=== PATIENT | male | born 1950 | race Caucasian/White ===

== ENCOUNTER 2021-05-29 15:15 | Observation (INO) | payer MEDICARE, OTHER ==
[~2021-05-29] VITALS: Ht 193 cm; Wt 84.3 kg
[2021-05-29 15:38] VITALS: BP 129/78
[2021-05-29] MEDS ORDERED: CARB1TAB22 PO (16:18)
[2021-05-29] MEDS ORDERED: ACET325T21 PO (16:18)
[2021-05-29] MEDS ORDERED: ARFO15VI NEB (16:18)
[2021-05-29] MEDS ORDERED: MENT7.6L2 PO (16:18)
[2021-05-29] MEDS ORDERED: ALEN70TA71 PO (16:18)
[2021-05-29] MEDS ORDERED: PREG100C PO (16:31)
[2021-05-29] MEDS ORDERED: POLY17PO5 PO (16:31)
[2021-05-29] MEDS ORDERED: MEMA5TAB PO (16:31)
[2021-05-29] MEDS ORDERED: CHOL10004 PO (16:31)
[2021-05-29] MEDS ORDERED: PROM25SU33 RC (16:31)
[2021-05-29] MEDS ORDERED: IPRA3AMP29 NEB (16:31)
[2021-05-29] MEDS ORDERED: ALPR0.5T PO (16:31)
[2021-05-29] MEDS ORDERED: DULO60CA6 PO (16:31)
[2021-05-29] MEDS ORDERED: CALC11776 PO (16:31)
[2021-05-29] MEDS ORDERED: DOCU100C28 PO (16:31)
--- NOTE | 2021-05-29 16:32 | NUR ---
NSG NOTE; ADMISSION ADMIT TO 107 FOR COVID SWAB BEFORE ADMISSION TO [facility]. PT ARRIVED VIA W/C ACCOMP BY TRANSPORT PERSONNEL DNR PAPERWORK SIGNED BY DR GONZALEZ PER DAUGHTER DANILO WHITE'S REQUEST.
[2021-05-29] MEDS ORDERED: ACETAMINOPHEN 325 MG TABLET PO PRN (17:45)
[2021-05-29] MEDS ORDERED: IPRATRPIUM/ALBUTEROL 0.5/2.5MG 3 ML NEBU. NEB PRN (17:45)
[2021-05-29] MEDS ORDERED: BENZOCAINE/MENTHOL LOZNGE 18'S BOX. PO PRN (17:45)
[2021-05-29] MEDS ORDERED: PROMETHAZINE 25 MG SUPP.RECT. RC PRN (17:45)
[2021-05-29] MEDS ORDERED: POLYETHYLENE GLYCOL 3350 17 GM PACKET. PO PRN (17:45)
[2021-05-29] MEDS ORDERED: DOCUSATE SODIUM 100 MG CAPSULE PO PRN (17:45)
[2021-05-29] MEDS ORDERED: CALCIUM CARBONATE 500 MG TAB.CHEW PO PRN (17:45)
[2021-05-29] MEDS ORDERED: ALBUTEROL SULFATE 2.5 MG/3 ML NEBU. NEB SCH (18:00)
[2021-05-29 18:06] LABS: BASO % 1 % (0-3); EOS # 0.3 x10^3/uL (0.0-0.7); EOS % 5 % (0-3); HEMATOCRIT 44.8 % (39.0-53.0); HEMOGLOBIN 14.7 g/dL (13.0-17.5); LYMPH # 1.6 x10^3/uL (1.0-4.8); LYMPH % 25 % (24-48); MEAN CORPUSCULAR HEMOGLOBIN 29 pg (25-35); MEAN CORPUSCULAR HGB CONC 33 g/dL (31-37); MEAN CORPUSCULAR VOLUME 90 fL (79-100); MONO # 0.5 x10^3/uL (0.0-1.1); MONO % 8 % (0-9); NEUT % 62 % (31-73); PLATELET COUNT 122 x10^3/uL (140-400); RED BLOOD COUNT 4.98 x10^6/uL (4.30-5.70); RED CELL DISTRIBUTION WIDTH 14.4 % (11.5-14.5); WHITE BLOOD COUNT 6.4 x10^3/uL (4.0-11.0)
[2021-05-29] MEDS: CARBIDOPA/LEVODOPA 25/100MG TABLET PO SCH ×2 (18:08→20:34)
[2021-05-29 18:24] LABS: ALBUMIN 3.5 g/dL (3.4-5.0); ALBUMIN/GLOBULIN RATIO 1.1 (1.0-1.7); CALCIUM 8.7 mg/dL (8.5-10.1); CREATININE 0.9 mg/dL (0.7-1.3); GFR 82.9; MAGNESIUM 2.3 mg/dL (1.8-2.4); TOTAL BILIRUBIN 0.6 mg/dL (0.2-1.0); TOTAL PROTEIN 6.8 g/dL (6.4-8.2)
--- NOTE | 2021-05-29 18:32 | EKG ---
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
[2021-05-29] MEDS: MEMANTINE 5 MG TABLET. PO SCH (20:34)
[2021-05-29] MEDS: PREGABALIN 50 MG CAPSULE PO SCH (20:34)
[2021-05-29] MEDS: ALPRAZolam 0.5 MG TABLET PO PRN (20:34)
[2021-05-29] MEDS ORDERED: NON FORMULARY ITEM (Arformoterol Tartrate (Brovana) 1 VIAL) NEB SCH (21:00)
[2021-05-29 22:24] LABS: BILIRUBIN,URINE NEG (NEG); CLARITY,URINE CLEAR; COLOR,URINE YELLOW; GLUCOSE,URINE NEG (NEG); NITRITE,URINE NEG (NEG); UROBILINOGEN,URINE 0.2 mg/dL (0.2 mg/dL)
[2021-05-29 22:25] LABS: BACTERIA,URINE 0 /HPF (0-FEW); RBC,URINE 0 /HPF (0-2); SQUAMOUS EPITHELIAL CELL,UR OCC /LPF; WBC,URINE 0 /HPF (0-4)
[2021-05-30] MEDS: ALBUTEROL SULFATE 8GM INHALER. INH SCH ×2 (04:35)
[2021-05-30] MEDS: CARBIDOPA/LEVODOPA 25/100MG TABLET PO SCH ×2 (04:35→09:41)
[2021-05-30] MEDS: ALPRAZolam 0.5 MG TABLET PO PRN (04:35)
[2021-05-30] MEDS: PREGABALIN 50 MG CAPSULE PO SCH (08:10)
[2021-05-30] MEDS: MEMANTINE 5 MG TABLET. PO SCH (08:10)
[2021-05-30] MEDS ORDERED: CHOLECALCIFEROL (VITAMIN D3) 1,000 UNIT TABLET PO SCH (09:00)
[2021-05-30] MEDS ORDERED: DULoxetine HCL 60 MG CAPSULE.DR PO SCH (09:00)
[2021-05-30 11:10] LABS: THYROXINE 5.5 ug/dL (4.5-12.0)
--- NOTE | 2021-05-30 11:32 | NUR ---
NSG NOTE; DISCHARGE VERBAL REPORT GIVEN TO ESTHER SAM AT 1115 PAPER COPY OF CHART SENT WITH PT DISCHARGED TO [facility] AT 1115 VIA W/C ACCOMP BY STAFF ALL PERSONAL ITEMS SENT WITH PT
[2021-05-30] MEDS ORDERED: MENT5LOZ MM (13:30)
[2021-05-30] MEDS ORDERED: ONDA4TAB12 PO (13:30)
[2021-05-30] MEDS ORDERED: CYCL-331 PO (13:30)
[2021-05-30 14:24] LABS: THYROID STIM HORMONE (TSH) 2.382 uIU/mL (0.358-3.740)
[2021-05-30] MEDS ORDERED: ALENDRONATE SODIUM 35 MG TABLET PO SCH (16:00)
[2021-05-31 00:09] LABS: HEMOGLOBIN A1C 5.7 % (4.8-5.6)
--- NOTE | 2021-05-31 20:11 | HP ---
HISTORY OF PRESENT ILLNESS: The patient is a 71-year-old male patient, a resident at [facility] in [place], [place], who was admitted to [address] [place] [address] to screening for COVID-19 before admission to [facility] as the patient has been agitated, anxious, restless and combative, hit staff member, sexually inappropriate remarks, grabbed staff buttocks, wandering into other rooms, attempts to redirection ____ as well as visits were not much helpful, and therefore, a decision was made to eventually admit him to [facility] for inpatient psychiatric stabilization. PAST MEDICAL HISTORY: Significant for Parkinson's disease, osteoarthritis, dysphagia and insomnia. PAST PSYCHIATRIC HISTORY: Significant for major depressive disorder and dementia. ALLERGIES: The patient has no known drug allergies. ALLERGIES TO MEDICATIONS: He is currently on following medications -- he is on promethazine 25 mg every 4 hours as needed rectally, ipratropium bromide, albuterol sulfate, and DuoNeb in 3 mL by nebulizer three times a day, Brovana 15 mcg 2 mL by nebulizer twice a day, cyclobenzaprine 10 mg every 8 hours, acetaminophen 650 mg every 6 hours, pregabalin 100 mg twice a day, duloxetine 60 mg daily, alprazolam 0.5 mg he takes every 8 hours, carbidopa/levodopa 25/100 one tablet 5 times a day, Namenda 5 mg twice a day, menthol cough drops every hour as needed, calcium carbonate, Tums Ultra strength 1 tablet 3 times a day as needed, Colace 100 mg twice a day as needed, propylene glycol 17 grams daily p.r.n. for constipation, ondansetron 4 mg every 4 hours as needed, cholecalciferol - vitamin D3 of 25 mcg daily, alendronate 70 mg once a week. FAMILY HISTORY: Noncontributory. SOCIAL HISTORY: He is , currently a resident at [facility] in [place], [place]. PHYSICAL EXAMINATION: GENERAL: When I examined him, he looked well and was clearly in no apparent respiratory distress. No pallor, jaundice, cyanosis, or thyromegaly. No jugular venous distention. No limb edema. VITAL SIGNS: Her heart rate was 67, blood pressure is 129/78, temperature 97.6, respiratory rate was 16 and oxygen saturation was 97% on room air. HEAD, EYES, EARS, NOSE, AND THROAT: Normocephalic, atraumatic. NECK: Supple. HEART: Normal first and second sounds, no gallop or murmur. CHEST: Clear to auscultation. No crepitation or rhonchi. ABDOMEN: Distended, soft, nontender. NEUROLOGIC: He was awake, alert, very soft spoken; poor facial expression and patient is very unsteady on his feet. ASSESSMENT AND PLAN: The patient was admitted and lab works were ordered including CBC, CMP as well as coronavirus. Once his coronavirus test becomes available is negative, the patient will be admitted to [facility] for inpatient psychiatric stabilization. KIMBERLY/MARLA DR: Dave TID: [id number]
--- NOTE | 2021-05-31 21:06 | DS ---
DATE OF DISCHARGE: 05/30/2021 HOSPITAL COURSE: The patient is a 71-year-old male patient, a resident at [facility] in [facility], was admitted to [address] [place] [address] and his coronavirus by PCR was negative and therefore, he was discharged to [facility] for inpatient psychiatric stabilization. PHYSICAL EXAMINATION: GENERAL: On the day of discharge, the patient looked well and was clearly in no apparent respiratory distress. No pallor, jaundice, cyanosis, or thyromegaly. No jugular venous distention. No limb edema. VITAL SIGNS: His heart rate was 70, blood pressure was 125/70, temperature was 98, respiratory rate was 18, and oxygen saturation was 96% on room air. The rest of clinical examination is stable. LABORATORY DATA: Showed white cell count is 6400, hemoglobin 14.7, hematocrit 44, MCV 90, and platelet count of 122,000. Chemistry showed a serum sodium of 144, potassium 4, chloride 109, bicarbonate 29, anion gap of 6, BUN 17, creatinine 0.9. Estimated GFR was 83 mL per minute. His glucose was 83, calcium was 8.7, magnesium was 2.3. Total bilirubin, AST, ALT, alkaline phosphatase were normal. Total protein was 6.8, albumin 3.5. His D-dimer was 0.43. Urinalysis essentially unremarkable and his treponema pallidum antibodies were nonreactive and coronavirus by PCR was negative. DISCHARGE MEDICATIONS: He was discharged to [facility] to continue on Brovana 15 mcg in 2 mL by nebulizer twice a day, calcium carbonate/extra strength Tums 3 times a day, carbidopa/levodopa 25/100 five times a day, cholecalciferol 3000 unit once a day, Namenda 5 mg twice a day. He is on acetaminophen 650 mg every 6 hours, alendronate 70 mg once a week, alprazolam 0.5 mg every 8 hours, Colace 100 mg daily p.r.n. for constipation, duloxetine 60 mg p.o. daily for depression, DuoNeb 0.5/2.5 in 3 mL by nebulizer four times a day, polyethylene glycol 17 grams daily; pregabalin, Lyrica 100 mg twice a day; promethazine 25 mg suppositories 3 times a day. FINAL DISCHARGE DIAGNOSES: Parkinson's disease, dysphagia, insomnia, generalized osteoarthritis, osteoporosis. MICHELLE DR: Dave TID: [id number]
== END 2021-05-30 11:15 ==
LOC: INTOOBSV 15:15 → 1 SOUTH 15:15
PROVIDERS: ADMIT Internal Medicine; ATTEND Internal Medicine
DX: G20 Parkinson's disease (principal); Z20.822 Contact with and (suspected) exposure to COVID-19; G47.00 Insomnia, unspecified; M81.0 Age-related osteoporosis without current pathological fracture; M15.9 Polyosteoarthritis, unspecified; R13.10 Dysphagia, unspecified; R45.1 Restlessness and agitation; F03.90 Unspecified dementia, unspecified severity, without behavioral disturbance, psychotic disturbance, mood disturbance, and anxiety; F32.9 Major depressive disorder, single episode, unspecified
CPT/HCPCS: 36415; G0378; G0379; 80053; 80061; 81001; 82306; 82607; 83036; 83540; 83550; 83735; 84436; 84443; 84480; 85025; 85379; 86592; 93005; U0003

== ENCOUNTER 2021-05-30 11:15 | Inpatient (IN) | payer MEDICARE, OTHER ==
[~2021-05-30] VITALS: Ht 190.5 cm; Wt 86.5 kg
[~2021-05-30 11:15] MED LIST: ACET325T21 PO; ALEN70TA71 PO; ALPR0.5T PO; ARFO15VI NEB; CALC11776 PO; CARB1TAB22 PO; CHOL10004 PO; DOCU100C28 PO; DULO60CA6 PO; IPRA3AMP29 NEB; MEMA5TAB PO; MENT7.6L2 PO; POLY17PO5 PO; PREG100C PO; PROM25SU33 RC
--- NOTE | 2021-05-30 11:30 | NUR ---
Admission Note with Justification for Admission to [facility] Patient admitted to [facility] for protective oversight for emergency stabilization of acute psychiatric crisis. Pt admitted from: SNF Mode of arrival: EMS Accompanied By: [facility] Staff Precipitating behaviors that initiated intake and admission: Patient was reported to be agitated with staff and making verbal threats to beat their asses, grabbing a staff member on her buttock while she was assisting him to bed, wandering in halls and in other residents' rooms, resisting care and attempting to hit staff. He reportedly attempted to hug, kiss, and show genitals to staff and having hallucinations that was present when she was not. Description of failure of out patient attempts at stabilization in previous setting list behavior and medication trials: Verbal redirection and medication changes were ineffective Behaviors and assessment findings upon admission: Patient was disorganized, confused, and tangental on admission. He was hallucinating and reaching for items on the floor that were not there. He is restless and impulsive, repeatedly attempting to stand without assistance. Plan: Admit for protective oversight for adjustment and stabilization of medications, behaviors and mood. Intense treatment regimen including groups, medication adjustments, therapy, consistent regimen for ADL's, self care, and sleep hygiene. Daily monitoring by Inpatient staff, Psychiatry, and Medical Physician.
[2021-05-30] MEDS ORDERED: ACETAMINOPHEN 325 MG TABLET PO PRN (13:00)
[2021-05-30] MEDS ORDERED: METHYL SALICYLATE/MENTHOL TOPICAL OINTMENT 57GM TUBE. TP PRN (13:00)
[2021-05-30] MEDS ORDERED: MAG HYDROX/AL HYDROX/SIMETH 30 ML ORAL.SUSP PO PRN (13:00)
[2021-05-30] MEDS ORDERED: MAGNESIUM HYDROXIDE 2,400 MG/30 ML ORAL.SUSP. PO PRN (13:00)
[2021-05-30] MEDS ORDERED: CYCLOBENZAPRINE 10 MG TABLET. PO PRN (13:15)
[2021-05-30] MEDS ORDERED: PROMETHAZINE 25 MG SUPP.RECT. RC PRN (13:15)
[2021-05-30] MEDS ORDERED: POLYETHYLENE GLYCOL 3350 17 GM PACKET. PO PRN (13:15)
[2021-05-30] MEDS ORDERED: DOCUSATE SODIUM 100 MG CAPSULE PO PRN (13:15)
[2021-05-30] MEDS ORDERED: ONDANSETRON ODT 4 MG TAB.RAPDIS PO PRN (13:15)
[2021-05-30] MEDS ORDERED: CYCL-331 PO (13:30)
[2021-05-30] MEDS ORDERED: MENT5LOZ MM (13:30)
[2021-05-30] MEDS ORDERED: ONDA4TAB12 PO (13:30)
[2021-05-30 13:57] VITALS: BP 117/76
[2021-05-30] MEDS: CARBIDOPA/LEVODOPA 25/100MG TABLET PO SCH ×3 (14:00→21:29)
[2021-05-30] MEDS ORDERED: BENZOCAINE/MENTHOL LOZNGE 18'S BOX. PO PRN (14:00)
[2021-05-30] MEDS ORDERED: CALCIUM CARBONATE 500 MG TAB.CHEW PO PRN (14:00)
[2021-05-30] MEDS ORDERED: IPRATROPIUM/ALBUTEROL 20/100mcg/INH INHALER. INH PRN (14:00)
[2021-05-30 16:03] VITALS: BP 107/76
[2021-05-30] MEDS: ALBUTEROL SULFATE 8GM INHALER. INH SCH ×2 (17:44→20:00)
[2021-05-30] MEDS: PREGABALIN 50 MG CAPSULE PO SCH (21:29)
[2021-05-30] MEDS: MEMANTINE 5 MG TABLET. PO SCH (21:29)
--- NOTE | 2021-05-30 22:11 | PDOC ---
Exam Note: Hank Note: Please also refer to the separate dictated note~for this date of service dictated separately.~Patient seen individually. Discussed the patient with Nursing staff reviewed the chart.~Reviewed interim history and current functioning. Reviewed vital signs,~Labs/ Radiology~and current medications noted below. Continue current treatment with the changes noted in the dictated addendum note Assessment: Vital Signs/I&O: Vital Signs Date Time Temp Pulse Resp B/P (MAP) Pulse Ox O2 Delivery O2 Flow Rate FiO2 05/30/21 16:03 97.1 78 19 107/76 (86) 94 Room Air Current Medications: Meds: Current Medications Medications (Trade) Dose Ordered Sig/Altaf Route PRN Reason Start Time Stop Time Status Last Admin Dose Admin Carbidopa/Levodopa (Sinemet 25/100) 1 tab 5XDAY PO 05/30/21 14:00 05/30/21 21:29 Memantine (Namenda) 5 mg BID PO 05/30/21 21:00 05/30/21 21:29 Pregabalin (Lyrica) 100 mg BID PO 05/30/21 21:00 05/30/21 21:29 I have reviewed the current psychotropics carefully including drug interactions. Risk benefit ratio favors no change other than as noted in my dictated progress note. Diagnosis: Problems: (1) Major neurocognitive disorder RENEE RAINEY MD May 30, 2021 22:11
--- NOTE | 2021-05-31 00:16 | NUR ---
Pt lying in bed when approached. Pt has been wandering in the hallway talking to himself and the door frame, appearing to hold a conversation with no one in particular. Pt also confused, disorganized, and restless. Pt cooperative with assessment, initially compliant with medications administered crushed in pudding but tried to smack the spoon out of my hand while attempting to administer the last bite. I was able to calm and distract him, re-approaching with the last bite of meds after a few moments and pt took it.
[2021-05-31] MEDS: ALENDRONATE SODIUM 35 MG TABLET PO SCH (05:57)
[2021-05-31] MEDS: CARBIDOPA/LEVODOPA 25/100MG TABLET PO SCH ×5 (05:57→20:18)
[2021-05-31] MEDS ORDERED: ALENDRONATE SODIUM 35 MG TABLET PO SCH (06:00)
[2021-05-31 06:24] VITALS: BP 138/95
--- NOTE | 2021-05-31 06:28 | EKG ---
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
[2021-05-31] MEDS: PREGABALIN 50 MG CAPSULE PO SCH ×2 (08:14→20:17)
[2021-05-31] MEDS: MEMANTINE 5 MG TABLET. PO SCH ×2 (08:14→20:17)
[2021-05-31] MEDS: DULoxetine HCL 60 MG CAPSULE.DR PO SCH (08:18)
[2021-05-31] MEDS: ALBUTEROL SULFATE 8GM INHALER. INH SCH ×4 (08:19→20:17)
[2021-05-31] MEDS: CHOLECALCIFEROL (VITAMIN D3) 1,000 UNIT TABLET PO SCH (08:21)
[2021-05-31 15:22] VITALS: BP 107/71
--- NOTE | 2021-05-31 19:28 | NUR ---
Pt up adl in [place]. Has been unsteady at times. Pt confused but has been compliant with meds and cares.
--- NOTE | 2021-05-31 20:09 | HP ---
ADMIT DATE: 05/30/2021 PSYCHIATRIC ADMISSION HISTORY/EVALUATION This is a late entry, date of service, 05/30/2021, covers elements not covered in my initial note of 05/30/2021. The patient was seen individually on the evening of 05/30/2021. IDENTIFYING DATA: The patient is a 71-year-old male with diagnosis of dementia, Alzheimer's with behavioral disturbances, referred from [facility] by his primary care physician in [place], [place], after the patient was extremely agitated with staff and making verbal threats to beat their asses. He grabbed a staff from the buttock while she was insisting him to bed. He was wandering in the hallways and in other rooms. He was resistive of cares attempting to hit staff. He had attempted to hug and kiss staff, showed his genitals to staff. He was hallucinating that his was present in front of him. He has failed outpatient psychiatric interventions resulting in this referral. CHIEF COMPLAINT: "No." I met with the patient in his room. He is oriented just to himself on the evening of 05/30/2021. HISTORY OF PRESENT ILLNESS: The patient has a history of dementia, Alzheimer's, vascular type. He has been residing at the [facility] for some time, getting much more agitated, aggressive, confused, disruptive, and unmanageable. He has had sleep and appetite changes. No active suicidal or homicidal ideation, but behaviors have been dangerous having failed outpatient psychiatric interventions. PAST PSYCHIATRIC HISTORY: As above. MEDICAL HISTORY: Parkinson's disease, frequent falls, dysphagia, insomnia, osteoporosis, chronic pain, chronic constipation, emphysema, GERD. ACCU-CHEKS: None. CODE STATUS: FULL CODE. DRUG ALLERGIES: Negative. DIET: Mechanical soft diet. Takes medications whole, crushed. Ambulates in wheelchair. CURRENT PSYCHOTROPICS: Cymbalta 60 mg a day, Xanax p.r.n., Lyrica 100 mg b.i.d., Namenda 5 mg b.i.d., Sinemet 25/100 5 times a day. FAMILY HISTORY: Noncontributory. SOCIAL HISTORY: No history of alcohol, drug abuse, physical, sexual or elder abuse. He is not known to be a perpetrator. REACTION TO HOSPITALIZATION: The patient oblivious of this. ASSETS: Supportive living at the above facility, supportive family. REVIEW OF SYSTEMS: No CV, , pulmonary, eye, ENT system symptoms on review. Reliability poor. MENTAL STATUS EXAMINATION: Oriented to himself. Insight, judgment, recent and remote memory, attention, concentration, fund of knowledge poor consistent with his diagnosis. IMPRESSION: Major neurocognitive disorder, Alzheimer, vascular with delusion, depression, behavioral disturbance; anxiety disorder, unspecified; impulse control disorder, unspecified. Rest unchanged as noted above. PLAN: Admit to geropsychiatry unit at [facility]. I will see the patient daily individually from a psychiatric standpoint, medical followup with Dr. Silva/Dr. Miller. Continue current psychotropics. Observe baseline. Adjust further as clinically indicated. ESTIMATED LENGTH OF STAY: 10-12 days. DISPOSITION PLANS: Back to assisted when stable. FLAQUITA DR: Jordon TID: [id number]
[2021-05-31] MEDS: MIRTAZAPINE 7.5 MG TABLET. PO SCH (20:17)
--- NOTE | 2021-05-31 22:22 | PDOC ---
Exam Note: Hank Note: Please also refer to the separate dictated note~for this date of service dictated separately.~Patient seen individually. Discussed the patient with Nursing staff reviewed the chart.~Reviewed interim history and current functioning. Reviewed vital signs,~Labs/ Radiology~and current medications noted below. Continue current treatment with the changes noted in the dictated addendum note Assessment: Vital Signs/I&O: Vital Signs Date Time Temp Pulse Resp B/P (MAP) Pulse Ox O2 Delivery O2 Flow Rate FiO2 05/31/21 15:22 97.9 74 18 107/71 (83) 97 Room Air I & O 05/30/21 05/30/21 05/31/21 15:00 23:00 07:00 Intake Total 240 ml 240 ml Balance 240 ml 240 ml Current Medications: Meds: Current Medications Medications (Trade) Dose Ordered Sig/Altaf Route PRN Reason Start Time Stop Time Status Last Admin Dose Admin Acetaminophen (Tylenol) 650 mg PRN Q6HRS PRN PO MILD PAIN / TEMP > 100.3'F 05/30/21 13:00 Multi-Ingredient Ointment (Analgesic [place]) 1 abdi PRN QID PRN TP MUSCLE PAIN 05/30/21 13:00 Al Hydroxide/Mg Hydroxide (Mylanta Plus Xs) 15 ml PRN AFTMEALHC PRN PO DYSPEPSIA 05/30/21 13:00 Magnesium Hydroxide (Milk Of Magnesia) 2,400 mg PRN QHS PRN PO CONSTIPATION 05/30/21 13:00 Alprazolam (Xanax) 0.5 mg PRN Q8HRS PRN PO ANXIETY 05/30/21 13:15 Carbidopa/Levodopa (Sinemet 25/100) 1 tab 5XDAY PO 05/30/21 14:00 05/31/21 20:18 Vitamin D (Vitamin D3) 2,000 unit DAILY PO 05/31/21 09:00 05/31/21 08:21 Cyclobenzaprine HCl (Flexeril) 10 mg PRN Q8HRS PRN PO MUSCLE SPASMS 05/30/21 13:15 Docusate Sodium (Colace) 100 mg PRN DAILY PRN PO CONSTIPATION 05/30/21 13:15 Duloxetine HCl (Cymbalta) 60 mg DAILY PO 05/31/21 09:00 05/31/21 08:18 Albuterol/ Ipratropium (Combivent Respimat 20-100 Mcg) 1 puff PRN TID PRN INH SHORTNESS OF BREATH 05/30/21 14:00 Memantine (Namenda) 5 mg BID PO 05/30/21 21:00 05/31/21 20:17 Ondansetron HCl (Zofran Odt) 4 mg PRN Q4HRS PRN PO NAUSEA/VOMITING 05/30/21 13:15 Polyethylene Glycol (miraLAX) 17 gm PRN DAILY PRN PO CONSTIPATION 05/30/21 13:15 Promethazine HCl (Phenergan Supp) 25 mg PRN Q4HRS PRN RC NAUSEA 05/30/21 13:15 Alendronate Sodium (Fosamax) 70 mg WEEKLY@0600 PO 05/31/21 06:00 05/30/21 22:18 DC Albuterol Sulfate (Ventolin Hfa Inhaler) 1 puff RTQID INH 05/30/21 16:00 05/31/21 20:17 Calcium Carbonate/ Glycine (Tums) 500 mg TID PRN PRN PO HEARTBURN / GAS 05/30/21 14:00 Throat Lozenges (Cepacol Sore Throat Lozenge) 1 linnette PRN Q2HR PRN PO COUGH 05/30/21 14:00 Pregabalin (Lyrica) 100 mg BID PO 05/30/21 21:00 05/31/21 20:17 Alendronate Sodium (Fosamax) 70 mg Sa PO 05/31/21 06:00 05/31/21 05:57 Mirtazapine (Remeron) 7.5 mg QHS PO 05/31/21 21:00 05/31/21 20:17 Current Medications Medications (Trade) Dose Ordered Sig/Altaf Route PRN Reason Start Time Stop Time Status Last Admin Dose Admin Vitamin D (Vitamin D3) 2,000 unit DAILY PO 05/31/21 09:00 05/31/21 08:21 Duloxetine HCl (Cymbalta) 60 mg DAILY PO 05/31/21 09:00 05/31/21 08:18 Alendronate Sodium (Fosamax) 70 mg Sa PO 05/31/21 06:00 05/31/21 05:57 Mirtazapine (Remeron) 7.5 mg QHS PO 05/31/21 21:00 05/31/21 20:17 I have reviewed the current psychotropics carefully including drug interactions. Risk benefit ratio favors no change other than as noted in my dictated progress note. Diagnosis: Problems: (1) Dementia in Alzheimer's disease with delusions (2) Dementia in Alzheimer's disease with depression (3) Dementia, vascular, with delusions (4) Dementia, vascular, with depression (5) Dementia of the Alzheimer's type with early onset with behavioral disturbance (6) Impulse control disorder, unspecified (7) Anxiety disorder, unspecified (8) Major neurocognitive disorder RENEE RAINEY MD May 31, 2021 22:22
--- NOTE | 2021-06-01 01:13 | NUR ---
Pt sitting up in w/c in the hallway when approached. Pt restless, confused, and disorganized. Pt having VH, reaching for things on the floor that are not there. Pt resistive with re-direction at times. Pt cooperative with assessment and compliant with medications administered whole with encouragement. NO SIB, agitation, or aggression noted thus far this shift.
[2021-06-01] MEDS: CARBIDOPA/LEVODOPA 25/100MG TABLET PO SCH ×6 (05:31→20:22)
[2021-06-01 06:06] VITALS: BP 98/60
[2021-06-01] MEDS: ALBUTEROL SULFATE 8GM INHALER. INH SCH ×5 (08:00→20:22)
[2021-06-01] MEDS: MEMANTINE 5 MG TABLET. PO SCH ×2 (09:39→20:22)
[2021-06-01] MEDS: CHOLECALCIFEROL (VITAMIN D3) 1,000 UNIT TABLET PO SCH (09:39)
[2021-06-01] MEDS: PREGABALIN 50 MG CAPSULE PO SCH ×2 (09:40→20:23)
[2021-06-01] MEDS: DULoxetine HCL 60 MG CAPSULE.DR PO SCH (09:40)
[2021-06-01 15:42] VITALS: BP 121/77
[2021-06-01] MEDS: DIVALPROEX 125 MG CAP.SPRINK PO SCH (17:56)
--- NOTE | 2021-06-01 18:30 | NUR ---
Patient has been labile, generally withdrawn to his room, confused, and irritable throughout this shift. He was irritable in the morning and resistive to morning medications. Patient was asleep during lunch and did not want to take his medications when aroused. He also refused to take his inhaler at supper time. Will continue to monitor and report to oncoming shift.
[2021-06-01] MEDS: MIRTAZAPINE 7.5 MG TABLET. PO SCH (20:23)
--- NOTE | 2021-06-01 23:19 | NUR ---
Patient is located in his room for assessment and medications. He is disorganized, confused. Does not answer assessment questions. Irritable and snarky when informed that he needed to change his wet brief, stating "No, I think I'll just do it in the morning." Staff informed him that this is a psychiatric unit and we will not just allow the patient to sleep in a wet brief. He continued to refuse. A third staff member was called for assistance in cleaning the patient up. He expressed his irritability but did allow staff to change him. When asked to lay down in the bed so he could be covered up, he stated "Keep your hands off of me." Staff told patient that was fine and he could lay down when he felt like it, and exited the room. Patient chose to remain sitting up for a short time, and then went to sleep. He appears to be sleeping comfortably at present time. Will continue to monitor.
[2021-06-02] MEDS: ALPRAZolam 0.5 MG TABLET PO PRN ×2 (01:31→20:27)
[2021-06-02] MEDS: CARBIDOPA/LEVODOPA 25/100MG TABLET PO SCH ×6 (05:50→20:27)
[2021-06-02 06:14] VITALS: BP 147/92
[2021-06-02] MEDS: PREGABALIN 50 MG CAPSULE PO SCH ×2 (08:26→20:27)
[2021-06-02] MEDS: MEMANTINE 5 MG TABLET. PO SCH ×2 (08:26→20:24)
[2021-06-02] MEDS: DIVALPROEX 125 MG CAP.SPRINK PO SCH ×2 (08:26→17:27)
[2021-06-02] MEDS: ALBUTEROL SULFATE 8GM INHALER. INH SCH ×4 (08:26→20:24)
[2021-06-02] MEDS: CHOLECALCIFEROL (VITAMIN D3) 1,000 UNIT TABLET PO SCH (08:26)
[2021-06-02] MEDS: DULoxetine HCL 60 MG CAPSULE.DR PO SCH (08:26)
--- NOTE | 2021-06-02 09:43 | PDOC ---
Exam Note: Hank Note: Late entry for 06/01/2021. Please also refer to the separate dictated note~for this date of service dictated separately.~Patient seen individually. Discussed the patient with Nursing staff reviewed the chart.~Reviewed interim history and current functioning. Reviewed vital signs,~Labs/ Radiology~and current medic ations noted below. Continue current treatment with the changes noted in the dictated addendum note Assessment: Vital Signs/I&O: Vital Signs Date Time Temp Pulse Resp B/P (MAP) Pulse Ox O2 Delivery O2 Flow Rate FiO2 06/02/21 06:14 96.6 79 14 147/92 (110) 96 Room Air I & O 06/01/21 06/01/21 06/02/21 15:00 23:00 07:00 Intake Total 1080 ml 120 ml Balance 1080 ml 120 ml Current Medications: Meds: Current Medications Medications (Trade) Dose Ordered Sig/Altaf Route PRN Reason Start Time Stop Time Status Last Admin Dose Admin Acetaminophen (Tylenol) 650 mg PRN Q6HRS PRN PO MILD PAIN / TEMP > 100.3'F 05/30/21 13:00 Multi-Ingredient Ointment (Analgesic [place]) 1 abdi PRN QID PRN TP MUSCLE PAIN 05/30/21 13:00 Al Hydroxide/Mg Hydroxide (Mylanta Plus Xs) 15 ml PRN AFTMEALHC PRN PO DYSPEPSIA 05/30/21 13:00 Magnesium Hydroxide (Milk Of Magnesia) 2,400 mg PRN QHS PRN PO 2ND CHOICE CONSTIPATION 05/30/21 13:00 Alprazolam (Xanax) 0.5 mg PRN Q8HRS PRN PO ANXIETY 05/30/21 13:15 06/02/21 01:31 Carbidopa/Levodopa (Sinemet 25/100) 1 tab 5XDAY PO 05/30/21 14:00 06/02/21 08:26 Vitamin D (Vitamin D3) 2,000 unit DAILY PO 05/31/21 09:00 06/02/21 08:26 Cyclobenzaprine HCl (Flexeril) 10 mg PRN Q8HRS PRN PO MUSCLE SPASMS 05/30/21 13:15 Docusate Sodium (Colace) 100 mg PRN DAILY PRN PO 1ST CHOICE CONSTIPATION 05/30/21 13:15 Duloxetine HCl (Cymbalta) 60 mg DAILY PO 05/31/21 09:00 06/02/21 08:26 Albuterol/ Ipratropium (Combivent Respimat 20-100 Mcg) 1 puff PRN TID PRN INH SHORTNESS OF BREATH 05/30/21 14:00 Memantine (Namenda) 5 mg BID PO 05/30/21 21:00 06/02/21 08:26 Ondansetron HCl (Zofran Odt) 4 mg PRN Q4HRS PRN PO 1ST CHOICE NAUSEA/VOMITING 05/30/21 13:15 Polyethylene Glycol (miraLAX) 17 gm PRN DAILY PRN PO 2ND CHOICE CONSTIPATION 05/30/21 13:15 Promethazine HCl (Phenergan Supp) 25 mg PRN Q4HRS PRN RC 2ND CHOICE NAUSEA 05/30/21 13:15 Alendronate Sodium (Fosamax) 70 mg WEEKLY@0600 PO 05/31/21 06:00 05/30/21 22:18 DC Albuterol Sulfate (Ventolin Hfa Inhaler) 1 puff RTQID INH 05/30/21 16:00 06/02/21 08:26 Calcium Carbonate/ Glycine (Tums) 500 mg TID PRN PRN PO HEARTBURN / GAS 05/30/21 14:00 Throat Lozenges (Cepacol Sore Throat Lozenge) 1 linnette PRN Q2HR PRN PO COUGH 05/30/21 14:00 Pregabalin (Lyrica) 100 mg BID PO 05/30/21 21:00 06/02/21 08:26 Alendronate Sodium (Fosamax) 70 mg Sa PO 05/31/21 06:00 05/31/21 05:57 Mirtazapine (Remeron) 7.5 mg QHS PO 05/31/21 21:00 06/01/21 20:23 Divalproex Sodium (Depakote Sprinkles) 125 mg 0900,1700 PO 06/01/21 17:00 06/02/21 08:26 Current Medications Medications (Trade) Dose Ordered Sig/Altaf Route PRN Reason Start Time Stop Time Status Last Admin Dose Admin Divalproex Sodium (Depakote Sprinkles) 125 mg 0900,1700 PO 06/01/21 17:00 06/02/21 08:26 I have reviewed the current psychotropics carefully including drug interactions. Risk benefit ratio favors no change other than as noted in my dictated progress note. Diagnosis: Problems: (1) Major neurocognitive disorder (2) Impulse control disorder, unspecified (3) Anxiety disorder, unspecified (4) Dementia, vascular, with depression (5) Dementia, vascular, with delusions (6) Dementia in Alzheimer's disease with depression (7) Dementia in Alzheimer's disease with delusions (8) Dementia of the Alzheimer's type with early onset with behavioral disturbance RENEE RAINEY MD Jun 02, 2021 09:43
--- NOTE | 2021-06-02 09:56 | NUR ---
RONNIE met with Silver on 05/30/21 to socialize and support related to recent admission. Silver was resting in bed and agreeable to speak with RONNIE. Silver was alert and oriented to himself, confused to place and time. Silver was able to provide some of his history, RONNIE is unsure of the accuracy of what he shared as speech was confused at times. Silver needed ample time to process, respond, and put his thoughts into words. RONNIE left message for Laurel, /POEliot, this date with intention to verify social history that Silver had provided and invite to participate in team meeting. Awaiting return phone call from Laurel.
--- NOTE | 2021-06-02 13:09 | NUR ---
WEEKLY ACTIVITY THERAPY NOTE Date of Admission: 05/30/21 Date of AT Assessment:TBD Precipitating behaviors that initiated intake and admission: Patient was reported to be agitated with staff and making verbal threats to beat their asses, grabbing a staff member on her buttock while she was assisting him to bed, wandering in halls and in other residents' rooms, resisting care and attempting to hit staff. He reportedly attempted to hug, kiss, and show genitals to staff and having hallucinations that was present when she was not. Goal aimed: TBD Initial Goal: TBD Weekly progress towards goal: NA Group participation level: NA Weekly highlights: arrived on [facility] Behaviors observed: new patient Plan: meet/assess pt Beneficial adaptations: TBD
--- NOTE | 2021-06-02 13:35 | NUR ---
ACTIVITY THERAPY ASSESSMENT completed based on notes,observation and interview. Pt was sitting in the isolation hallway for his ten day quarantine and agreed to answer questions. Pt was attempting to stand and kept requesting for AT to give him a hand. AT tried to redirect pt back into the chair but he stood up. AT explained groups offered on [facility] and pt said that he enjoys reading, watching TV, sudoku and crosswords.Pt said that he does not like fishing or exercise. Pt was able to provide his birthday but disorganized and confused about remaining orientation questions. Pt said that he is and has been for eight years. Pt said that he has one daughter and one son. Pt then stated "Can we wrap this up?" Pt was irritable at the end of assessment but AT was able to redirect him. Per notes pt has been resistive with cares and labile at times. Pt is disorganized and confused and requires lots of encouragement. Initial goal aimed to increase stress management and relaxation skills. Pt will participate in at least three individual or group Activity Therapy session before discharge.
--- NOTE | 2021-06-02 14:27 | NUR ---
Nursing note: Patient in martines for morning medications & assessment, medications taken whole in pudding. He is A/O to self, disorganized, & confused. He ambulates independently, can be unsteady at times. Denies pain/discomfort at this time. Patient is currently sitting in martines. Will continue to monitor.
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
[2021-06-02 15:44] VITALS: BP 131/82
[2021-06-02] MEDS: MIRTAZAPINE 7.5 MG TABLET. PO SCH (20:24)
--- NOTE | 2021-06-02 22:06 | PDOC ---
Exam Note: Hank Note: Please also refer to the separate dictated note~for this date of service dictated separately.~Patient seen individually. Discussed the patient with Nursing staff reviewed the chart.~Reviewed interim history and current functioning. Reviewed vital signs,~Labs/ Radiology~and current medications noted below. Continue current treatment with the changes noted in the dictated addendum note Assessment: Vital Signs/I&O: Vital Signs Date Time Temp Pulse Resp B/P (MAP) Pulse Ox O2 Delivery O2 Flow Rate FiO2 06/02/21 15:44 97.7 90 18 131/82 (98) 98 06/02/21 06:14 Room Air I & O 06/01/21 06/01/21 06/02/21 14:59 22:59 06:59 Intake Total 1080 ml 120 ml Balance 1080 ml 120 ml Current Medications: Meds: Current Medications Medications (Trade) Dose Ordered Sig/Altaf Route PRN Reason Start Time Stop Time Status Last Admin Dose Admin Acetaminophen (Tylenol) 650 mg PRN Q6HRS PRN PO MILD PAIN / TEMP > 100.3'F 05/30/21 13:00 Multi-Ingredient Ointment (Analgesic [place]) 1 abdi PRN QID PRN TP MUSCLE PAIN 05/30/21 13:00 Al Hydroxide/Mg Hydroxide (Mylanta Plus Xs) 15 ml PRN AFTMEALHC PRN PO DYSPEPSIA 05/30/21 13:00 Magnesium Hydroxide (Milk Of Magnesia) 2,400 mg PRN QHS PRN PO 2ND CHOICE CONSTIPATION 05/30/21 13:00 Alprazolam (Xanax) 0.5 mg PRN Q8HRS PRN PO ANXIETY 05/30/21 13:15 06/02/21 20:27 Carbidopa/Levodopa (Sinemet 25/100) 1 tab 5XDAY PO 05/30/21 14:00 06/02/21 20:27 Vitamin D (Vitamin D3) 2,000 unit DAILY PO 05/31/21 09:00 06/02/21 08:26 Cyclobenzaprine HCl (Flexeril) 10 mg PRN Q8HRS PRN PO MUSCLE SPASMS 05/30/21 13:15 Docusate Sodium (Colace) 100 mg PRN DAILY PRN PO 1ST CHOICE CONSTIPATION 05/30/21 13:15 Duloxetine HCl (Cymbalta) 60 mg DAILY PO 05/31/21 09:00 06/02/21 08:26 Albuterol/ Ipratropium (Combivent Respimat 20-100 Mcg) 1 puff PRN TID PRN INH SHORTNESS OF BREATH 05/30/21 14:00 Memantine (Namenda) 5 mg BID PO 05/30/21 21:00 06/02/21 20:24 Ondansetron HCl (Zofran Odt) 4 mg PRN Q4HRS PRN PO 1ST CHOICE NAUSEA/VOMITING 05/30/21 13:15 Polyethylene Glycol (miraLAX) 17 gm PRN DAILY PRN PO 2ND CHOICE CONSTIPATION 05/30/21 13:15 Promethazine HCl (Phenergan Supp) 25 mg PRN Q4HRS PRN RC 2ND CHOICE NAUSEA 05/30/21 13:15 Alendronate Sodium (Fosamax) 70 mg WEEKLY@0600 PO 05/31/21 06:00 05/30/21 22:18 DC Albuterol Sulfate (Ventolin Hfa Inhaler) 1 puff RTQID INH 05/30/21 16:00 06/02/21 20:24 Calcium Carbonate/ Glycine (Tums) 500 mg TID PRN PRN PO HEARTBURN / GAS 05/30/21 14:00 Throat Lozenges (Cepacol Sore Throat Lozenge) 1 linnette PRN Q2HR PRN PO COUGH 05/30/21 14:00 Pregabalin (Lyrica) 100 mg BID PO 05/30/21 21:00 06/02/21 20:27 Alendronate Sodium (Fosamax) 70 mg Sa PO 05/31/21 06:00 05/31/21 05:57 Mirtazapine (Remeron) 7.5 mg QHS PO 05/31/21 21:00 06/02/21 20:24 Divalproex Sodium (Depakote Sprinkles) 125 mg 0900,1700 PO 06/01/21 17:00 06/02/21 17:27 I have reviewed the current psychotropics carefully including drug interactions. Risk benefit ratio favors no change other than as noted in my dictated progress note. Diagnosis: Problems: (1) Major neurocognitive disorder (2) Impulse control disorder, unspecified (3) Anxiety disorder, unspecified (4) Dementia, vascular, with depression (5) Dementia, vascular, with delusions (6) Dementia in Alzheimer's disease with depression (7) Dementia in Alzheimer's disease with delusions (8) Dementia of the Alzheimer's type with early onset with behavioral disturbance RENEE RAINEY MD Jun 02, 2021 22:06
--- NOTE | 2021-06-03 02:33 | NUR ---
Nursing Note The patient was located in the hallway outside his room for his assessment and medication pass. The patient was compliant with his medications and took them whole. The patient was irritable and resistive with HS cares and was given PRN Xanax per PRN order. The patient was alert to name only. The patient is currently sleeping in his room.
[2021-06-03 05:39] VITALS: BP 129/79
[2021-06-03] MEDS: CARBIDOPA/LEVODOPA 25/100MG TABLET PO SCH ×5 (06:13→20:44)
[2021-06-03] MEDS: DULoxetine HCL 60 MG CAPSULE.DR PO SCH (07:56)
[2021-06-03] MEDS: PREGABALIN 50 MG CAPSULE PO SCH ×2 (07:56→20:44)
[2021-06-03] MEDS: DIVALPROEX 125 MG CAP.SPRINK PO SCH ×2 (07:56→17:11)
[2021-06-03] MEDS: CHOLECALCIFEROL (VITAMIN D3) 1,000 UNIT TABLET PO SCH (07:56)
[2021-06-03] MEDS: MEMANTINE 5 MG TABLET. PO SCH ×2 (07:56→20:42)
[2021-06-03] MEDS: ALBUTEROL SULFATE 8GM INHALER. INH SCH ×4 (07:57→20:42)
[2021-06-03 15:46] VITALS: BP 103/67
[2021-06-03] MEDS: MIRTAZAPINE 7.5 MG TABLET. PO SCH (20:42)
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
--- NOTE | 2021-06-03 22:24 | PDOC ---
Exam Note: Hank Note: This note is a late entry for 06/01/2021overs elements not covered in my initial note. Subjective: The patient was seen on video telehealth services in the evening of 06/01/2021 with [facility] due to COVID-19 pandemic, discussed and reviewed the chart. The patient slept 5-1/4 hours previous night. He was somewhat irritable in the morning, tried to walk on his own, cursing at nursing staff. Last evening he slid himself to the floor. He is irritable, labile. Review of Systems: No CV, pulmonary, eye, ENT system symptoms on review. Reliability poor. Mental Status Exam: The patient is oriented to himself. Insight and judgment, recent and remote memory, attention and concentration, fund of knowledge is poor consistent with his diagnoses. Laboratory Data: Reviewed. Impression: Major neurocognitive disorder Alzheimer, vascular with delusion, depression, behavioral disturbance. Anxiety disorder unspecified. Impulse control disorder unspecified. Plan: We will start Depakote Sprinkle 125 mg 9 a.m. and 5 p.m. Check CBC, CMP, valproic acid level in 3 days. Continue rest unchanged. Assessment: Vital Signs/I&O: Vital Signs Date Time Temp Pulse Resp B/P (MAP) Pulse Ox O2 Delivery O2 Flow Rate FiO2 06/03/21 15:46 97.7 61 20 103/67 (79) 97 Room Air I & O 06/02/21 06/02/21 06/03/21 15:00 23:00 07:00 Intake Total 240 ml 480 ml Balance 240 ml 480 ml Current Medications: Meds: Current Medications Medications (Trade) Dose Ordered Sig/Altaf Route PRN Reason Start Time Stop Time Status Last Admin Dose Admin Acetaminophen (Tylenol) 650 mg PRN Q6HRS PRN PO MILD PAIN / TEMP > 100.3'F 05/30/21 13:00 Multi-Ingredient Ointment (Analgesic [place]) 1 abdi PRN QID PRN TP MUSCLE PAIN 05/30/21 13:00 Al Hydroxide/Mg Hydroxide (Mylanta Plus Xs) 15 ml PRN AFTMEALHC PRN PO DYSPEPSIA 05/30/21 13:00 Magnesium Hydroxide (Milk Of Magnesia) 2,400 mg PRN QHS PRN PO 3RD CHOICE CONSTIPATION 05/30/21 13:00 Alprazolam (Xanax) 0.5 mg PRN Q8HRS PRN PO ANXIETY 05/30/21 13:15 06/02/21 20:27 Carbidopa/Levodopa (Sinemet 25/100) 1 tab 5XDAY PO 05/30/21 14:00 06/03/21 20:44 Vitamin D (Vitamin D3) 2,000 unit DAILY PO 05/31/21 09:00 06/03/21 07:56 Cyclobenzaprine HCl (Flexeril) 10 mg PRN Q8HRS PRN PO MUSCLE SPASMS 05/30/21 13:15 Docusate Sodium (Colace) 100 mg PRN DAILY PRN PO 1ST CHOICE CONSTIPATION 05/30/21 13:15 Duloxetine HCl (Cymbalta) 60 mg DAILY PO 05/31/21 09:00 06/03/21 07:56 Albuterol/ Ipratropium (Combivent Respimat 20-100 Mcg) 1 puff PRN TID PRN INH SHORTNESS OF BREATH 05/30/21 14:00 Memantine (Namenda) 5 mg BID PO 05/30/21 21:00 06/03/21 23:30 06/03/21 20:42 Ondansetron HCl (Zofran Odt) 4 mg PRN Q4HRS PRN PO 1ST CHOICE NAUSEA/VOMITING 05/30/21 13:15 Polyethylene Glycol (miraLAX) 17 gm PRN DAILY PRN PO 2ND CHOICE CONSTIPATION 05/30/21 13:15 Promethazine HCl (Phenergan Supp) 25 mg PRN Q4HRS PRN RC 2ND CHOICE NAUSEA 05/30/21 13:15 Alendronate Sodium (Fosamax) 70 mg WEEKLY@0600 PO 05/31/21 06:00 05/30/21 22:18 DC Albuterol Sulfate (Ventolin Hfa Inhaler) 1 puff RTQID INH 05/30/21 16:00 06/03/21 20:42 Calcium Carbonate/ Glycine (Tums) 500 mg TID PRN PRN PO HEARTBURN / GAS 05/30/21 14:00 Throat Lozenges (Cepacol Sore Throat Lozenge) 1 linnette PRN Q2HR PRN PO COUGH 05/30/21 14:00 Pregabalin (Lyrica) 100 mg BID PO 05/30/21 21:00 06/03/21 20:44 Alendronate Sodium (Fosamax) 70 mg Sa PO 05/31/21 06:00 05/31/21 05:57 Mirtazapine (Remeron) 7.5 mg QHS PO 05/31/21 21:00 06/03/21 20:42 Divalproex Sodium (Depakote Sprinkles) 125 mg 0900,1700 PO 06/01/21 17:00 06/03/21 17:11 I have reviewed the current psychotropics carefully including drug interactions. Risk benefit ratio favors no change other than as noted in my dictated progress note. Diagnosis: Problems: (1) Major neurocognitive disorder (2) Impulse control disorder, unspecified (3) Anxiety disorder, unspecified (4) Dementia, vascular, with depression (5) Dementia, vascular, with delusions (6) Dementia in Alzheimer's disease with depression (7) Dementia in Alzheimer's disease with delusions (8) Dementia of the Alzheimer's type with early onset with behavioral disturbance RENEE RAINEY MD Jun 03, 2021 22:24
--- NOTE | 2021-06-03 22:41 | PDOC ---
Exam Note: Hank Note: This note is a late entry for 06/02/2021 covers elements not covered in my initial note. Subjective: The patient was reviewed at treatment team meeting individually in the morning on 06/02/2021 with Chio Anderson (social science professor), Zonia, activity therapy and Nohemi SAM, discussed and reviewed the chart. The patient slept 3-3/4 hours previous night. He takes mediations whole. Gait is unsteady. He was irritable previous evening and with his . Reportedly his appetite is fair. Later I got a message from Laine Sanchez that she had checked from the patients and he had been quite confused perhaps there will be little indication for maintaining the Namenda and we will stop it. Some of the psychosocial history information he gave was inaccurate when checked with his . Review of Systems: No CV, pulmonary, eye, ENT system symptoms on review. Reliability poor. Mental Status Exam: The patient is oriented to himself. Insight and judgment, recent and remote memory, attention and concentration, fund of knowledge is poor consistent with his diagnoses. Laboratory Data: Reviewed. Impression: Major neurocognitive disorder Alzheimer, vascular with delusion, depression, behavioral disturbance. Anxiety disorder unspecified. Impulse control disorder unspecified. Plan: Continue rest unchanged. Assessment: Vital Signs/I&O: Vital Signs Date Time Temp Pulse Resp B/P (MAP) Pulse Ox O2 Delivery O2 Flow Rate FiO2 06/03/21 15:46 97.7 61 20 103/67 (79) 97 Room Air I & O0 06/02/21 06/02/21 06/03/21 15:00 23:00 07:00 Intake Total 240 ml 480 ml Balance 240 ml 480 ml Current Medications: Meds: Current Medications Medications (Trade) Dose Ordered Sig/Altaf Route PRN Reason Start Time Stop Time Status Last Admin Dose Admin Acetaminophen (Tylenol) 650 mg PRN Q6HRS PRN PO MILD PAIN / TEMP > 100.3'F 05/30/21 13:00 Multi-Ingredient Ointment (Analgesic [place]) 1 abdi PRN QID PRN TP MUSCLE PAIN 05/30/21 13:00 Al Hydroxide/Mg Hydroxide (Mylanta Plus Xs) 15 ml PRN AFTMEALHC PRN PO DYSPEPSIA 05/30/21 13:00 Magnesium Hydroxide (Milk Of Magnesia) 2,400 mg PRN QHS PRN PO 3RD CHOICE CONSTIPATION 05/30/21 13:00 Alprazolam (Xanax) 0.5 mg PRN Q8HRS PRN PO ANXIETY 05/30/21 13:15 06/02/21 20:27 Carbidopa/Levodopa (Sinemet 25/100) 1 tab 5XDAY PO 05/30/21 14:00 06/03/21 20:44 Vitamin D (Vitamin D3) 2,000 unit DAILY PO 05/31/21 09:00 06/03/21 07:56 Cyclobenzaprine HCl (Flexeril) 10 mg PRN Q8HRS PRN PO MUSCLE SPASMS 05/30/21 13:15 Docusate Sodium (Colace) 100 mg PRN DAILY PRN PO 1ST CHOICE CONSTIPATION 05/30/21 13:15 Duloxetine HCl (Cymbalta) 60 mg DAILY PO 05/31/21 09:00 06/03/21 07:56 Albuterol/ Ipratropium (Combivent Respimat 20-100 Mcg) 1 puff PRN TID PRN INH SHORTNESS OF BREATH 05/30/21 14:00 Memantine (Namenda) 5 mg BID PO 05/30/21 21:00 06/03/21 23:30 06/03/21 20:42 Ondansetron HCl (Zofran Odt) 4 mg PRN Q4HRS PRN PO 1ST CHOICE NAUSEA/VOMITING 05/30/21 13:15 Polyethylene Glycol (miraLAX) 17 gm PRN DAILY PRN PO 2ND CHOICE CONSTIPATION 05/30/21 13:15 Promethazine HCl (Phenergan Supp) 25 mg PRN Q4HRS PRN RC 2ND CHOICE NAUSEA 05/30/21 13:15 Alendronate Sodium (Fosamax) 70 mg WEEKLY@0600 PO 05/31/21 06:00 05/30/21 22:18 DC Albuterol Sulfate (Ventolin Hfa Inhaler) 1 puff RTQID INH 05/30/21 16:00 06/03/21 20:42 Calcium Carbonate/ Glycine (Tums) 500 mg TID PRN PRN PO HEARTBURN / GAS 05/30/21 14:00 Throat Lozenges (Cepacol Sore Throat Lozenge) 1 linnette PRN Q2HR PRN PO COUGH 05/30/21 14:00 Pregabalin (Lyrica) 100 mg BID PO 05/30/21 21:00 06/03/21 20:44 Alendronate Sodium (Fosamax) 70 mg Sa PO 05/31/21 06:00 05/31/21 05:57 Mirtazapine (Remeron) 7.5 mg QHS PO 05/31/21 21:00 06/03/21 20:42 Divalproex Sodium (Depakote Sprinkles) 125 mg 0900,1700 PO 06/01/21 17:00 06/03/21 17:11 I have reviewed the current psychotropics carefully including drug interactions. Risk benefit ratio favors no change other than as noted in my dictated progress note. Diagnosis: Problems: (1) Major neurocognitive disorder (2) Impulse control disorder, unspecified (3) Anxiety disorder, unspecified (4) Dementia, vascular, with depression (5) Dementia, vascular, with delusions (6) Dementia in Alzheimer's disease with depression (7) Dementia in Alzheimer's disease with delusions (8) Dementia of the Alzheimer's type with early onset with behavioral disturbance RENEE RAINEY MD Jun 03, 2021 22:41
--- NOTE | 2021-06-03 22:41 | PDOC ---
Exam Note: Hank Note: Please also refer to the separate dictated note~for this date of service dictated separately.~Patient seen individually. Discussed the patient with Nursing staff reviewed the chart.~Reviewed interim history and current functioning. Reviewed vital signs,~Labs/ Radiology~and current medications noted below. Continue current treatment with the changes noted in the dictated addendum note Assessment: Vital Signs/I&O: Vital Signs Date Time Temp Pulse Resp B/P (MAP) Pulse Ox O2 Delivery O2 Flow Rate FiO2 06/03/21 15:46 97.7 61 20 103/67 (79) 97 Room Air I & O 06/02/21 06/02/21 06/03/21 15:00 23:00 07:00 Intake Total 240 ml 480 ml Balance 240 ml 480 ml Current Medications: Meds: Current Medications Medications (Trade) Dose Ordered Sig/Altaf Route PRN Reason Start Time Stop Time Status Last Admin Dose Admin Acetaminophen (Tylenol) 650 mg PRN Q6HRS PRN PO MILD PAIN / TEMP > 100.3'F 05/30/21 13:00 Multi-Ingredient Ointment (Analgesic [place]) 1 abdi PRN QID PRN TP MUSCLE PAIN 05/30/21 13:00 Al Hydroxide/Mg Hydroxide (Mylanta Plus Xs) 15 ml PRN AFTMEALHC PRN PO DYSPEPSIA 05/30/21 13:00 Magnesium Hydroxide (Milk Of Magnesia) 2,400 mg PRN QHS PRN PO 3RD CHOICE CONSTIPATION 05/30/21 13:00 Alprazolam (Xanax) 0.5 mg PRN Q8HRS PRN PO ANXIETY 05/30/21 13:15 06/02/21 20:27 Carbidopa/Levodopa (Sinemet 25/100) 1 tab 5XDAY PO 05/30/21 14:00 06/03/21 20:44 Vitamin D (Vitamin D3) 2,000 unit DAILY PO 05/31/21 09:00 06/03/21 07:56 Cyclobenzaprine HCl (Flexeril) 10 mg PRN Q8HRS PRN PO MUSCLE SPASMS 05/30/21 13:15 Docusate Sodium (Colace) 100 mg PRN DAILY PRN PO 1ST CHOICE CONSTIPATION 05/30/21 13:15 Duloxetine HCl (Cymbalta) 60 mg DAILY PO 05/31/21 09:00 06/03/21 07:56 Albuterol/ Ipratropium (Combivent Respimat 20-100 Mcg) 1 puff PRN TID PRN INH SHORTNESS OF BREATH 05/30/21 14:00 Memantine (Namenda) 5 mg BID PO 05/30/21 21:00 06/03/21 23:30 06/03/21 20:42 Ondansetron HCl (Zofran Odt) 4 mg PRN Q4HRS PRN PO 1ST CHOICE NAUSEA/VOMITING 05/30/21 13:15 Polyethylene Glycol (miraLAX) 17 gm PRN DAILY PRN PO 2ND CHOICE CONSTIPATION 05/30/21 13:15 Promethazine HCl (Phenergan Supp) 25 mg PRN Q4HRS PRN RC 2ND CHOICE NAUSEA 05/30/21 13:15 Alendronate Sodium (Fosamax) 70 mg WEEKLY@0600 PO 05/31/21 06:00 05/30/21 22:18 DC Albuterol Sulfate (Ventolin Hfa Inhaler) 1 puff RTQID INH 05/30/21 16:00 06/03/21 20:42 Calcium Carbonate/ Glycine (Tums) 500 mg TID PRN PRN PO HEARTBURN / GAS 05/30/21 14:00 Throat Lozenges (Cepacol Sore Throat Lozenge) 1 linnette PRN Q2HR PRN PO COUGH 05/30/21 14:00 Pregabalin (Lyrica) 100 mg BID PO 05/30/21 21:00 06/03/21 20:44 Alendronate Sodium (Fosamax) 70 mg Sa PO 05/31/21 06:00 05/31/21 05:57 Mirtazapine (Remeron) 7.5 mg QHS PO 05/31/21 21:00 06/03/21 20:42 Divalproex Sodium (Depakote Sprinkles) 125 mg 0900,1700 PO 06/01/21 17:00 06/03/21 17:11 I have reviewed the current psychotropics carefully including drug interactions. Risk benefit ratio favors no change other than as noted in my dictated progress note. Diagnosis: Problems: (1) Major neurocognitive disorder (2) Impulse control disorder, unspecified (3) Anxiety disorder, unspecified (4) Dementia, vascular, with depression (5) Dementia, vascular, with delusions (6) Dementia in Alzheimer's disease with depression (7) Dementia in Alzheimer's disease with delusions (8) Dementia of the Alzheimer's type with early onset with behavioral disturbance RENEE RAINEY MD Jun 03, 2021 22:41
--- NOTE | 2021-06-04 00:42 | NUR ---
Nursing Note The patient was located in the hallway outside his room for his assessment and medication pass. The patient was compliant with his medications and took them whole. The patient was irritable with HS cares and did better with female care givers than male. The patient was alert to name only. The patient is currently sleeping in his room.
[2021-06-04 05:39] VITALS: BP 116/76
[2021-06-04] MEDS: CARBIDOPA/LEVODOPA 25/100MG TABLET PO SCH ×5 (05:56→20:17)
--- NOTE | 2021-06-04 06:42 | PDOC ---
Exam Note: Hank Note: This note is a late entry for 06/03/2021 covers elements not covered in my initial note. Subjective: The patient was seen face to face in the evening of 06/03/2021 with Nohemi SAM, discussed and reviewed the chart. The patient slept 6-1/4 hours previous night. Previous evening he was resistive with cares, quite disorganized, wandering the hallways as I met with him this evening but not aggressive. Review of Systems: No CV, pulmonary, eye, ENT system symptoms on review. Reliability poor. Mental Status Exam: The patient is oriented to himself. Insight and judgment, recent and remote memory, attention and concentration, fund of knowledge is poor consistent with his diagnoses. Laboratory Data: Reviewed. Impression: Major neurocognitive disorder Alzheimer, vascular with delusion, depression, behavioral disturbance. Anxiety disorder unspecified. Impulse control disorder unspecified. Plan: Stop the Namenda since it has probably little benefit at this stage of his dementia. Continue current psychotropics. Check labs and valproic acid level tomorrow. Adjust the Depakote thereafter. Make further changes in his psychotropics depending on the above. Assessment: Vital Signs/I&O: Vital Signs Date Time Temp Pulse Resp B/P (MAP) Pulse Ox O2 Delivery O2 Flow Rate FiO2 06/04/21 05:39 97.6 80 16 116/76 (89) 91 Room Air I & O 06/03/21 06/03/21 06/04/21 15:00 23:00 07:00 Intake Total 480 ml 480 ml Balance 480 ml 480 ml Current Medications: Meds: Current Medications Medications (Trade) Dose Ordered Sig/Altaf Route PRN Reason Start Time Stop Time Status Last Admin Dose Admin Acetaminophen (Tylenol) 650 mg PRN Q6HRS PRN PO MILD PAIN / TEMP > 100.3'F 05/30/21 13:00 Multi-Ingredient Ointment (Analgesic [place]) 1 abdi PRN QID PRN TP MUSCLE PAIN 05/30/21 13:00 Al Hydroxide/Mg Hydroxide (Mylanta Plus Xs) 15 ml PRN AFTMEALHC PRN PO DYSPEPSIA 05/30/21 13:00 Magnesium Hydroxide (Milk Of Magnesia) 2,400 mg PRN QHS PRN PO 3RD CHOICE CONSTIPATION 05/30/21 13:00 Alprazolam (Xanax) 0.5 mg PRN Q8HRS PRN PO ANXIETY 05/30/21 13:15 06/02/21 20:27 Carbidopa/Levodopa (Sinemet 25/100) 1 tab 5XDAY PO 05/30/21 14:00 06/04/21 05:56 Vitamin D (Vitamin D3) 2,000 unit DAILY PO 05/31/21 09:00 06/03/21 07:56 Cyclobenzaprine HCl (Flexeril) 10 mg PRN Q8HRS PRN PO MUSCLE SPASMS 05/30/21 13:15 Docusate Sodium (Colace) 100 mg PRN DAILY PRN PO 1ST CHOICE CONSTIPATION 05/30/21 13:15 Duloxetine HCl (Cymbalta) 60 mg DAILY PO 05/31/21 09:00 06/03/21 07:56 Albuterol/ Ipratropium (Combivent Respimat 20-100 Mcg) 1 puff PRN TID PRN INH SHORTNESS OF BREATH 05/30/21 14:00 Memantine (Namenda) 5 mg BID PO 05/30/21 21:00 06/03/21 23:30 DC 06/03/21 20:42 Ondansetron HCl (Zofran Odt) 4 mg PRN Q4HRS PRN PO 1ST CHOICE NAUSEA/VOMITING 05/30/21 13:15 Polyethylene Glycol (miraLAX) 17 gm PRN DAILY PRN PO 2ND CHOICE CONSTIPATION 05/30/21 13:15 Promethazine HCl (Phenergan Supp) 25 mg PRN Q4HRS PRN RC 2ND CHOICE NAUSEA 05/30/21 13:15 Alendronate Sodium (Fosamax) 70 mg WEEKLY@0600 PO 05/31/21 06:00 05/30/21 22:18 DC Albuterol Sulfate (Ventolin Hfa Inhaler) 1 puff RTQID INH 05/30/21 16:00 06/03/21 20:42 Calcium Carbonate/ Glycine (Tums) 500 mg TID PRN PRN PO HEARTBURN / GAS 05/30/21 14:00 Throat Lozenges (Cepacol Sore Throat Lozenge) 1 linentte PRN Q2HR PRN PO COUGH 05/30/21 14:00 Pregabalin (Lyrica) 100 mg BID PO 05/30/21 21:00 06/03/21 20:44 Alendronate Sodium (Fosamax) 70 mg Sa PO 05/31/21 06:00 05/31/21 05:57 Mirtazapine (Remeron) 7.5 mg QHS PO 05/31/21 21:00 06/03/21 20:42 Divalproex Sodium (Depakote Sprinkles) 125 mg 0900,1700 PO 06/01/21 17:00 06/03/21 17:11 I have reviewed the current psychotropics carefully including drug interactions. Risk benefit ratio favors no change other than as noted in my dictated progress note. Diagnosis: Problems: (1) Major neurocognitive disorder (2) Impulse control disorder, unspecified (3) Anxiety disorder, unspecified (4) Dementia, vascular, with depression (5) Dementia, vascular, with delusions (6) Dementia in Alzheimer's disease with depression (7) Dementia in Alzheimer's disease with delusions (8) Dementia of the Alzheimer's type with early onset with behavioral disturbance RENEE RAINEY MD Jun 04, 2021 06:42
[2021-06-04 07:56] LABS: BASO # 0.1 x10^3/uL (0.0-0.2); BASO % 1 % (0-3); EOS # 0.3 x10^3/uL (0.0-0.7); EOS % 5 % (0-3); HEMATOCRIT 42.6 % (39.0-53.0); HEMOGLOBIN 13.9 g/dL (13.0-17.5); LYMPH # 1.3 x10^3/uL (1.0-4.8); LYMPH % 20 % (24-48); MEAN CORPUSCULAR HEMOGLOBIN 30 pg (25-35); MEAN CORPUSCULAR HGB CONC 33 g/dL (31-37); MEAN CORPUSCULAR VOLUME 91 fL (79-100); MONO # 0.7 x10^3/uL (0.0-1.1); MONO % 11 % (0-9); NEUT % 63 % (31-73); PLATELET COUNT 118 x10^3/uL (140-400); RED CELL DISTRIBUTION WIDTH 14.2 % (11.5-14.5); WHITE BLOOD COUNT 6.3 x10^3/uL (4.0-11.0)
[2021-06-04] MEDS: CHOLECALCIFEROL (VITAMIN D3) 1,000 UNIT TABLET PO SCH (08:00)
[2021-06-04] MEDS: DULoxetine HCL 60 MG CAPSULE.DR PO SCH (08:00)
[2021-06-04] MEDS: ALBUTEROL SULFATE 8GM INHALER. INH SCH ×4 (08:01→20:16)
[2021-06-04] MEDS: DIVALPROEX 125 MG CAP.SPRINK PO SCH ×2 (08:01→17:04)
[2021-06-04] MEDS: PREGABALIN 50 MG CAPSULE PO SCH ×2 (08:03→20:17)
[2021-06-04 08:13] LABS: ALK PHOS 82 U/L (46-116); ALT (SGPT) 6 U/L (16-63); ANION GAP 6 (6-14); AST (SGOT) 13 U/L (15-37); BLOOD UREA NITROGEN 15 mg/dL (8-26); BUN/CREATININE RATIO 17 (6-20); CALCIUM 8.3 mg/dL (8.5-10.1); CARBON DIOXIDE 30 mmol/L (21-32); CHLORIDE 110 mmol/L (98-107); CREATININE 0.9 mg/dL (0.7-1.3); GFR 82.9; GLUCOSE 86 mg/dL (70-99); POTASSIUM 3.8 mmol/L (3.5-5.1); SODIUM 146 mmol/L (136-145); TOTAL BILIRUBIN 1.1 mg/dL (0.2-1.0); TOTAL PROTEIN 6.1 g/dL (6.4-8.2)
[2021-06-04 08:14] LABS: VAL ACID 15 mcg/mL (50-100)
--- NOTE | 2021-06-04 10:28 | NUR ---
Nursing note: Pt laying in his bed at time of AM med pass and assessment. He is pleasant, med compliant and cooperative. Pt does not appear to be in any pain or having hallucinations. He continues to be resting quietly in his bed. Will continue to monitor.
[2021-06-04] MEDS: ALPRAZolam 0.5 MG TABLET PO PRN (13:23)
[2021-06-04 15:43] VITALS: BP 115/76
--- NOTE | 2021-06-04 17:34 | NUR ---
Nursing note: Pt obsessing over his "money" during lunch. Staff attempted to redirect him and he began to swing at staff. Staff x3 assist to get pt back into his room where he was allowed to calm on his own. PRN given in preparation for shower. Will continue to monitor.
[2021-06-04] MEDS: MIRTAZAPINE 7.5 MG TABLET. PO SCH (20:17)
--- NOTE | 2021-06-04 22:06 | PDOC ---
Exam Note: Hank Note: Please also refer to the separate dictated note~for this date of service dictated separately.~Patient seen individually. Discussed the patient with Nursing staff reviewed the chart.~Reviewed interim history and current functioning. Reviewed vital signs,~Labs/ Radiology~and current medications noted below. Continue current treatment with the changes noted in the dictated addendum note Assessment: Vital Signs/I&O: Vital Signs Date Time Temp Pulse Resp B/P (MAP) Pulse Ox O2 Delivery O2 Flow Rate FiO2 06/04/21 15:43 96.9 86 18 115/76 (89) 96 06/04/21 05:39 Room Air I & O 06/03/21 06/03/21 06/04/21 15:00 23:00 07:00 Intake Total 480 ml 480 ml Balance 480 ml 480 ml Labs: Laboratory Tests Test 06/04/21 07:40 White Blood Count 6.3 x10^3/uL (4.0-11.0) Red Blood Count 4.70 x10^6/uL (4.30-5.70) Hemoglobin 13.9 g/dL (13.0-17.5) Hematocrit 42.6 % (39.0-53.0) Mean Corpuscular Volume 91 fL (79-100) Mean Corpuscular Hemoglobin 30 pg (25-35) Mean Corpuscular Hemoglobin Concent 33 g/dL (31-37) Red Cell Distribution Width 14.2 % (11.5-14.5) Platelet Count 118 x10^3/uL (140-400) L Neutrophils (%) (Auto) 63 % (31-73) Lymphocytes (%) (Auto) 20 % (24-48) L Monocytes (%) (Auto) 11 % (0-9) H Eosinophils (%) (Auto) 5 % (0-3) H Basophils (%) (Auto) 1 % (0-3) Neutrophils # (Auto) 4.0 x10^3uL (1.8-7.7) Lymphocytes # (Auto) 1.3 x10^3/uL (1.0-4.8) Monocytes # (Auto) 0.7 x10^3/uL (0.0-1.1) Eosinophils # (Auto) 0.3 x10^3/uL (0.0-0.7) Basophils # (Auto) 0.1 x10^3/uL (0.0-0.2) Sodium Level 146 mmol/L (136-145) H Potassium Level 3.8 mmol/L (3.5-5.1) Chloride Level 110 mmol/L (98-107) H Carbon Dioxide Level 30 mmol/L (21-32) Anion Gap 6 (6-14) Blood Urea Nitrogen 15 mg/dL (8-26) Creatinine 0.9 mg/dL (0.7-1.3) Estimated GFR (Cockcroft-Gault) 82.9 BUN/Creatinine Ratio 17 (6-20) Glucose Level 86 mg/dL (70-99) Calcium Level 8.3 mg/dL (8.5-10.1) L Total Bilirubin 1.1 mg/dL (0.2-1.0) H Aspartate Amino Transferase (AST) 13 U/L (15-37) L Alanine Aminotransferase (ALT) 6 U/L (16-63) L Alkaline Phosphatase 82 U/L (46-116) Total Protein 6.1 g/dL (6.4-8.2) L Albumin 3.0 g/dL (3.4-5.0) L Albumin/Globulin Ratio 1.0 (1.0-1.7) Valproic Acid Level 15 mcg/mL (50-100) L Valproic Acid Last Dose Date 06/03/21 Valproic Acid Last Dose Time 1700 Current Medications: Meds: Laboratory Tests Test 06/04/21 07:40 White Blood Count 6.3 x10^3/uL Red Blood Count 4.70 x10^6/uL Hemoglobin 13.9 g/dL Hematocrit 42.6 % Mean Corpuscular Volume 91 fL Mean Corpuscular Hemoglobin 30 pg Mean Corpuscular Hemoglobin Concent 33 g/dL Red Cell Distribution Width 14.2 % Platelet Count 118 x10^3/uL Neutrophils (%) (Auto) 63 % Lymphocytes (%) (Auto) 20 % Monocytes (%) (Auto) 11 % Eosinophils (%) (Auto) 5 % Basophils (%) (Auto) 1 % Neutrophils # (Auto) 4.0 x10^3uL Lymphocytes # (Auto) 1.3 x10^3/uL Monocytes # (Auto) 0.7 x10^3/uL Eosinophils # (Auto) 0.3 x10^3/uL Basophils # (Auto) 0.1 x10^3/uL Sodium Level 146 mmol/L Potassium Level 3.8 mmol/L Chloride Level 110 mmol/L Carbon Dioxide Level 30 mmol/L Anion Gap 6 Blood Urea Nitrogen 15 mg/dL Creatinine 0.9 mg/dL Estimated GFR (Cockcroft-Gault) 82.9 BUN/Creatinine Ratio 17 Glucose Level 86 mg/dL Calcium Level 8.3 mg/dL Total Bilirubin 1.1 mg/dL Aspartate Amino Transf (AST/SGOT) 13 U/L Alanine Aminotransferase (ALT/SGPT) 6 U/L Alkaline Phosphatase 82 U/L Total Protein 6.1 g/dL Albumin 3.0 g/dL Albumin/Globulin Ratio 1.0 Valproic Acid (Depakene) Level 15 mcg/mL Valproic Acid Last Dose Date 06/03/21 Valproic Acid Last Dose Time 1700 Current Medications Medications (Trade) Dose Ordered Sig/Altaf Route PRN Reason Start Time Stop Time Status Last Admin Dose Admin Acetaminophen (Tylenol) 650 mg PRN Q6HRS PRN PO MILD PAIN / TEMP > 100.3'F 05/30/21 13:00 Multi-Ingredient Ointment (Analgesic [place]) 1 abdi PRN QID PRN TP MUSCLE PAIN 05/30/21 13:00 Al Hydroxide/Mg Hydroxide (Mylanta Plus Xs) 15 ml PRN AFTMEALHC PRN PO DYSPEPSIA 05/30/21 13:00 Magnesium Hydroxide (Milk Of Magnesia) 2,400 mg PRN QHS PRN PO 3RD CHOICE CONSTIPATION 05/30/21 13:00 Alprazolam (Xanax) 0.5 mg PRN Q8HRS PRN PO ANXIETY 05/30/21 13:15 06/04/21 16:24 DC 06/04/21 13:23 Carbidopa/Levodopa (Sinemet 25/100) 1 tab 5XDAY PO 05/30/21 14:00 06/04/21 20:17 Vitamin D (Vitamin D3) 2,000 unit DAILY PO 05/31/21 09:00 06/04/21 08:00 Cyclobenzaprine HCl (Flexeril) 10 mg PRN Q8HRS PRN PO MUSCLE SPASMS 05/30/21 13:15 Docusate Sodium (Colace) 100 mg PRN DAILY PRN PO 1ST CHOICE CONSTIPATION 05/30/21 13:15 Duloxetine HCl (Cymbalta) 60 mg DAILY PO 05/31/21 09:00 06/04/21 08:00 Albuterol/ Ipratropium (Combivent Respimat 20-100 Mcg) 1 puff PRN TID PRN INH SHORTNESS OF BREATH 05/30/21 14:00 Memantine (Namenda) 5 mg BID PO 05/30/21 21:00 06/03/21 23:30 DC 06/03/21 20:42 Ondansetron HCl (Zofran Odt) 4 mg PRN Q4HRS PRN PO 1ST CHOICE NAUSEA/VOMITING 05/30/21 13:15 Polyethylene Glycol (miraLAX) 17 gm PRN DAILY PRN PO 2ND CHOICE CONSTIPATION 05/30/21 13:15 Promethazine HCl (Phenergan Supp) 25 mg PRN Q4HRS PRN RC 2ND CHOICE NAUSEA 05/30/21 13:15 Alendronate Sodium (Fosamax) 70 mg WEEKLY@0600 PO 05/31/21 06:00 05/30/21 22:18 DC Albuterol Sulfate (Ventolin Hfa Inhaler) 1 puff RTQID INH 05/30/21 16:00 06/04/21 20:16 Calcium Carbonate/ Glycine (Tums) 500 mg TID PRN PRN PO HEARTBURN / GAS 05/30/21 14:00 Throat Lozenges (Cepacol Sore Throat Lozenge) 1 linnette PRN Q2HR PRN PO COUGH 05/30/21 14:00 Pregabalin (Lyrica) 100 mg BID PO 05/30/21 21:00 06/04/21 20:17 Alendronate Sodium (Fosamax) 70 mg Sa PO 05/31/21 06:00 05/31/21 05:57 Mirtazapine (Remeron) 7.5 mg QHS PO 05/31/21 21:00 06/04/21 20:17 Divalproex Sodium (Depakote Sprinkles) 125 mg 0900,1700 PO 06/01/21 17:00 06/04/21 16:24 DC 06/04/21 08:01 Divalproex Sodium (Depakote Sprinkles) 250 mg 0900,1700 PO 06/04/21 17:00 06/04/21 17:04 Olanzapine (ZyPREXA ZYDIS) 2.5 mg PRN Q2HR PRN PO PSYCHOSIS 06/04/21 16:30 Current Medications Medications (Trade) Dose Ordered Sig/Altaf Route PRN Reason Start Time Stop Time Status Last Admin Dose Admin Divalproex Sodium (Depakote Sprinkles) 250 mg 0900,1700 PO 06/04/21 17:00 06/04/21 17:04 I have reviewed the current psychotropics carefully including drug interactions. Risk benefit ratio favors no change other than as noted in my dictated progress note. Diagnosis: Problems: (1) Major neurocognitive disorder (2) Impulse control disorder, unspecified (3) Anxiety disorder, unspecified (4) Dementia, vascular, with depression (5) Dementia, vascular, with delusions (6) Dementia in Alzheimer's disease with depression (7) Dementia in Alzheimer's disease with delusions (8) Dementia of the Alzheimer's type with early onset with behavioral dist RENEE Dvoer MD Jun 04, 2021 22:06
[2021-06-05 05:50] VITALS: BP 122/85
[2021-06-05] MEDS: CARBIDOPA/LEVODOPA 25/100MG TABLET PO SCH ×5 (06:05→19:50)
[2021-06-05] MEDS: ALBUTEROL SULFATE 8GM INHALER. INH SCH ×4 (08:00→19:49)
[2021-06-05] MEDS: DULoxetine HCL 60 MG CAPSULE.DR PO SCH (08:14)
[2021-06-05] MEDS: CHOLECALCIFEROL (VITAMIN D3) 1,000 UNIT TABLET PO SCH (08:14)
[2021-06-05] MEDS: DIVALPROEX 125 MG CAP.SPRINK PO SCH ×2 (08:14→16:21)
[2021-06-05] MEDS: PREGABALIN 50 MG CAPSULE PO SCH ×2 (08:16→19:51)
--- NOTE | 2021-06-05 10:45 | NUR ---
Pt was sitting outside of his room during assessment and medication administration. He was compliant with medications crushed and mixed into pudding. Absent of SI/HI/VH/AH at this time. When asked if he was in pain he replied, "yes," when asked where he was in pain he stated "[employer]." PAINAD score is 0. His interactions with others have been infrequent, but appropriate when they occur. Plan of care continues, will pass to next shift.
[2021-06-05 15:24] VITALS: BP 104/71
[2021-06-05] MEDS: MIRTAZAPINE 7.5 MG TABLET. PO SCH (19:50)
--- NOTE | 2021-06-05 21:05 | NUR ---
Patient was sitting in the west hallway with peers, he was not interacting. Patient not answering assessment questions, he was just looking at the floor. Patient compliant with HS medications given crushed in vanilla pudding. Patient allowed PARATRANSIT OPERATOR's to take him to his room, he was cooperative and calm. Patient has been restless in bed and got out of the bed, he is currently sitting on the edge of his bed. Will continue to monitor.
--- NOTE | 2021-06-05 22:13 | PDOC ---
Exam Note: Hank Note: Please also refer to the separate dictated note~for this date of service dictated separately.~Patient seen individually. Discussed the patient with Nursing staff reviewed the chart.~Reviewed interim history and current functioning. Reviewed vital signs,~Labs/ Radiology~and current medications noted below. Continue current treatment with the changes noted in the dictated addendum note Assessment: Vital Signs/I&O: Vital Signs Date Time Temp Pulse Resp B/P (MAP) Pulse Ox O2 Delivery O2 Flow Rate FiO2 06/05/21 15:24 97.6 89 18 104/71 (82) 98 Room Air I & O 06/04/21 06/04/21 06/05/21 14:59 22:59 06:59 Intake Total 720 ml 370 ml Balance 720 ml 370 ml Current Medications: Meds: Current Medications Medications (Trade) Dose Ordered Sig/Altaf Route PRN Reason Start Time Stop Time Status Last Admin Dose Admin Acetaminophen (Tylenol) 650 mg PRN Q6HRS PRN PO MILD PAIN / TEMP > 100.3'F 05/30/21 13:00 Multi-Ingredient Ointment (Analgesic [place]) 1 abdi PRN QID PRN TP MUSCLE PAIN 05/30/21 13:00 Al Hydroxide/Mg Hydroxide (Mylanta Plus Xs) 15 ml PRN AFTMEALHC PRN PO DYSPEPSIA 05/30/21 13:00 Magnesium Hydroxide (Milk Of Magnesia) 2,400 mg PRN QHS PRN PO 3RD CHOICE CONSTIPATION 05/30/21 13:00 Alprazolam (Xanax) 0.5 mg PRN Q8HRS PRN PO ANXIETY 05/30/21 13:15 06/04/21 16:24 DC 06/04/21 13:23 Carbidopa/Levodopa (Sinemet 25/100) 1 tab 5XDAY PO 05/30/21 14:00 06/05/21 19:50 Vitamin D (Vitamin D3) 2,000 unit DAILY PO 05/31/21 09:00 06/05/21 08:14 Cyclobenzaprine HCl (Flexeril) 10 mg PRN Q8HRS PRN PO MUSCLE SPASMS 05/30/21 13:15 Docusate Sodium (Colace) 100 mg PRN DAILY PRN PO 1ST CHOICE CONSTIPATION 05/30/21 13:15 Duloxetine HCl (Cymbalta) 60 mg DAILY PO 05/31/21 09:00 06/05/21 08:14 Albuterol/ Ipratropium (Combivent Respimat 20-100 Mcg) 1 puff PRN TID PRN INH SHORTNESS OF BREATH 05/30/21 14:00 Memantine (Namenda) 5 mg BID PO 05/30/21 21:00 06/03/21 23:30 DC 06/03/21 20:42 Ondansetron HCl (Zofran Odt) 4 mg PRN Q4HRS PRN PO 1ST CHOICE NAUSEA/VOMITING 05/30/21 13:15 Polyethylene Glycol (miraLAX) 17 gm PRN DAILY PRN PO 2ND CHOICE CONSTIPATION 05/30/21 13:15 Promethazine HCl (Phenergan Supp) 25 mg PRN Q4HRS PRN RC 2ND CHOICE NAUSEA 05/30/21 13:15 Alendronate Sodium (Fosamax) 70 mg WEEKLY@0600 PO 05/31/21 06:00 05/30/21 22:18 DC Albuterol Sulfate (Ventolin Hfa Inhaler) 1 puff RTQID INH 05/30/21 16:00 06/05/21 19:49 Calcium Carbonate/ Glycine (Tums) 500 mg TID PRN PRN PO HEARTBURN / GAS 05/30/21 14:00 Throat Lozenges (Cepacol Sore Throat Lozenge) 1 linnette PRN Q2HR PRN PO COUGH 05/30/21 14:00 Pregabalin (Lyrica) 100 mg BID PO 05/30/21 21:00 06/05/21 19:51 Alendronate Sodium (Fosamax) 70 mg Sa PO 05/31/21 06:00 05/31/21 05:57 Mirtazapine (Remeron) 7.5 mg QHS PO 05/31/21 21:00 06/05/21 19:50 Divalproex Sodium (Depakote Sprinkles) 125 mg 0900,1700 PO 06/01/21 17:00 06/04/21 16:24 DC 06/04/21 08:01 Divalproex Sodium (Depakote Sprinkles) 250 mg 0900,1700 PO 06/04/21 17:00 06/05/21 16:21 Olanzapine (ZyPREXA ZYDIS) 2.5 mg PRN Q2HR PRN PO PSYCHOSIS 06/04/21 16:30 I have reviewed the current psychotropics carefully including drug interactions. Risk benefit ratio favors no change other than as noted in my dictated progress note. Diagnosis: Problems: (1) Major neurocognitive disorder (2) Impulse control disorder, unspecified (3) Anxiety disorder, unspecified (4) Dementia, vascular, with depression (5) Dementia, vascular, with delusions (6) Dementia in Alzheimer's disease with depression (7) Dementia in Alzheimer's disease with delusions (8) Dementia of the Alzheimer's type with early onset with behavioral disturbance RENEE RAINEY MD Jun 05, 2021 22:13
[2021-06-06 06:08] VITALS: BP 136/81
[2021-06-06] MEDS: CARBIDOPA/LEVODOPA 25/100MG TABLET PO SCH ×5 (06:22→19:49)
--- NOTE | 2021-06-06 06:46 | PDOC ---
Exam Note: Hank Note: This note is a late entry for 06/04/2021 covers elements not covered in my initial note. Subjective: The patient was seen face to face in the evening of 06/04/2021 with Tiff SAM, discussed and reviewed the chart. The patient slept 6 hours previous night. He did well in the morning around 12.30 pm. He was obsessive regarding money, felt someone had stolen from him, was trying to punch a nursing aid. He had to be taken back to his room, then was calmer. Valproic acid level is 15. We will increase the Depakote Sprinkle from 125 mg twice a day to 250 mg twice a day. Check CBC, CMP, valproic acid level in 3 days and also change the Xanax to Zyprexa 2.5 mg q.2h. p.r.n. psychosis and agitation, maximum 10 mg in 24 hours. Review of Systems: No CV, pulmonary, eye, ENT system symptoms on review. Reliability poor. Mental Status Exam: The patient is oriented to himself. Insight and judgment, recent and remote memory, attention and concentration, fund of knowledge is poor consistent with his diagnoses. Laboratory Data: Reviewed. Impression: Major neurocognitive disorder Alzheimer, vascular with delusion, depression, behavioral disturbance. Anxiety disorder unspecified. Impulse cont rol disorder unspecified. Plan: Continue current psychotropics. Increase Depakote to reach therapeutic level. Use Zyprexa p.r.n. in place of Xanax. Namenda has been stopped since it probably has little beneficial effect at this stage of his dementia. Maintain Remeron and he is also on Cymbalta 60 mg a day. He remains on Sinemet as well. Adjust further as clinically indicated. Assessment: Vital Signs/I&O: Vital Signs Date Time Temp Pulse Resp B/P (MAP) Pulse Ox O2 Delivery O2 Flow Rate FiO2 06/06/21 06:08 97.8 72 14 136/81 (99) 98 06/05/21 15:24 Room Air I & O 06/05/21 06/05/21 06/06/21 15:00 23:00 07:00 Intake Total 480 ml 360 ml Balance 480 ml 360 ml Current Medications: Meds: Current Medications Medications (Trade) Dose Ordered Sig/Altaf Route PRN Reason Start Time Stop Time Status Last Admin Dose Admin Acetaminophen (Tylenol) 650 mg PRN Q6HRS PRN PO MILD PAIN / TEMP > 100.3'F 05/30/21 13:00 Multi-Ingredient Ointment (Analgesic [place]) 1 abdi PRN QID PRN TP MUSCLE PAIN 05/30/21 13:00 Al Hydroxide/Mg Hydroxide (Mylanta Plus Xs) 15 ml PRN AFTMEALHC PRN PO DYSPEPSIA 05/30/21 13:00 Magnesium Hydroxide (Milk Of Magnesia) 2,400 mg PRN QHS PRN PO 3RD CHOICE CONSTIPATION 05/30/21 13:00 Alprazolam (Xanax) 0.5 mg PRN Q8HRS PRN PO ANXIETY 05/30/21 13:15 06/04/21 16:24 DC 06/04/21 13:23 Carbidopa/Levodopa (Sinemet 25/100) 1 tab 5XDAY PO 05/30/21 14:00 06/06/21 06:22 Vitamin D (Vitamin D3) 2,000 unit DAILY PO 05/31/21 09:00 06/05/21 08:14 Cyclobenzaprine HCl (Flexeril) 10 mg PRN Q8HRS PRN PO MUSCLE SPASMS 05/30/21 13:15 Docusate Sodium (Colace) 100 mg PRN DAILY PRN PO 1ST CHOICE CONSTIPATION 05/30/21 13:15 Duloxetine HCl (Cymbalta) 60 mg DAILY PO 05/31/21 09:00 06/05/21 08:14 Albuterol/ Ipratropium (Combivent Respimat 20-100 Mcg) 1 puff PRN TID PRN INH SHORTNESS OF BREATH 05/30/21 14:00 Memantine (Namenda) 5 mg BID PO 05/30/21 21:00 06/03/21 23:30 DC 06/03/21 20:42 Ondansetron HCl (Zofran Odt) 4 mg PRN Q4HRS PRN PO 1ST CHOICE NAUSEA/VOMITING 05/30/21 13:15 Polyethylene Glycol (miraLAX) 17 gm PRN DAILY PRN PO 2ND CHOICE CONSTIPATION 05/30/21 13:15 Promethazine HCl (Phenergan Supp) 25 mg PRN Q4HRS PRN RC 2ND CHOICE NAUSEA 05/30/21 13:15 Alendronate Sodium (Fosamax) 70 mg WEEKLY@0600 PO 05/31/21 06:00 05/30/21 22:18 DC Albuterol Sulfate (Ventolin Hfa Inhaler) 1 puff RTQID INH 05/30/21 16:00 06/05/21 19:49 Calcium Carbonate/ Glycine (Tums) 500 mg TID PRN PRN PO HEARTBURN / GAS 05/30/21 14:00 Throat Lozenges (Cepacol Sore Throat Lozenge) 1 linnette PRN Q2HR PRN PO COUGH 05/30/21 14:00 Pregabalin (Lyrica) 100 mg BID PO 05/30/21 21:00 06/05/21 19:51 Alendronate Sodium (Fosamax) 70 mg Sa PO 05/31/21 06:00 05/31/21 05:57 Mirtazapine (Remeron) 7.5 mg QHS PO 05/31/21 21:00 06/05/21 19:50 Divalproex Sodium (Depakote Sprinkles) 125 mg 0900,1700 PO 06/01/21 17:00 06/04/21 16:24 DC 06/04/21 08:01 Divalproex Sodium (Depakote Sprinkles) 250 mg 0900,1700 PO 06/04/21 17:00 06/05/21 16:21 Olanzapine (ZyPREXA ZYDIS) 2.5 mg PRN Q2HR PRN PO PSYCHOSIS 06/04/21 16:30 I have reviewed the current psychotropics carefully including drug interactions. Risk benefit ratio favors no change other than as noted in my dictated progress note. Diagnosis: Problems: (1) Major neurocognitive disorder (2) Impulse control disorder, unspecified (3) Anxiety disorder, unspecified (4) Dementia, vascular, with depression (5) Dementia, vascular, with delusions (6) Dementia in Alzheimer's disease with depression (7) Dementia in Alzheimer's disease with delusions (8) Dementia of the Alzheimer's type with early onset with behavioral disturbance RENEE RAINEY MD Jun 06, 2021 06:46
--- NOTE | 2021-06-06 06:59 | PDOC ---
Exam Note: Hank Note: This note is a late entry for 06/05/2021 covers elements not covered in my initial note. Subjective: The patient was seen face to face in the evening of 06/05/2021 with Gabrielle SAM, discussed and reviewed the chart. The patient slept 5-1/2 hours previous night. He has been confused but not agitated or aggressive. I met with him in the hallway. Review of Systems: No CV, pulmonary, eye, ENT system symptoms on review. Reliability poor. Mental Status Exam: The patient is oriented to himself. Insight and judgment, recent and remote memory, attention and concentration, fund of knowledge is poor consistent with his diagnoses. Laboratory Data: Reviewed. Impression: Major neurocognitive disorder Alzheimer, vascular with delusion, depression, behavioral disturbance. Anxiety disorder unspecified. Impulse control disorder unspecified. Plan: Continue current psychotropics unchanged. Assessment: Vital Signs/I&O: Vital Signs Date Time Temp Pulse Resp B/P (MAP) Pulse Ox O2 Delivery O2 Flow Rate FiO2 06/06/21 06:08 97.8 72 14 136/81 (99) 98 06/05/21 15:24 Room Air I & O 06/05/21 06/05/21 06/06/21 15:00 23:00 07:00 Intake Total 480 ml 360 ml Balance 480 ml 360 ml Current Medications: Meds: Current Medications Medications (Trade) Dose Ordered Sig/Altaf Route PRN Reason Start Time Stop Time Status Last Admin Dose Admin Acetaminophen (Tylenol) 650 mg PRN Q6HRS PRN PO MILD PAIN / TEMP > 100.3'F 05/30/21 13:00 Multi-Ingredient Ointment (Analgesic [place]) 1 abdi PRN QID PRN TP MUSCLE PAIN 05/30/21 13:00 Al Hydroxide/Mg Hydroxide (Mylanta Plus Xs) 15 ml PRN AFTMEALHC PRN PO DYSPEPSIA 05/30/21 13:00 Magnesium Hydroxide (Milk Of Magnesia) 2,400 mg PRN QHS PRN PO 3RD CHOICE CONSTIPATION 05/30/21 13:00 Alprazolam (Xanax) 0.5 mg PRN Q8HRS PRN PO ANXIETY 05/30/21 13:15 06/04/21 16:24 DC 06/04/21 13:23 Carbidopa/Levodopa (Sinemet 25/100) 1 tab 5XDAY PO 05/30/21 14:00 06/06/21 06:22 Vitamin D (Vitamin D3) 2,000 unit DAILY PO 05/31/21 09:00 06/05/21 08:14 Cyclobenzaprine HCl (Flexeril) 10 mg PRN Q8HRS PRN PO MUSCLE SPASMS 05/30/21 13:15 Docusate Sodium (Colace) 100 mg PRN DAILY PRN PO 1ST CHOICE CONSTIPATION 05/30/21 13:15 Duloxetine HCl (Cymbalta) 60 mg DAILY PO 05/31/21 09:00 06/05/21 08:14 Albuterol/ Ipratropium (Combivent Respimat 20-100 Mcg) 1 puff PRN TID PRN INH SHORTNESS OF BREATH 05/30/21 14:00 Memantine (Namenda) 5 mg BID PO 05/30/21 21:00 06/03/21 23:30 DC 06/03/21 20:42 Ondansetron HCl (Zofran Odt) 4 mg PRN Q4HRS PRN PO 1ST CHOICE NAUSEA/VOMITING 05/30/21 13:15 Polyethylene Glycol (miraLAX) 17 gm PRN DAILY PRN PO 2ND CHOICE CONSTIPATION 05/30/21 13:15 Promethazine HCl (Phenergan Supp) 25 mg PRN Q4HRS PRN RC 2ND CHOICE NAUSEA 05/30/21 13:15 Alendronate Sodium (Fosamax) 70 mg WEEKLY@0600 PO 05/31/21 06:00 05/30/21 22:18 DC Albuterol Sulfate (Ventolin Hfa Inhaler) 1 puff RTQID INH 05/30/21 16:00 06/05/21 19:49 Calcium Carbonate/ Glycine (Tums) 500 mg TID PRN PRN PO HEARTBURN / GAS 05/30/21 14:00 Throat Lozenges (Cepacol Sore Throat Lozenge) 1 linnette PRN Q2HR PRN PO COUGH 05/30/21 14:00 Pregabalin (Lyrica) 100 mg BID PO 05/30/21 21:00 06/05/21 19:51 Alendronate Sodium (Fosamax) 70 mg Sa PO 05/31/21 06:00 8/14/21 05:57 Mirtazapine (Remeron) 7.5 mg QHS PO 05/31/21 21:00 06/05/21 19:50 Divalproex Sodium (Depakote Sprinkles) 125 mg 0900,1700 PO 06/01/21 17:00 06/04/21 16:24 DC 06/04/21 08:01 Divalproex Sodium (Depakote Sprinkles) 250 mg 0900,1700 PO 06/04/21 17:00 06/05/21 16:21 Olanzapine (ZyPREXA ZYDIS) 2.5 mg PRN Q2HR PRN PO PSYCHOSIS 06/04/21 16:30 I have reviewed the current psychotropics carefully including drug interactions. Risk benefit ratio favors no change other than as noted in my dictated progress note. Diagnosis: Problems: (1) Major neurocognitive disorder (2) Impulse control disorder, unspecified (3) Anxiety disorder, unspecified (4) Dementia, vascular, with depression (5) Dementia, vascular, with delusions (6) Dementia in Alzheimer's disease with depression (7) Dementia in Alzheimer's disease with delusions (8) Dementia of the Alzheimer's type with early onset with behavioral disturbance RENEE RAINEY MD Jun 06, 2021 06:59
[2021-06-06] MEDS: DULoxetine HCL 60 MG CAPSULE.DR PO SCH (10:17)
[2021-06-06] MEDS: CHOLECALCIFEROL (VITAMIN D3) 1,000 UNIT TABLET PO SCH (10:17)
[2021-06-06] MEDS: DIVALPROEX 125 MG CAP.SPRINK PO SCH ×2 (10:17→17:00)
[2021-06-06] MEDS: PREGABALIN 50 MG CAPSULE PO SCH ×2 (10:18→19:49)
[2021-06-06] MEDS: ALBUTEROL SULFATE 8GM INHALER. INH SCH ×4 (10:18→19:49)
--- NOTE | 2021-06-06 10:56 | NUR ---
Pt was sitting outside of his room during assessment and medication administration. He remains confused and delusional, but appropriate in his behaviors with others. He was compliant with medications crushed and mixed into pudding. Absent of SI/HI/VH/AH at this time, PAINAD score is 0. Plan of care continues, will pass to next shift.
[2021-06-06 15:43] VITALS: BP 124/85
[2021-06-06] MEDS: MIRTAZAPINE 7.5 MG TABLET. PO SCH (19:49)
--- NOTE | 2021-06-06 22:04 | PDOC ---
Exam Note: Hank Note: Please also refer to the separate dictated note~for this date of service dictated separately.~Patient seen individually. Discussed the patient with Nursing staff reviewed the chart.~Reviewed interim history and current functioning. Reviewed vital signs,~Labs/ Radiology~and current medications noted below. Continue current treatment with the changes noted in the dictated addendum note Assessment: Vital Signs/I&O: Vital Signs Date Time Temp Pulse Resp B/P (MAP) Pulse Ox O2 Delivery O2 Flow Rate FiO2 06/06/21 15:43 98.0 90 18 124/85 (98) 96 06/05/21 15:24 Room Air I & O 06/05/21 06/05/21 06/06/21 15:00 23:00 07:00 Intake Total 480 ml 360 ml Balance 480 ml 360 ml Labs: Laboratory Tests Test 06/06/21 11:54 Glucose (Fingerstick) 86 mg/dL (70-99) Current Medications: Meds: Laboratory Tests Test 06/06/21 11:54 Glucose (Fingerstick) 86 mg/dL Current Medications Medications (Trade) Dose Ordered Sig/Altaf Route PRN Reason Start Time Stop Time Status Last Admin Dose Admin Acetaminophen (Tylenol) 650 mg PRN Q6HRS PRN PO MILD PAIN / TEMP > 100.3'F 05/30/21 13:00 Multi-Ingredient Ointment (Analgesic [place]) 1 abdi PRN QID PRN TP MUSCLE PAIN 05/30/21 13:00 Al Hydroxide/Mg Hydroxide (Mylanta Plus Xs) 15 ml PRN AFTMEALHC PRN PO DYSPEPSIA 05/30/21 13:00 Magnesium Hydroxide (Milk Of Magnesia) 2,400 mg PRN QHS PRN PO 3RD CHOICE CONSTIPATION 05/30/21 13:00 Alprazolam (Xanax) 0.5 mg PRN Q8HRS PRN PO ANXIETY 05/30/21 13:15 06/04/21 16:24 DC 06/04/21 13:23 Carbidopa/Levodopa (Sinemet 25/100) 1 tab 5XDAY PO 05/30/21 14:00 06/06/21 19:49 Vitamin D (Vitamin D3) 2,000 unit DAILY PO 05/31/21 09:00 06/06/21 10:17 Cyclobenzaprine HCl (Flexeril) 10 mg PRN Q8HRS PRN PO MUSCLE SPASMS 05/30/21 13:15 Docusate Sodium (Colace) 100 mg PRN DAILY PRN PO 1ST CHOICE CONSTIPATION 05/30/21 13:15 Duloxetine HCl (Cymbalta) 60 mg DAILY PO 05/31/21 09:00 06/06/21 10:17 Albuterol/ Ipratropium (Combivent Respimat 20-100 Mcg) 1 puff PRN TID PRN INH SHORTNESS OF BREATH 05/30/21 14:00 Memantine (Namenda) 5 mg BID PO 05/30/21 21:00 06/03/21 23:30 DC 06/03/21 20:42 Ondansetron HCl (Zofran Odt) 4 mg PRN Q4HRS PRN PO 1ST CHOICE NAUSEA/VOMITING 05/30/21 13:15 Polyethylene Glycol (miraLAX) 17 gm PRN DAILY PRN PO 2ND CHOICE CONSTIPATION 05/30/21 13:15 Promethazine HCl (Phenergan Supp) 25 mg PRN Q4HRS PRN RC 2ND CHOICE NAUSEA 05/30/21 13:15 Alendronate Sodium (Fosamax) 70 mg WEEKLY@0600 PO 05/31/21 06:00 05/30/21 22:18 DC Albuterol Sulfate (Ventolin Hfa Inhaler) 1 puff RTQID INH 05/30/21 16:00 06/06/21 19:49 Calcium Carbonate/ Glycine (Tums) 500 mg TID PRN PRN PO HEARTBURN / GAS 05/30/21 14:00 Throat Lozenges (Cepacol Sore Throat Lozenge) 1 linnette PRN Q2HR PRN PO COUGH 05/30/21 14:00 Pregabalin (Lyrica) 100 mg BID PO 05/30/21 21:00 06/06/21 19:49 Alendronate Sodium (Fosamax) 70 mg Sa PO 05/31/21 06:00 05/31/21 05:57 Mirtazapine (Remeron) 7.5 mg QHS PO 05/31/21 21:00 06/06/21 19:49 Divalproex Sodium (Depakote Sprinkles) 125 mg 0900,1700 PO 06/01/21 17:00 06/04/21 16:24 DC 06/04/21 08:01 Divalproex Sodium (Depakote Sprinkles) 250 mg 0900,1700 PO 06/04/21 17:00 06/06/21 17:00 Olanzapine (ZyPREXA ZYDIS) 2.5 mg PRN Q2HR PRN PO PSYCHOSIS 06/04/21 16:30 Trazodone HCl (Desyrel) 50 mg PRN QHS PRN PO INSOMNIA 06/06/21 20:30 I have reviewed the current psychotropics carefully including drug interactions. Risk benefit ratio favors no change other than as noted in my dictated progress note. Diagnosis: Problems: (1) Major neurocognitive disorder (2) Impulse control disorder, unspecified (3) Anxiety disorder, unspecified (4) Dementia, vascular, with depression (5) Dementia, vascular, with delusions (6) Dementia in Alzheimer's disease with depression (7) Dementia in Alzheimer's disease with delusions (8) Dementia of the Alzheimer's type with early onset with behavioral disturbance RENEE RAINEY MD Jun 06, 2021 22:03
--- NOTE | 2021-06-07 01:20 | NUR ---
Last evening pt sat quietly in the hallway. He took meds whole without difficulty. He was cooperative with HS care has had no behaviors and has been sleeping.
[2021-06-07] MEDS: CARBIDOPA/LEVODOPA 25/100MG TABLET PO SCH ×5 (04:58→20:03)
[2021-06-07] MEDS: ALENDRONATE SODIUM 35 MG TABLET PO SCH (04:58)
[2021-06-07 05:40] VITALS: BP 101/73
[2021-06-07] MEDS: ALBUTEROL SULFATE 8GM INHALER. INH SCH ×4 (08:00→20:03)
[2021-06-07] MEDS: PREGABALIN 50 MG CAPSULE PO SCH ×2 (08:44→20:03)
[2021-06-07] MEDS: DULoxetine HCL 60 MG CAPSULE.DR PO SCH (08:44)
[2021-06-07] MEDS: DIVALPROEX 125 MG CAP.SPRINK PO SCH ×2 (08:44→17:11)
[2021-06-07] MEDS: CHOLECALCIFEROL (VITAMIN D3) 1,000 UNIT TABLET PO SCH (08:44)
--- NOTE | 2021-06-07 15:45 | NUR ---
Nurse Note Patient disorganized, confused takes medication whole in pudding. Patient is complaint with medication ,wandering in hallway quietly. Patient calm and resting in room at times.
[2021-06-07 15:48] VITALS: BP 113/79
--- NOTE | 2021-06-07 15:50 | NUR ---
Nurse note Patient confused, easily redirected. up in wheelchair in hallway, socializes with staff and peers. no behaviors , complaint with medication . voices needs.
[2021-06-07] MEDS: MIRTAZAPINE 7.5 MG TABLET. PO SCH (20:03)
--- NOTE | 2021-06-07 21:57 | PDOC ---
Exam Note: Hank Note: Please also refer to the separate dictated note~for this date of service dictated separately.~Patient seen individually. Discussed the patient with Nursing staff reviewed the chart.~Reviewed interim history and current functioning. Reviewed vital signs,~Labs/ Radiology~and current medications noted below. Continue current treatment with the changes noted in the dictated addendum note Assessment: Vital Signs/I&O: Vital Signs Date Time Temp Pulse Resp B/P (MAP) Pulse Ox O2 Delivery O2 Flow Rate FiO2 06/07/21 15:48 97.8 65 18 113/79 (90) 94 06/05/21 15:24 Room Air I & O 06/06/21 06/06/21 06/07/21 15:00 23:00 07:00 Intake Total 200 ml 120 ml Balance 200 ml 120 ml Current Medications: Meds: Current Medications Medications (Trade) Dose Ordered Sig/Altaf Route PRN Reason Start Time Stop Time Status Last Admin Dose Admin Acetaminophen (Tylenol) 650 mg PRN Q6HRS PRN PO MILD PAIN / TEMP > 100.3'F 05/30/21 13:00 Multi-Ingredient Ointment (Analgesic [place]) 1 abdi PRN QID PRN TP MUSCLE PAIN 05/30/21 13:00 Al Hydroxide/Mg Hydroxide (Mylanta Plus Xs) 15 ml PRN AFTMEALHC PRN PO DYSPEPSIA 05/30/21 13:00 Magnesium Hydroxide (Milk Of Magnesia) 2,400 mg PRN QHS PRN PO 3RD CHOICE CONSTIPATION 05/30/21 13:00 Alprazolam (Xanax) 0.5 mg PRN Q8HRS PRN PO ANXIETY 05/30/21 13:15 06/04/21 16:24 DC 06/04/21 13:23 Carbidopa/Levodopa (Sinemet 25/100) 1 tab 5XDAY PO 05/30/21 14:00 06/07/21 20:03 Vitamin D (Vitamin D3) 2,000 unit DAILY PO 05/31/21 09:00 06/07/21 08:44 Cyclobenzaprine HCl (Flexeril) 10 mg PRN Q8HRS PRN PO MUSCLE SPASMS 05/30/21 13:15 Docusate Sodium (Colace) 100 mg PRN DAILY PRN PO 1ST CHOICE CONSTIPATION 05/30/21 13:15 Duloxetine HCl (Cymbalta) 60 mg DAILY PO 05/31/21 09:00 06/07/21 08:44 Albuterol/ Ipratropium (Combivent Respimat 20-100 Mcg) 1 puff PRN TID PRN INH SHORTNESS OF BREATH 05/30/21 14:00 Memantine (Namenda) 5 mg BID PO 05/30/21 21:00 06/03/21 23:30 DC 06/03/21 20:42 Ondansetron HCl (Zofran Odt) 4 mg PRN Q4HRS PRN PO 1ST CHOICE NAUSEA/VOMITING 05/30/21 13:15 Polyethylene Glycol (miraLAX) 17 gm PRN DAILY PRN PO 2ND CHOICE CONSTIPATION 05/30/21 13:15 Promethazine HCl (Phenergan Supp) 25 mg PRN Q4HRS PRN RC 2ND CHOICE NAUSEA 05/30/21 13:15 Alendronate Sodium (Fosamax) 70 mg WEEKLY@0600 PO 05/31/21 06:00 05/30/21 22:18 DC Albuterol Sulfate (Ventolin Hfa Inhaler) 1 puff RTQID INH 05/30/21 16:00 06/07/21 20:03 Calcium Carbonate/ Glycine (Tums) 500 mg TID PRN PRN PO HEARTBURN / GAS 05/30/21 14:00 Throat Lozenges (Cepacol Sore Throat Lozenge) 1 linnette PRN Q2HR PRN PO COUGH 05/30/21 14:00 Pregabalin (Lyrica) 100 mg BID PO 05/30/21 21:00 06/07/21 20:03 Alendronate Sodium (Fosamax) 70 mg Sa PO 05/31/21 06:00 06/07/21 04:58 Mirtazapine (Remeron) 7.5 mg QHS PO 05/31/21 21:00 06/07/21 20:03 Divalproex Sodium (Depakote Sprinkles) 125 mg 0900,1700 PO 06/01/21 17:00 06/04/21 16:24 DC 06/04/21 08:01 Divalproex Sodium (Depakote Sprinkles) 250 mg 0900,1700 PO 06/04/21 17:00 06/07/21 17:11 Olanzapine (ZyPREXA ZYDIS) 2.5 mg PRN Q2HR PRN PO PSYCHOSIS 06/04/21 16:30 Trazodone HCl (Desyrel) 50 mg PRN QHS PRN PO INSOMNIA 06/06/21 20:30 I have reviewed the current psychotropics carefully including drug interactions. Risk benefit ratio favors no change other than as noted in my dictated progress note. Diagnosis: Problems: (1) Major neurocognitive disorder (2) Impulse control disorder, unspecified (3) Anxiety disorder, unspecified (4) Dementia, vascular, with depression (5) Dementia, vascular, with delusions (6) Dementia in Alzheimer's disease with depression (7) Dementia in Alzheimer's disease with delusions (8) Dementia of the Alzheimer's type with early onset with behavioral disturbance RENEE RAINEY MD Jun 07, 2021 21:57
[2021-06-07] MEDS: traZODone 50 MG TABLET. PO PRN (22:04)
--- NOTE | 2021-06-07 23:00 | NUR ---
Patient is located in the hallway for assessments and medications. He is sitting with peers, eating a snack. Compliant with medications crushed in chocolate pudding. Disorganized, confused. After HS care, patient wandering in his room and the hallway, not wanting to go to sleep yet. This nurse directed him back to his room, and asked if he wanted something to help him sleep, which he agreed to. PRN Trazodone given at 2200, with good effect. Patient appears to be sleeping comfortably at present time. Will continue to monitor.
[2021-06-08] MEDS: CARBIDOPA/LEVODOPA 25/100MG TABLET PO SCH ×5 (05:37→19:46)
[2021-06-08 06:40] VITALS: BP 139/81
[2021-06-08] MEDS: PREGABALIN 50 MG CAPSULE PO SCH ×2 (08:42→19:46)
[2021-06-08] MEDS: ALBUTEROL SULFATE 8GM INHALER. INH SCH ×4 (08:42→17:22)
[2021-06-08] MEDS: CHOLECALCIFEROL (VITAMIN D3) 1,000 UNIT TABLET PO SCH (08:42)
[2021-06-08] MEDS: DULoxetine HCL 60 MG CAPSULE.DR PO SCH (08:43)
[2021-06-08] MEDS: DIVALPROEX 125 MG CAP.SPRINK PO SCH ×2 (08:43→17:21)
--- NOTE | 2021-06-08 09:04 | NUR ---
Pt was sitting outside of his room during assessment and medication administration. He remains confused and delusional. He briefly attempted to hit and rattle the plexiglass hallway divider and required redirection to cease the activity. He was compliant with medications crushed and mixed into pudding but multiple attempts at encouragement for him to open his was was necessary d/t him not opening wide enough for a spoon.. Absent of SI/HI/VH/AH at this time, PAINAD score is 0. Pt A&O to self only, which has been his baseline since admission. Plan of care continues, will pass to next shift.
[2021-06-08 11:07] LABS: BASO % 1 % (0-3); EOS # 0.2 x10^3/uL (0.0-0.7); EOS % 4 % (0-3); HEMATOCRIT 43.8 % (39.0-53.0); HEMOGLOBIN 14.4 g/dL (13.0-17.5); LYMPH # 1.1 x10^3/uL (1.0-4.8); LYMPH % 20 % (24-48); MEAN CORPUSCULAR HEMOGLOBIN 30 pg (25-35); MEAN CORPUSCULAR HGB CONC 33 g/dL (31-37); MEAN CORPUSCULAR VOLUME 90 fL (79-100); MONO # 0.5 x10^3/uL (0.0-1.1); MONO % 9 % (0-9); NEUT # 3.5 x10^3uL (1.8-7.7); NEUT % 66 % (31-73); PLATELET COUNT 141 x10^3/uL (140-400); RED BLOOD COUNT 4.87 x10^6/uL (4.30-5.70); RED CELL DISTRIBUTION WIDTH 14.1 % (11.5-14.5); WHITE BLOOD COUNT 5.4 x10^3/uL (4.0-11.0)
[2021-06-08 11:27] LABS: ALBUMIN/GLOBULIN RATIO 0.9 (1.0-1.7); ALK PHOS 77 U/L (46-116); ALT (SGPT) 7 U/L (16-63); ANION GAP 7 (6-14); AST (SGOT) 14 U/L (15-37); BLOOD UREA NITROGEN 16 mg/dL (8-26); BUN/CREATININE RATIO 18 (6-20); CALCIUM 8.6 mg/dL (8.5-10.1); CARBON DIOXIDE 28 mmol/L (21-32); CHLORIDE 112 mmol/L (98-107); CREATININE 0.9 mg/dL (0.7-1.3); GFR 82.9; GLUCOSE 118 mg/dL (70-99); POTASSIUM 3.6 mmol/L (3.5-5.1); SODIUM 147 mmol/L (136-145); TOTAL BILIRUBIN 0.6 mg/dL (0.2-1.0); TOTAL PROTEIN 6.3 g/dL (6.4-8.2)
[2021-06-08 11:39] LABS: VAL ACID 32 mcg/mL (50-100)
[2021-06-08 16:06] VITALS: BP 112/78
[2021-06-08] MEDS: traZODone 50 MG TABLET. PO PRN (19:46)
[2021-06-08] MEDS: MIRTAZAPINE 7.5 MG TABLET. PO SCH (19:46)
--- NOTE | 2021-06-08 23:08 | PDOC ---
Exam Note: Hank Note: Please also refer to the separate dictated note~for this date of service dictated separately.~Patient seen individually. Discussed the patient with Nursing staff reviewed the chart.~Reviewed interim history and current functioning. Reviewed vital signs,~Labs/ Radiology~and current medications noted below. Continue current treatment with the changes noted in the dictated addendum note Assessment: Vital Signs/I&O: Vital Signs Date Time Temp Pulse Resp B/P (MAP) Pulse Ox O2 Delivery O2 Flow Rate FiO2 06/08/21 16:06 97.0 58 16 112/78 (89) 95 06/05/21 15:24 Room Air I & O 06/07/21 06/07/21 06/08/21 15:00 23:00 07:00 Intake Total 600 ml 480 ml Balance 600 ml 480 ml Labs: Laboratory Tests Test 06/08/21 10:30 White Blood Count 5.4 x10^3/uL (4.0-11.0) Red Blood Count 4.87 x10^6/uL (4.30-5.70) Hemoglobin 14.4 g/dL (13.0-17.5) Hematocrit 43.8 % (39.0-53.0) Mean Corpuscular Volume 90 fL (79-100) Mean Corpuscular Hemoglobin 30 pg (25-35) Mean Corpuscular Hemoglobin Concent 33 g/dL (31-37) Red Cell Distribution Width 14.1 % (11.5-14.5) Platelet Count 141 x10^3/uL (140-400) Neutrophils (%) (Auto) 66 % (31-73) Lymphocytes (%) (Auto) 20 % (24-48) L Monocytes (%) (Auto) 9 % (0-9) Eosinophils (%) (Auto) 4 % (0-3) H Basophils (%) (Auto) 1 % (0-3) Neutrophils # (Auto) 3.5 x10^3uL (1.8-7.7) Lymphocytes # (Auto) 1.1 x10^3/uL (1.0-4.8) Monocytes # (Auto) 0.5 x10^3/uL (0.0-1.1) Eosinophils # (Auto) 0.2 x10^3/uL (0.0-0.7) Basophils # (Auto) 0.0 x10^3/uL (0.0-0.2) Sodium Level 147 mmol/L (136-145) H Potassium Level 3.6 mmol/L (3.5-5.1) Chloride Level 112 mmol/L (98-107) H Carbon Dioxide Level 28 mmol/L (21-32) Anion Gap 7 (6-14) Blood Urea Nitrogen 16 mg/dL (8-26) Creatinine 0.9 mg/dL (0.7-1.3) Estimated GFR (Cockcroft-Gault) 82.9 BUN/Creatinine Ratio 18 (6-20) Glucose Level 118 mg/dL (70-99) H Calcium Level 8.6 mg/dL (8.5-10.1) Total Bilirubin 0.6 mg/dL (0.2-1.0) Aspartate Amino Transferase (AST) 14 U/L (15-37) L Alanine Aminotransferase (ALT) 7 U/L (16-63) L Alkaline Phosphatase 77 U/L (46-116) Total Protein 6.3 g/dL (6.4-8.2) L Albumin 3.0 g/dL (3.4-5.0) L Albumin/Globulin Ratio 0.9 (1.0-1.7) L Valproic Acid Level 32 mcg/mL (50-100) L Valproic Acid Last Dose Date 06/07/21 Valproic Acid Last Dose Time 1700 Current Medications: Meds: Laboratory Tests Test 06/08/21 10:30 White Blood Count 5.4 x10^3/uL Red Blood Count 4.87 x10^6/uL Hemoglobin 14.4 g/dL Hematocrit 43.8 % Mean Corpuscular Volume 90 fL Mean Corpuscular Hemoglobin 30 pg Mean Corpuscular Hemoglobin Concent 33 g/dL Red Cell Distribution Width 14.1 % Platelet Count 141 x10^3/uL Neutrophils (%) (Auto) 66 % Lymphocytes (%) (Auto) 20 % Monocytes (%) (Auto) 9 % Eosinophils (%) (Auto) 4 % Basophils (%) (Auto) 1 % Neutrophils # (Auto) 3.5 x10^3uL Lymphocytes # (Auto) 1.1 x10^3/uL Monocytes # (Auto) 0.5 x10^3/uL Eosinophils # (Auto) 0.2 x10^3/uL Basophils # (Auto) 0.0 x10^3/uL Sodium Level 147 mmol/L Potassium Level 3.6 mmol/L Chloride Level 112 mmol/L Carbon Dioxide Level 28 mmol/L Anion Gap 7 Blood Urea Nitrogen 16 mg/dL Creatinine 0.9 mg/dL Estimated GFR (Cockcroft-Gault) 82.9 BUN/Creatinine Ratio 18 Glucose Level 118 mg/dL Calcium Level 8.6 mg/dL Total Bilirubin 0.6 mg/dL Aspartate Amino Transf (AST/SGOT) 14 U/L Alanine Aminotransferase (ALT/SGPT) 7 U/L Alkaline Phosphatase 77 U/L Total Protein 6.3 g/dL Albumin 3.0 g/dL Albumin/Globulin Ratio 0.9 Valproic Acid (Depakene) Level 32 mcg/mL Valproic Acid Last Dose Date 06/07/21 Valproic Acid Last Dose Time 1700 Current Medications Medications (Trade) Dose Ordered Sig/Altaf Route PRN Reason Start Time Stop Time Status Last Admin Dose Admin Acetaminophen (Tylenol) 650 mg PRN Q6HRS PRN PO MILD PAIN / TEMP > 100.3'F 05/30/21 13:00 Multi-Ingredient Ointment (Analgesic [place]) 1 abdi PRN QID PRN TP MUSCLE PAIN 05/30/21 13:00 Al Hydroxide/Mg Hydroxide (Mylanta Plus Xs) 15 ml PRN AFTMEALHC PRN PO DYSPEPSIA 05/30/21 13:00 Magnesium Hydroxide (Milk Of Magnesia) 2,400 mg PRN QHS PRN PO 3RD CHOICE CONSTIPATION 05/30/21 13:00 Alprazolam (Xanax) 0.5 mg PRN Q8HRS PRN PO ANXIETY 05/30/21 13:15 06/04/21 16:24 DC 06/04/21 13:23 Carbidopa/Levodopa (Sinemet 25/100) 1 tab 5XDAY PO 05/30/21 14:00 06/08/21 19:46 Vitamin D (Vitamin D3) 2,000 unit DAILY PO 05/31/21 09:00 06/08/21 08:42 Cyclobenzaprine HCl (Flexeril) 10 mg PRN Q8HRS PRN PO MUSCLE SPASMS 05/30/21 13:15 Docusate Sodium (Colace) 100 mg PRN DAILY PRN PO 1ST CHOICE CONSTIPATION 05/30/21 13:15 Duloxetine HCl (Cymbalta) 60 mg DAILY PO 05/31/21 09:00 06/08/21 08:43 Albuterol/ Ipratropium (Combivent Respimat 20-100 Mcg) 1 puff PRN TID PRN INH SHORTNESS OF BREATH 05/30/21 14:00 Memantine (Namenda) 5 mg BID PO 05/30/21 21:00 06/03/21 23:30 DC 06/03/21 20:42 Ondansetron HCl (Zofran Odt) 4 mg PRN Q4HRS PRN PO 1ST CHOICE NAUSEA/VOMITING 05/30/21 13:15 Polyethylene Glycol (miraLAX) 17 gm PRN DAILY PRN PO 2ND CHOICE CONSTIPATION 05/30/21 13:15 Promethazine HCl (Phenergan Supp) 25 mg PRN Q4HRS PRN RC 2ND CHOICE NAUSEA 05/30/21 13:15 Alendronate Sodium (Fosamax) 70 mg WEEKLY@0600 PO 05/31/21 06:00 05/30/21 22:18 DC Albuterol Sulfate (Ventolin Hfa Inhaler) 1 puff RTQID INH 05/30/21 16:00 06/08/21 17:22 Calcium Carbonate/ Glycine (Tums) 500 mg TID PRN PRN PO HEARTBURN / GAS 05/30/21 14:00 Throat Lozenges (Cepacol Sore Throat Lozenge) 1 linnette PRN Q2HR PRN PO COUGH 05/30/21 14:00 Pregabalin (Lyrica) 100 mg BID PO 05/30/21 21:00 06/08/21 19:46 Alendronate Sodium (Fosamax) 70 mg Sa PO 05/31/21 06:00 06/07/21 04:58 Mirtazapine (Remeron) 7.5 mg QHS PO 05/31/21 21:00 06/08/21 19:46 Divalproex Sodium (Depakote Sprinkles) 125 mg 0900,1700 PO 06/01/21 17:00 06/04/21 16:24 DC 06/04/21 08:01 Divalproex Sodium (Depakote Sprinkles) 250 mg 0900,1700 PO 06/04/21 17:00 06/08/21 17:21 Olanzapine (ZyPREXA ZYDIS) 2.5 mg PRN Q2HR PRN PO PSYCHOSIS 06/04/21 16:30 06/08/21 20:58 Trazodone HCl (Desyrel) 50 mg PRN QHS PRN PO INSOMNIA 06/06/21 20:30 06/08/21 19:46 I have reviewed the current psychotropics carefully including drug interactions. Risk benefit ratio favors no change other than as noted in my dictated progress note. Diagnosis: Problems: (1) Major neurocognitive disorder (2) Impulse control disorder, unspecified (3) Anxiety disorder, unspecified (4) Dementia, vascular, with depression (5) Dementia, vascular, with delusions (6) Dementia in Alzheimer's disease with depression (7) Dementia in Alzheimer's disease with delusions (8) Dementia of the Alzheimer's type with early onset with behavioral disturbance RENEE RAINEY MD Jun 08, 2021 23:08
--- NOTE | 2021-06-08 23:53 | NUR ---
Patient is located in the hallway for assessments and medications, walking around looking for "the cat" and going into other patients rooms repeatedly. Resistive to redirection, disorganized, confused. PRN Trazodone and Zydis given with HS meds, with good effect. He was compliant with medications crushed in chocolate ice cream. He does not appear to be experiencing any pain or discomfort. No agitation. Patient appears to be sleeping comfortably at present time. Will continue to monitor.
[2021-06-09] MEDS: CARBIDOPA/LEVODOPA 25/100MG TABLET PO SCH ×5 (04:59→19:49)
[2021-06-09 06:22] VITALS: BP 111/74
--- NOTE | 2021-06-09 06:36 | PDOC ---
Exam Note: Hank Note: This note is a late entry for 06/06/2021 covers elements not covered in my initial note. Subjective: The patient was seen face to face in the evening of 06/06/2021 with Levi SAM, discussed and reviewed the chart. The patient slept 5-3/4 hours previous night. He slept poorly previous night. We will give him trazodone 50 mg h.s. p.r.n. He remains confused, not aggressive during the day. Review of Systems: No CV, pulmonary, eye, ENT system symptoms on review. Reliability poor. Mental Status Exam: The patient is oriented to himself. Insight and judgment, recent and remote memory, attention and concentration, fund of knowledge is poor consistent with his diagnoses. Laboratory Data: Reviewed. Impression: Major neurocognitive disorder Alzheimer, vascular with delusion, depression, behavioral disturbance. Anxiety disorder unspecified. Impulse control disorder unspecified. Plan: Continue current psychotropics unchanged. Assessment: Vital Signs/I&O: Vital Signs Date Time Temp Pulse Resp B/P (MAP) Pulse Ox O2 Delivery O2 Flow Rate FiO2 06/09/21 06:22 97.4 73 16 111/74 (86) 92 Room Air I & O 06/08/21 06/08/21 06/09/21 15:00 23:00 07:00 Intake Total 240 ml 240 ml 120 ml Balance 240 ml 240 ml 120 ml Labs: Laboratory Tests Test 06/08/21 10:30 White Blood Count 5.4 x10^3/uL (4.0-11.0) Red Blood Count 4.87 x10^6/uL (4.30-5.70) Hemoglobin 14.4 g/dL (13.0-17.5) Hematocrit 43.8 % (39.0-53.0) Mean Corpuscular Volume 90 fL (79-100) Mean Corpuscular Hemoglobin 30 pg (25-35) Mean Corpuscular Hemoglobin Concent 33 g/dL (31-37) Red Cell Distribution Width 14.1 % (11.5-14.5) Platelet Count 141 x10^3/uL (140-400) Neutrophils (%) (Auto) 66 % (31-73) Lymphocytes (%) (Auto) 20 % (24-48) L Monocytes (%) (Auto) 9 % (0-9) Eosinophils (%) (Auto) 4 % (0-3) H Basophils (%) (Auto) 1 % (0-3) Neutrophils # (Auto) 3.5 x10^3uL (1.8-7.7) Lymphocytes # (Auto) 1.1 x10^3/uL (1.0-4.8) Monocytes # (Auto) 0.5 x10^3/uL (0.0-1.1) Eosinophils # (Auto) 0.2 x10^3/uL (0.0-0.7) Basophils # (Auto) 0.0 x10^3/uL (0.0-0.2) Sodium Level 147 mmol/L (136-145) H Potassium Level 3.6 mmol/L (3.5-5.1) Chloride Level 112 mmol/L (98-107) H Carbon Dioxide Level 28 mmol/L (21-32) Anion Gap 7 (6-14) Blood Urea Nitrogen 16 mg/dL (8-26) Creatinine 0.9 mg/dL (0.7-1.3) Estimated GFR (Cockcroft-Gault) 82.9 BUN/Creatinine Ratio 18 (6-20) Glucose Level 118 mg/dL (70-99) H Calcium Level 8.6 mg/dL (8.5-10.1) Total Bilirubin 0.6 mg/dL (0.2-1.0) Aspartate Amino Transferase (AST) 14 U/L (15-37) L Alanine Aminotransferase (ALT) 7 U/L (16-63) L Alkaline Phosphatase 77 U/L (46-116) Total Protein 6.3 g/dL (6.4-8.2) L Albumin 3.0 g/dL (3.4-5.0) L Albumin/Globulin Ratio 0.9 (1.0-1.7) L Valproic Acid Level 32 mcg/mL (50-100) L Valproic Acid Last Dose Date 06/07/21 Valproic Acid Last Dose Time 1700 Current Medications: Meds: Laboratory Tests Test 06/08/21 10:30 White Blood Count 5.4 x10^3/uL Red Blood Count 4.87 x10^6/uL Hemoglobin 14.4 g/dL Hematocrit 43.8 % Mean Corpuscular Volume 90 fL Mean Corpuscular Hemoglobin 30 pg Mean Corpuscular Hemoglobin Concent 33 g/dL Red Cell Distribution Width 14.1 % Platelet Count 141 x10^3/uL Neutrophils (%) (Auto) 66 % Lymphocytes (%) (Auto) 20 % Monocytes (%) (Auto) 9 % Eosinophils (%) (Auto) 4 % Basophils (%) (Auto) 1 % Neutrophils # (Auto) 3.5 x10^3uL Lymphocytes # (Auto) 1.1 x10^3/uL Monocytes # (Auto) 0.5 x10^3/uL Eosinophils # (Auto) 0.2 x10^3/uL Basophils # (Auto) 0.0 x10^3/uL Sodium Level 147 mmol/L Potassium Level 3.6 mmol/L Chloride Level 112 mmol/L Carbon Dioxide Level 28 mmol/L Anion Gap 7 Blood Urea Nitrogen 16 mg/dL Creatinine 0.9 mg/dL Estimated GFR (Cockcroft-Gault) 82.9 BUN/Creatinine Ratio 18 Glucose Level 118 mg/dL Calcium Level 8.6 mg/dL Total Bilirubin 0.6 mg/dL Aspartate Amino Transf (AST/SGOT) 14 U/L Alanine Aminotransferase (ALT/SGPT) 7 U/L Alkaline Phosphatase 77 U/L Total Protein 6.3 g/dL Albumin 3.0 g/dL Albumin/Globulin Ratio 0.9 Valproic Acid (Depakene) Level 32 mcg/mL Valproic Acid Last Dose Date 06/07/21 Valproic Acid Last Dose Time 1700 Current Medications Medications (Trade) Dose Ordered Sig/Altaf Route PRN Reason Start Time Stop Time Status Last Admin Dose Admin Acetaminophen (Tylenol) 650 mg PRN Q6HRS PRN PO MILD PAIN / TEMP > 100.3'F 05/30/21 13:00 Multi-Ingredient Ointment (Analgesic [place]) 1 abdi PRN QID PRN TP MUSCLE PAIN 05/30/21 13:00 Al Hydroxide/Mg Hydroxide (Mylanta Plus Xs) 15 ml PRN AFTMEALHC PRN PO DYSPEPSIA 05/30/21 13:00 Magnesium Hydroxide (Milk Of Magnesia) 2,400 mg PRN QHS PRN PO 3RD CHOICE CONSTIPATION 05/30/21 13:00 Alprazolam (Xanax) 0.5 mg PRN Q8HRS PRN PO ANXIETY 05/30/21 13:15 06/04/21 16:24 DC 06/04/21 13:23 Carbidopa/Levodopa (Sinemet 25/100) 1 tab 5XDAY PO 05/30/21 14:00 06/09/21 04:59 Vitamin D (Vitamin D3) 2,000 unit DAILY PO 05/31/21 09:00 06/08/21 08:42 Cyclobenzaprine HCl (Flexeril) 10 mg PRN Q8HRS PRN PO MUSCLE SPASMS 05/30/21 13:15 Docusate Sodium (Colace) 100 mg PRN DAILY PRN PO 1ST CHOICE CONSTIPATION 05/30/21 13:15 Duloxetine HCl (Cymbalta) 60 mg DAILY PO 05/31/21 09:00 06/08/21 08:43 Albuterol/ Ipratropium (Combivent Respimat 20-100 Mcg) 1 puff PRN TID PRN INH SHORTNESS OF BREATH 05/30/21 14:00 Memantine (Namenda) 5 mg BID PO 05/30/21 21:00 06/03/21 23:30 DC 06/03/21 20:42 Ondansetron HCl (Zofran Odt) 4 mg PRN Q4HRS PRN PO 1ST CHOICE NAUSEA/VOMITING 05/30/21 13:15 Polyethylene Glycol (miraLAX) 17 gm PRN DAILY PRN PO 2ND CHOICE CONSTIPATION 05/30/21 13:15 Promethazine HCl (Phenergan Supp) 25 mg PRN Q4HRS PRN RC 2ND CHOICE NAUSEA 05/30/21 13:15 Alendronate Sodium (Fosamax) 70 mg WEEKLY@0600 PO 05/31/21 06:00 05/30/21 22:18 DC Albuterol Sulfate (Ventolin Hfa Inhaler) 1 puff RTQID INH 05/30/21 16:00 06/08/21 17:22 Calcium Carbonate/ Glycine (Tums) 500 mg TID PRN PRN PO HEARTBURN / GAS 05/30/21 14:00 Throat Lozenges (Cepacol Sore Throat Lozenge) 1 linnette PRN Q2HR PRN PO COUGH 05/30/21 14:00 Pregabalin (Lyrica) 100 mg BID PO 05/30/21 21:00 06/08/21 19:46 Alendronate Sodium (Fosamax) 70 mg Sa PO 05/31/21 06:00 06/07/21 04:58 Mirtazapine (Remeron) 7.5 mg QHS PO 05/31/21 21:00 06/08/21 19:46 Divalproex Sodium (Depakote Sprinkles) 125 mg 0900,1700 PO 06/01/21 17:00 06/04/21 16:24 DC 06/04/21 08:01 Divalproex Sodium (Depakote Sprinkles) 250 mg 0900,1700 PO 06/04/21 17:00 06/08/21 17:21 Olanzapine (ZyPREXA ZYDIS) 2.5 mg PRN Q2HR PRN PO PSYCHOSIS 06/04/21 16:30 06/08/21 20:58 Trazodone HCl (Desyrel) 50 mg PRN QHS PRN PO INSOMNIA 06/06/21 20:30 06/08/21 19:46 I have reviewed the current psychotropics carefully including drug interactions. Risk benefit ratio favors no change other than as noted in my dictated progress note. Diagnosis: Problems: (1) Major neurocognitive disorder (2) Impulse control disorder, unspecified (3) Anxiety disorder, unspecified (4) Dementia, vascular, with depression (5) Dementia, vascular, with delusions (6) Dementia in Alzheimer's disease with depression (7) Dementia in Alzheimer's disease with delusions (8) Dementia of the Alzheimer's type with early onset with behavioral disturbance RENEE RAINEY MD Jun 09, 2021 06:36
--- NOTE | 2021-06-09 06:48 | PDOC ---
Exam Note: Hank Note: This note is a late entry for 06/07/2021 covers elements not covered in my initial note. Subjective: The patient was seen face to face in the evening of 06/07/2021 with Micheline SAM, discussed and reviewed the chart. The patient slept 8-1/4 hours previous night. He has been more compliant. He remains confused. He takes medications with encouragement. Review of Systems: No CV, pulmonary, eye, ENT system symptoms on review. Reliability poor. Mental Status Exam: The patient is oriented to himself. Insight and judgment, recent and remote memory, attention and concentration, fund of knowledge is poor consistent with his diagnoses. Laboratory Data: Reviewed. Impression: Major neurocognitive disorder Alzheimer, vascular with delusion, depression, behavioral disturbance. Anxiety disorder unspecified. Impulse control disorder unspecified. Plan: Continue current psychotropics unchanged. Assessment: Vital Signs/I&O: Vital Signs Date Time Temp Pulse Resp B/P (MAP) Pulse Ox O2 Delivery O2 Flow Rate FiO2 06/09/21 06:22 97.4 73 16 111/74 (86) 92 Room Air I & O 06/08/21 06/08/21 06/09/21 14:59 22:59 06:59 Intake Total 240 ml 240 ml 120 ml Balance 240 ml 240 ml 120 ml Labs: Laboratory Tests Test 06/08/21 10:30 White Blood Count 5.4 x10^3/uL (4.0-11.0) Red Blood Count 4.87 x10^6/uL (4.30-5.70) Hemoglobin 14.4 g/dL (13.0-17.5) Hematocrit 43.8 % (39.0-53.0) Mean Corpuscular Volume 90 fL (79-100) Mean Corpuscular Hemoglobin 30 pg (25-35) Mean Corpuscular Hemoglobin Concent 33 g/dL (31-37) Red Cell Distribution Width 14.1 % (11.5-14.5) Platelet Count 141 x10^3/uL (140-400) Neutrophils (%) (Auto) 66 % (31-73) Lymphocytes (%) (Auto) 20 % (24-48) L Monocytes (%) (Auto) 9 % (0-9) Eosinophils (%) (Auto) 4 % (0-3) H Basophils (%) (Auto) 1 % (0-3) Neutrophils # (Auto) 3.5 x10^3uL (1.8-7.7) Lymphocytes # (Auto) 1.1 x10^3/uL (1.0-4.8) Monocytes # (Auto) 0.5 x10^3/uL (0.0-1.1) Eosinophils # (Auto) 0.2 x10^3/uL (0.0-0.7) Basophils # (Auto) 0.0 x10^3/uL (0.0-0.2) Sodium Level 147 mmol/L (136-145) H Potassium Level 3.6 mmol/L (3.5-5.1) Chloride Level 112 mmol/L (98-107) H Carbon Dioxide Level 28 mmol/L (21-32) Anion Gap 7 (6-14) Blood Urea Nitrogen 16 mg/dL (8-26) Creatinine 0.9 mg/dL (0.7-1.3) Estimated GFR (Cockcroft-Gault) 82.9 BUN/Creatinine Ratio 18 (6-20) Glucose Level 118 mg/dL (70-99) H Calcium Level 8.6 mg/dL (8.5-10.1) Total Bilirubin 0.6 mg/dL (0.2-1.0) Aspartate Amino Transferase (AST) 14 U/L (15-37) L Alanine Aminotransferase (ALT) 7 U/L (16-63) L Alkaline Phosphatase 77 U/L (46-116) Total Protein 6.3 g/dL (6.4-8.2) L Albumin 3.0 g/dL (3.4-5.0) L Albumin/Globulin Ratio 0.9 (1.0-1.7) L Valproic Acid Level 32 mcg/mL (50-100) L Valproic Acid Last Dose Date 06/07/21 Valproic Acid Last Dose Time 1700 Current Medications: Meds: Laboratory Tests Test 06/08/21 10:30 White Blood Count 5.4 x10^3/uL Red Blood Count 4.87 x10^6/uL Hemoglobin 14.4 g/dL Hematocrit 43.8 % Mean Corpuscular Volume 90 fL Mean Corpuscular Hemoglobin 30 pg Mean Corpuscular Hemoglobin Concent 33 g/dL Red Cell Distribution Width 14.1 % Platelet Count 141 x10^3/uL Neutrophils (%) (Auto) 66 % Lymphocytes (%) (Auto) 20 % Monocytes (%) (Auto) 9 % Eosinophils (%) (Auto) 4 % Basophils (%) (Auto) 1 % Neutrophils # (Auto) 3.5 x10^3uL Lymphocytes # (Auto) 1.1 x10^3/uL Monocytes # (Auto) 0.5 x10^3/uL Eosinophils # (Auto) 0.2 x10^3/uL Basophils # (Auto) 0.0 x10^3/uL Sodium Level 147 mmol/L Potassium Level 3.6 mmol/L Chloride Level 112 mmol/L Carbon Dioxide Level 28 mmol/L Anion Gap 7 Blood Urea Nitrogen 16 mg/dL Creatinine 0.9 mg/dL Estimated GFR (Cockcroft-Gault) 82.9 BUN/Creatinine Ratio 18 Glucose Level 118 mg/dL Calcium Level 8.6 mg/dL Total Bilirubin 0.6 mg/dL Aspartate Amino Transf (AST/SGOT) 14 U/L Alanine Aminotransferase (ALT/SGPT) 7 U/L Alkaline Phosphatase 77 U/L Total Protein 6.3 g/dL Albumin 3.0 g/dL Albumin/Globulin Ratio 0.9 Valproic Acid (Depakene) Level 32 mcg/mL Valproic Acid Last Dose Date 06/07/21 Valproic Acid Last Dose Time 1700 Current Medications Medications (Trade) Dose Ordered Sig/Altaf Route PRN Reason Start Time Stop Time Status Last Admin Dose Admin Acetaminophen (Tylenol) 650 mg PRN Q6HRS PRN PO MILD PAIN / TEMP > 100.3'F 05/30/21 13:00 Multi-Ingredient Ointment (Analgesic [place]) 1 abdi PRN QID PRN TP MUSCLE PAIN 05/30/21 13:00 Al Hydroxide/Mg Hydroxide (Mylanta Plus Xs) 15 ml PRN AFTMEALHC PRN PO DYSPEPSIA 05/30/21 13:00 Magnesium Hydroxide (Milk Of Magnesia) 2,400 mg PRN QHS PRN PO 3RD CHOICE CONSTIPATION 05/30/21 13:00 Alprazolam (Xanax) 0.5 mg PRN Q8HRS PRN PO ANXIETY 05/30/21 13:15 06/04/21 16:24 DC 06/04/21 13:23 Carbidopa/Levodopa (Sinemet 25/100) 1 tab 5XDAY PO 05/30/21 14:00 06/09/21 04:59 Vitamin D (Vitamin D3) 2,000 unit DAILY PO 05/31/21 09:00 06/08/21 08:42 Cyclobenzaprine HCl (Flexeril) 10 mg PRN Q8HRS PRN PO MUSCLE SPASMS 05/30/21 13:15 Docusate Sodium (Colace) 100 mg PRN DAILY PRN PO 1ST CHOICE CONSTIPATION 05/30/21 13:15 Duloxetine HCl (Cymbalta) 60 mg DAILY PO 05/31/21 09:00 06/08/21 08:43 Albuterol/ Ipratropium (Combivent Respimat 20-100 Mcg) 1 puff PRN TID PRN INH SHORTNESS OF BREATH 05/30/21 14:00 Memantine (Namenda) 5 mg BID PO 05/30/21 21:00 06/03/21 23:30 DC 06/03/21 20:42 Ondansetron HCl (Zofran Odt) 4 mg PRN Q4HRS PRN PO 1ST CHOICE NAUSEA/VOMITING 05/30/21 13:15 Polyethylene Glycol (miraLAX) 17 gm PRN DAILY PRN PO 2ND CHOICE CONSTIPATION 05/30/21 13:15 Promethazine HCl (Phenergan Supp) 25 mg PRN Q4HRS PRN RC 2ND CHOICE NAUSEA 05/30/21 13:15 Alendronate Sodium (Fosamax) 70 mg WEEKLY@0600 PO 05/31/21 06:00 05/30/21 22:18 DC Albuterol Sulfate (Ventolin Hfa Inhaler) 1 puff RTQID INH 05/30/21 16:00 06/08/21 17:22 Calcium Carbonate/ Glycine (Tums) 500 mg TID PRN PRN PO HEARTBURN / GAS 05/30/21 14:00 Throat Lozenges (Cepacol Sore Throat Lozenge) 1 linnette PRN Q2HR PRN PO COUGH 05/30/21 14:00 Pregabalin (Lyrica) 100 mg BID PO 05/30/21 21:00 06/08/21 19:46 Alendronate Sodium (Fosamax) 70 mg Sa PO 05/31/21 06:00 06/07/21 04:58 Mirtazapine (Remeron) 7.5 mg QHS PO 05/31/21 21:00 06/08/21 19:46 Divalproex Sodium (Depakote Sprinkles) 125 mg 0900,1700 PO 06/01/21 17:00 06/04/21 16:24 DC 06/04/21 08:01 Divalproex Sodium (Depakote Sprinkles) 250 mg 0900,1700 PO 06/04/21 17:00 06/08/21 17:21 Olanzapine (ZyPREXA ZYDIS) 2.5 mg PRN Q2HR PRN PO PSYCHOSIS 06/04/21 16:30 06/08/21 20:58 Trazodone HCl (Desyrel) 50 mg PRN QHS PRN PO INSOMNIA 06/06/21 20:30 06/08/21 19:46 I have reviewed the current psychotropics carefully including drug interactions. Risk benefit ratio favors no change other than as noted in my dictated progress note. Diagnosis: Problems: (1) Major neurocognitive disorder (2) Impulse control disorder, unspecified (3) Anxiety disorder, unspecified (4) Dementia, vascular, with depression (5) Dementia, vascular, with delusions (6) Dementia in Alzheimer's disease with depression (7) Dementia in Alzheimer's disease with delusions (8) Dementia of the Alzheimer's type with early onset with behavioral disturbance RENEE RAINEY MD Jun 09, 2021 06:48
--- NOTE | 2021-06-09 06:59 | PDOC ---
Exam Note: Hank Note: This note is a late entry for 06/08/2021 covers elements not covered in my initial note. Subjective: The patient was seen face to face in the evening of 06/08/2021 with Micheline SAM, discussed and reviewed the chart. The patient slept 7-3/4 hours previous night. He has been confused without his meds at times, pacing at times. He is not agitated. I met with him in the hallway. He was confused, looking for his room and I walked with him to show him his room. He was able to read his name Silver, written outside his room and was able to verbalize I am Silver. I reassured him that this was his room and nursing staff intervened after this. Review of Systems: No CV, pulmonary, eye, ENT system symptoms on review. Reliability poor. Mental Status Exam: The patient is oriented to himself. Insight and judgment, recent and remote memory, attention and concentration, fund of knowledge is poor consistent with his diagnoses. Laboratory Data: Reviewed. Impression: Major neurocognitive disorder Alzheimer, vascular with delusion, depression, behavioral disturbance. Anxiety disorder unspecified. Impulse control disorder unspecified. Plan: Continue current psychotropics unchanged. Assessment: Vital Signs/I&O: Vital Signs Date Time Temp Pulse Resp B/P (MAP) Pulse Ox O2 Delivery O2 Flow Rate FiO2 06/09/21 06:22 97.4 73 16 111/74 (86) 92 Room Air I & O 06/08/21 06/08/21 06/09/21 14:59 22:59 06:59 Intake Total 240 ml 240 ml 120 ml Balance 240 ml 240 ml 120 ml Labs: Laboratory Tests Test 06/08/21 10:30 White Blood Count 5.4 x10^3/uL (4.0-11.0) Red Blood Count 4.87 x10^6/uL (4.30-5.70) Hemoglobin 14.4 g/dL (13.0-17.5) Hematocrit 43.8 % (39.0-53.0) Mean Corpuscular Volume 90 fL (79-100) Mean Corpuscular Hemoglobin 30 pg (25-35) Mean Corpuscular Hemoglobin Concent 33 g/dL (31-37) Red Cell Distribution Width 14.1 % (11.5-14.5) Platelet Count 141 x10^3/uL (140-400) Neutrophils (%) (Auto) 66 % (31-73) Lymphocytes (%) (Auto) 20 % (24-48) L Monocytes (%) (Auto) 9 % (0-9) Eosinophils (%) (Auto) 4 % (0-3) H Basophils (%) (Auto) 1 % (0-3) Neutrophils # (Auto) 3.5 x10^3uL (1.8-7.7) Lymphocytes # (Auto) 1.1 x10^3/uL (1.0-4.8) Monocytes # (Auto) 0.5 x10^3/uL (0.0-1.1) Eosinophils # (Auto) 0.2 x10^3/uL (0.0-0.7) Basophils # (Auto) 0.0 x10^3/uL (0.0-0.2) Sodium Level 147 mmol/L (136-145) H Potassium Level 3.6 mmol/L (3.5-5.1) Chloride Level 112 mmol/L (98-107) H Carbon Dioxide Level 28 mmol/L (21-32) Anion Gap 7 (6-14) Blood Urea Nitrogen 16 mg/dL (8-26) Creatinine 0.9 mg/dL (0.7-1.3) Estimated GFR (Cockcroft-Gault) 82.9 BUN/Creatinine Ratio 18 (6-20) Glucose Level 118 mg/dL (70-99) H Calcium Level 8.6 mg/dL (8.5-10.1) Total Bilirubin 0.6 mg/dL (0.2-1.0) Aspartate Amino Transferase (AST) 14 U/L (15-37) L Alanine Aminotransferase (ALT) 7 U/L (16-63) L Alkaline Phosphatase 77 U/L (46-116) Total Protein 6.3 g/dL (6.4-8.2) L Albumin 3.0 g/dL (3.4-5.0) L Albumin/Globulin Ratio 0.9 (1.0-1.7) L Valproic Acid Level 32 mcg/mL (50-100) L Valproic Acid Last Dose Date 06/07/21 Valproic Acid Last Dose Time 1700 Current Medications: Meds: Laboratory Tests Test 06/08/21 10:30 White Blood Count 5.4 x10^3/uL Red Blood Count 4.87 x10^6/uL Hemoglobin 14.4 g/dL Hematocrit 43.8 % Mean Corpuscular Volume 90 fL Mean Corpuscular Hemoglobin 30 pg Mean Corpuscular Hemoglobin Concent 33 g/dL Red Cell Distribution Width 14.1 % Platelet Count 141 x10^3/uL Neutrophils (%) (Auto) 66 % Lymphocytes (%) (Auto) 20 % Monocytes (%) (Auto) 9 % Eosinophils (%) (Auto) 4 % Basophils (%) (Auto) 1 % Neutrophils # (Auto) 3.5 x10^3uL Lymphocytes # (Auto) 1.1 x10^3/uL Monocytes # (Auto) 0.5 x10^3/uL Eosinophils # (Auto) 0.2 x10^3/uL Basophils # (Auto) 0.0 x10^3/uL Sodium Level 147 mmol/L Potassium Level 3.6 mmol/L Chloride Level 112 mmol/L Carbon Dioxide Level 28 mmol/L Anion Gap 7 Blood Urea Nitrogen 16 mg/dL Creatinine 0.9 mg/dL Estimated GFR (Cockcroft-Gault) 82.9 BUN/Creatinine Ratio 18 Glucose Level 118 mg/dL Calcium Level 8.6 mg/dL Total Bilirubin 0.6 mg/dL Aspartate Amino Transf (AST/SGOT) 14 U/L Alanine Aminotransferase (ALT/SGPT) 7 U/L Alkaline Phosphatase 77 U/L Total Protein 6.3 g/dL Albumin 3.0 g/dL Albumin/Globulin Ratio 0.9 Valproic Acid (Depakene) Level 32 mcg/mL Valproic Acid Last Dose Date 06/07/21 Valproic Acid Last Dose Time 1700 Current Medications Medications (Trade) Dose Ordered Sig/Altaf Route PRN Reason Start Time Stop Time Status Last Admin Dose Admin Acetaminophen (Tylenol) 650 mg PRN Q6HRS PRN PO MILD PAIN / TEMP > 100.3'F 05/30/21 13:00 Multi-Ingredient Ointment (Analgesic [place]) 1 abdi PRN QID PRN TP MUSCLE PAIN 05/30/21 13:00 Al Hydroxide/Mg Hydroxide (Mylanta Plus Xs) 15 ml PRN AFTMEALHC PRN PO DYSPEPSIA 05/30/21 13:00 Magnesium Hydroxide (Milk Of Magnesia) 2,400 mg PRN QHS PRN PO 3RD CHOICE CONSTIPATION 05/30/21 13:00 Alprazolam (Xanax) 0.5 mg PRN Q8HRS PRN PO ANXIETY 05/30/21 13:15 06/04/21 16:24 DC 06/04/21 13:23 Carbidopa/Levodopa (Sinemet 25/100) 1 tab 5XDAY PO 05/30/21 14:00 06/09/21 04:59 Vitamin D (Vitamin D3) 2,000 unit DAILY PO 05/31/21 09:00 06/08/21 08:42 Cyclobenzaprine HCl (Flexeril) 10 mg PRN Q8HRS PRN PO MUSCLE SPASMS 05/30/21 13:15 Docusate Sodium (Colace) 100 mg PRN DAILY PRN PO 1ST CHOICE CONSTIPATION 05/30/21 13:15 Duloxetine HCl (Cymbalta) 60 mg DAILY PO 05/31/21 09:00 06/08/21 08:43 Albuterol/ Ipratropium (Combivent Respimat 20-100 Mcg) 1 puff PRN TID PRN INH SHORTNESS OF BREATH 05/30/21 14:00 Memantine (Namenda) 5 mg BID PO 05/30/21 21:00 06/03/21 23:30 DC 06/03/21 20:42 Ondansetron HCl (Zofran Odt) 4 mg PRN Q4HRS PRN PO 1ST CHOICE NAUSEA/VOMITING 05/30/21 13:15 Polyethylene Glycol (miraLAX) 17 gm PRN DAILY PRN PO 2ND CHOICE CONSTIPATION 05/30/21 13:15 Promethazine HCl (Phenergan Supp) 25 mg PRN Q4HRS PRN RC 2ND CHOICE NAUSEA 05/30/21 13:15 Alendronate Sodium (Fosamax) 70 mg WEEKLY@0600 PO 05/31/21 06:00 05/30/21 22:18 DC Albuterol Sulfate (Ventolin Hfa Inhaler) 1 puff RTQID INH 05/30/21 16:00 06/08/21 17:22 Calcium Carbonate/ Glycine (Tums) 500 mg TID PRN PRN PO HEARTBURN / GAS 05/30/21 14:00 Throat Lozenges (Cepacol Sore Throat Lozenge) 1 linnette PRN Q2HR PRN PO COUGH 05/30/21 14:00 Pregabalin (Lyrica) 100 mg BID PO 05/30/21 21:00 06/08/21 19:46 Alendronate Sodium (Fosamax) 70 mg Sa PO 05/31/21 06:00 06/07/21 04:58 Mirtazapine (Remeron) 7.5 mg QHS PO 05/31/21 21:00 06/08/21 19:46 Divalproex Sodium (Depakote Sprinkles) 125 mg 0900,1700 PO 06/01/21 17:00 06/04/21 16:24 DC 06/04/21 08:01 Divalproex Sodium (Depakote Sprinkles) 250 mg 0900,1700 PO 06/04/21 17:00 06/08/21 17:21 Olanzapine (ZyPREXA ZYDIS) 2.5 mg PRN Q2HR PRN PO PSYCHOSIS 06/04/21 16:30 06/08/21 20:58 Trazodone HCl (Desyrel) 50 mg PRN QHS PRN PO INSOMNIA 06/06/21 20:30 06/08/21 19:46 I have reviewed the current psychotropics carefully including drug interactions. Risk benefit ratio favors no change other than as noted in my dictated progress note. Diagnosis: Problems: (1) Major neurocognitive disorder (2) Impulse control disorder, unspecified (3) Anxiety disorder, unspecified (4) Dementia, vascular, with depression (5) Dementia, vascular, with delusions (6) Dementia in Alzheimer's disease with depression (7) Dementia in Alzheimer's disease with delusions (8) Dementia of the Alzheimer's type with early onset with behavioral disturbance RENEE RAINEY MD Jun 09, 2021 06:59
[2021-06-09] MEDS: PREGABALIN 50 MG CAPSULE PO SCH ×2 (08:25→19:49)
[2021-06-09] MEDS: ALBUTEROL SULFATE 8GM INHALER. INH SCH ×4 (08:25→19:49)
[2021-06-09] MEDS: DULoxetine HCL 60 MG CAPSULE.DR PO SCH (08:26)
[2021-06-09] MEDS: DIVALPROEX 125 MG CAP.SPRINK PO SCH ×2 (08:26→17:18)
[2021-06-09] MEDS: CHOLECALCIFEROL (VITAMIN D3) 1,000 UNIT TABLET PO SCH (08:26)
--- NOTE | 2021-06-09 11:27 | NUR ---
Nurse Note Patient trying to sit on arm of chair almost sitting on floor, when redirected by nurse and financial legal assistant patient began to cuss at us. patient continue to be redirected. Patient stepped to his right side lost his footing and fell on right side. Patient has a skin tear to the right arm, skin tear is 3x1 with quarter size bruising noted. Patient's has been notified about the fall, states " he has fallen before so this is not new" Physician notified of event with order to dress skin tear.
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
--- NOTE | 2021-06-09 14:53 | NUR ---
RONNIE faxed current notes, medication list, and labs to Sai at [facility] for review. Tentative d/c date around 06/17/21. Team meeting was held today, Laurel/LIBRA, participated by phone. Laurel will make telephone contact with Silver to see how he's doing.
[2021-06-09 15:24] VITALS: BP 144/88
[2021-06-09] MEDS: traZODone 50 MG TABLET. PO PRN (19:49)
[2021-06-09] MEDS: MIRTAZAPINE 7.5 MG TABLET. PO SCH (19:49)
--- NOTE | 2021-06-09 22:56 | NUR ---
Pt sitting in the hallway when approached. Pt restless and disorganized but calm and alert this evening. Pt able to recall fall this morning in the day room. Pt has also been delusional- looking for his cat. Pt cooperative with assessment and compliant with medications administered crushed in pudding. No agitation or aggression noted thus far this shift.
--- NOTE | 2021-06-09 22:59 | PDOC ---
Exam Note: Hank Note: Please also refer to the separate dictated note~for this date of service dictated separately.~Patient seen individually. Discussed the patient with Nursing staff reviewed the chart.~Reviewed interim history and current functioning. Reviewed vital signs,~Labs/ Radiology~and current medications noted below. Continue current treatment with the changes noted in the dictated addendum note Assessment: Vital Signs/I&O: Vital Signs Date Time Temp Pulse Resp B/P (MAP) Pulse Ox O2 Delivery O2 Flow Rate FiO2 06/09/21 15:24 98.3 52 16 144/88 (106) 97 06/09/21 06:22 Room Air I & O 06/08/21 06/08/21 06/09/21 14:59 22:59 06:59 Intake Total 240 ml 240 ml 120 ml Balance 240 ml 240 ml 120 ml Current Medications: Meds: Current Medications Medications (Trade) Dose Ordered Sig/Altaf Route PRN Reason Start Time Stop Time Status Last Admin Dose Admin Acetaminophen (Tylenol) 650 mg PRN Q6HRS PRN PO MILD PAIN / TEMP > 100.3'F 05/30/21 13:00 Multi-Ingredient Ointment (Analgesic [place]) 1 abdi PRN QID PRN TP MUSCLE PAIN 05/30/21 13:00 Al Hydroxide/Mg Hydroxide (Mylanta Plus Xs) 15 ml PRN AFTMEALHC PRN PO DYSPEPSIA 05/30/21 13:00 Magnesium Hydroxide (Milk Of Magnesia) 2,400 mg PRN QHS PRN PO 3RD CHOICE CONSTIPATION 05/30/21 13:00 Alprazolam (Xanax) 0.5 mg PRN Q8HRS PRN PO ANXIETY 05/30/21 13:15 06/04/21 16:24 DC 06/04/21 13:23 Carbidopa/Levodopa (Sinemet 25/100) 1 tab 5XDAY PO 05/30/21 14:00 06/09/21 19:49 Vitamin D (Vitamin D3) 2,000 unit DAILY PO 05/31/21 09:00 06/09/21 08:26 Cyclobenzaprine HCl (Flexeril) 10 mg PRN Q8HRS PRN PO MUSCLE SPASMS 05/30/21 13:15 Docusate Sodium (Colace) 100 mg PRN DAILY PRN PO 1ST CHOICE CONSTIPATION 05/30/21 13:15 Duloxetine HCl (Cymbalta) 60 mg DAILY PO 05/31/21 09:00 06/09/21 08:26 Albuterol/ Ipratropium (Combivent Respimat 20-100 Mcg) 1 puff PRN TID PRN INH SHORTNESS OF BREATH 05/30/21 14:00 Memantine (Namenda) 5 mg BID PO 05/30/21 21:00 06/03/21 23:30 DC 06/03/21 20:42 Ondansetron HCl (Zofran Odt) 4 mg PRN Q4HRS PRN PO 1ST CHOICE NAUSEA/VOMITING 05/30/21 13:15 Polyethylene Glycol (miraLAX) 17 gm PRN DAILY PRN PO 2ND CHOICE CONSTIPATION 05/30/21 13:15 Promethazine HCl (Phenergan Supp) 25 mg PRN Q4HRS PRN RC 2ND CHOICE NAUSEA 05/30/21 13:15 Alendronate Sodium (Fosamax) 70 mg WEEKLY@0600 PO 05/31/21 06:00 05/30/21 22:18 DC Albuterol Sulfate (Ventolin Hfa Inhaler) 1 puff RTQID INH 05/30/21 16:00 06/09/21 19:49 Calcium Carbonate/ Glycine (Tums) 500 mg TID PRN PRN PO HEARTBURN / GAS 05/30/21 14:00 Throat Lozenges (Cepacol Sore Throat Lozenge) 1 linnette PRN Q2HR PRN PO COUGH 05/30/21 14:00 Pregabalin (Lyrica) 100 mg BID PO 05/30/21 21:00 06/09/21 19:49 Alendronate Sodium (Fosamax) 70 mg Sa PO 05/31/21 06:00 06/07/21 04:58 Mirtazapine (Remeron) 7.5 mg QHS PO 05/31/21 21:00 06/09/21 19:49 Divalproex Sodium (Depakote Sprinkles) 125 mg 0900,1700 PO 06/01/21 17:00 06/04/21 16:24 DC 06/04/21 08:01 Divalproex Sodium (Depakote Sprinkles) 250 mg 0900,1700 PO 06/04/21 17:00 06/09/21 17:18 Olanzapine (ZyPREXA ZYDIS) 2.5 mg PRN Q2HR PRN PO PSYCHOSIS 06/04/21 16:30 06/08/21 20:58 Trazodone HCl (Desyrel) 50 mg PRN QHS PRN PO INSOMNIA 06/06/21 20:30 06/09/21 19:49 I have reviewed the current psychotropics carefully including drug interactions. Risk benefit ratio favors no change other than as noted in my dictated progress note. Diagnosis: Problems: (1) Major neurocognitive disorder (2) Impulse control disorder, unspecified (3) Anxiety disorder, unspecified (4) Dementia, vascular, with depression (5) Dementia, vascular, with delusions (6) Dementia in Alzheimer's disease with depression (7) Dementia in Alzheimer's disease with delusions (8) Dementia of the Alzheimer's type with early onset with behavioral disturbance RENEE RAINEY MD Jun 09, 2021 22:59
[2021-06-10] MEDS: CARBIDOPA/LEVODOPA 25/100MG TABLET PO SCH ×5 (05:50→19:36)
[2021-06-10 06:34] VITALS: BP 130/82
[2021-06-10] MEDS: CHOLECALCIFEROL (VITAMIN D3) 1,000 UNIT TABLET PO SCH (08:34)
[2021-06-10] MEDS: DULoxetine HCL 60 MG CAPSULE.DR PO SCH (08:34)
[2021-06-10] MEDS: ALBUTEROL SULFATE 8GM INHALER. INH SCH ×4 (08:34→19:36)
[2021-06-10] MEDS: DIVALPROEX 125 MG CAP.SPRINK PO SCH ×2 (08:34→17:14)
[2021-06-10] MEDS: PREGABALIN 50 MG CAPSULE PO SCH ×2 (08:34→19:36)
--- NOTE | 2021-06-10 09:06 | PDOC ---
Exam Note: Hank Note: This note is a late entry for 06/09/2021 covers elements not covered in my initial note. Subjective: The patient was reviewed at treatment team meeting individually in the morning on 06/09/2021 with Laine Sanchez, Chio Hurd (health care social worker), Zonia, activity therapy and Suze SAM, discussed and reviewed the chart. The patient slept 5-1/4 hours previous night. He has attended 2 groups in the past week. His Laurel attended the treatment team meeting. We had lengthy discussion about the patients diagnoses, progress, prognosis, and level of comfort having him return to the facility. The patient did have a fall this morning and injured his upper extremity, skin tears. Review of Systems: No CV, pulmonary, eye, ENT system symptoms on review. Mental Status Exam: The patient is oriented to himself and at times situation. Speech low in rate and rhythm, low in volume. Abstraction fair. Computation impaired. Language function intact. Attention span short. Mood and affect somewhat withdrawn. He was trying to bend over and potato picker some of the cooked crackers he had dropped onto the sofa. Laboratory Data: Reviewed. Impression: Major neurocognitive disorder Alzheimer, vascular with delusion, depression, behavioral disturbance. Anxiety disorder unspecified. Impulse control disorder unspecified. Plan: Continue current psychotropics unchanged. Adjust further as clinically indicated. Assessment: Vital Signs/I&O: Vital Signs Date Time Temp Pulse Resp B/P (MAP) Pulse Ox O2 Delivery O2 Flow Rate FiO2 06/10/21 06:34 98.9 64 18 130/82 (98) 98 06/09/21 06:22 Room Air I & O 06/09/21 06/09/21 06/10/21 14:59 22:59 06:59 Intake Total 240 ml 360 ml Balance 240 ml 360 ml Current Medications: Meds: Current Medications Medications (Trade) Dose Ordered Sig/Altaf Route PRN Reason Start Time Stop Time Status Last Admin Dose Admin Acetaminophen (Tylenol) 650 mg PRN Q6HRS PRN PO MILD PAIN / TEMP > 100.3'F 05/30/21 13:00 Multi-Ingredient Ointment (Analgesic [place]) 1 abdi PRN QID PRN TP MUSCLE PAIN 05/30/21 13:00 Al Hydroxide/Mg Hydroxide (Mylanta Plus Xs) 15 ml PRN AFTMEALHC PRN PO DYSPEPSIA 05/30/21 13:00 Magnesium Hydroxide (Milk Of Magnesia) 2,400 mg PRN QHS PRN PO 3RD CHOICE CONSTIPATION 05/30/21 13:00 Alprazolam (Xanax) 0.5 mg PRN Q8HRS PRN PO ANXIETY 05/30/21 13:15 06/04/21 16:24 DC 06/04/21 13:23 Carbidopa/Levodopa (Sinemet 25/100) 1 tab 5XDAY PO 05/30/21 14:00 06/10/21 05:50 Vitamin D (Vitamin D3) 2,000 unit DAILY PO 05/31/21 09:00 06/10/21 08:34 Cyclobenzaprine HCl (Flexeril) 10 mg PRN Q8HRS PRN PO MUSCLE SPASMS 05/30/21 13:15 Docusate Sodium (Colace) 100 mg PRN DAILY PRN PO 1ST CHOICE CONSTIPATION 05/30/21 13:15 Duloxetine HCl (Cymbalta) 60 mg DAILY PO 05/31/21 09:00 06/10/21 08:34 Albuterol/ Ipratropium (Combivent Respimat 20-100 Mcg) 1 puff PRN TID PRN INH SHORTNESS OF BREATH 05/30/21 14:00 Memantine (Namenda) 5 mg BID PO 05/30/21 21:00 06/03/21 23:30 DC 06/03/21 20:42 Ondansetron HCl (Zofran Odt) 4 mg PRN Q4HRS PRN PO 1ST CHOICE NAUSEA/VOMITING 05/30/21 13:15 Polyethylene Glycol (miraLAX) 17 gm PRN DAILY PRN PO 2ND CHOICE CONSTIPATION 05/30/21 13:15 Promethazine HCl (Phenergan Supp) 25 mg PRN Q4HRS PRN RC 2ND CHOICE NAUSEA 05/30/21 13:15 Alendronate Sodium (Fosamax) 70 mg WEEKLY@0600 PO 05/31/21 06:00 05/30/21 22:18 DC Albuterol Sulfate (Ventolin Hfa Inhaler) 1 puff RTQID INH 05/30/21 16:00 06/10/21 08:34 Calcium Carbonate/ Glycine (Tums) 500 mg TID PRN PRN PO HEARTBURN / GAS 05/30/21 14:00 Throat Lozenges (Cepacol Sore Throat Lozenge) 1 linnette PRN Q2HR PRN PO COUGH 05/30/21 14:00 Pregabalin (Lyrica) 100 mg BID PO 05/30/21 21:00 06/10/21 08:34 Alendronate Sodium (Fosamax) 70 mg Sa PO 05/31/21 06:00 06/07/21 04:58 Mirtazapine (Remeron) 7.5 mg QHS PO 05/31/21 21:00 06/09/21 19:49 Divalproex Sodium (Depakote Sprinkles) 125 mg 0900,1700 PO 06/01/21 17:00 06/04/21 16:24 DC 06/04/21 08:01 Divalproex Sodium (Depakote Sprinkles) 250 mg 0900,1700 PO 06/04/21 17:00 06/10/21 08:34 Olanzapine (ZyPREXA ZYDIS) 2.5 mg PRN Q2HR PRN PO PSYCHOSIS 06/04/21 16:30 06/08/21 20:58 Trazodone HCl (Desyrel) 50 mg PRN QHS PRN PO INSOMNIA 06/06/21 20:30 06/09/21 19:49 I have reviewed the current psychotropics carefully including drug interactions. Risk benefit ratio favors no change other than as noted in my dictated progress note. Diagnosis: Problems: (1) Major neurocognitive disorder (2) Impulse control disorder, unspecified (3) Anxiety disorder, unspecified (4) Dementia, vascular, with depression (5) Dementia, vascular, with delusions (6) Dementia in Alzheimer's disease with depression (7) Dementia in Alzheimer's disease with delusions (8) Dementia of the Alzheimer's type with early onset with behavioral disturbance RENEE RAINEY MD Jun 10, 2021 09:06
--- NOTE | 2021-06-10 14:53 | NUR ---
Nursing note: Pt in dining room at time of AM med pass and assessment. He is compliant with meds crushed in a bite of pudding and cooperative with assessment. He does not appear to be in any pain. Pt has been acting helpless this shift, refusing to stand up on his own and when assisted, he tries to sit back down where there are no chairs. He is currently sitting in a chair in the hallway. Will continue to monitor.
[2021-06-10 15:47] VITALS: BP 96/56
[2021-06-10 19:22] VITALS: BP 95/65
[2021-06-10] MEDS: NEOMYCIN/BACI/POLY/HC OPHTH OINTMENT 3.5GM TUBE. OU SCH (19:35)
[2021-06-10] MEDS: MIRTAZAPINE 7.5 MG TABLET. PO SCH (19:36)
--- NOTE | 2021-06-10 22:45 | PDOC ---
Exam Note: Hank Note: Please also refer to the separate dictated note~for this date of service dictated separately.~Patient seen individually. Discussed the patient with Nursing staff reviewed the chart.~Reviewed interim history and current functioning. Reviewed vital signs,~Labs/ Radiology~and current medications noted below. Continue current treatment with the changes noted in the dictated addendum note Assessment: Vital Signs/I&O: Vital Signs Date Time Temp Pulse Resp B/P (MAP) Pulse Ox O2 Delivery O2 Flow Rate FiO2 06/10/21 19:22 76 95/65 (75) 06/10/21 15:47 97.1 16 93 Room Air I & O 06/09/21 06/09/21 06/10/21 14:00 22:00 06:00 Intake Total 240 ml 360 ml Balance 240 ml 360 ml Current Medications: Meds: Current Medications Medications (Trade) Dose Ordered Sig/Altaf Route PRN Reason Start Time Stop Time Status Last Admin Dose Admin Acetaminophen (Tylenol) 650 mg PRN Q6HRS PRN PO MILD PAIN / TEMP > 100.3'F 05/30/21 13:00 Multi-Ingredient Ointment (Analgesic [place]) 1 abdi PRN QID PRN TP MUSCLE PAIN 05/30/21 13:00 Al Hydroxide/Mg Hydroxide (Mylanta Plus Xs) 15 ml PRN AFTMEALHC PRN PO DYSPEPSIA 05/30/21 13:00 Magnesium Hydroxide (Milk Of Magnesia) 2,400 mg PRN QHS PRN PO 3RD CHOICE CONSTIPATION 05/30/21 13:00 Alprazolam (Xanax) 0.5 mg PRN Q8HRS PRN PO ANXIETY 05/30/21 13:15 06/04/21 16:24 DC 06/04/21 13:23 Carbidopa/Levodopa (Sinemet 25/100) 1 tab 5XDAY PO 05/30/21 14:00 06/10/21 19:36 Vitamin D (Vitamin D3) 2,000 unit DAILY PO 05/31/21 09:00 06/10/21 08:34 Cyclobenzaprine HCl (Flexeril) 10 mg PRN Q8HRS PRN PO MUSCLE SPASMS 05/30/21 13:15 Docusate Sodium (Colace) 100 mg PRN DAILY PRN PO 1ST CHOICE CONSTIPATION 05/30/21 13:15 Duloxetine HCl (Cymbalta) 60 mg DAILY PO 05/31/21 09:00 06/10/21 08:34 Albuterol/ Ipratropium (Combivent Respimat 20-100 Mcg) 1 puff PRN TID PRN INH SHORTNESS OF BREATH 05/30/21 14:00 Memantine (Namenda) 5 mg BID PO 05/30/21 21:00 06/03/21 23:30 DC 06/03/21 20:42 Ondansetron HCl (Zofran Odt) 4 mg PRN Q4HRS PRN PO 1ST CHOICE NAUSEA/VOMITING 05/30/21 13:15 Polyethylene Glycol (miraLAX) 17 gm PRN DAILY PRN PO 2ND CHOICE CONSTIPATION 05/30/21 13:15 Promethazine HCl (Phenergan Supp) 25 mg PRN Q4HRS PRN RC 2ND CHOICE NAUSEA 05/30/21 13:15 Alendronate Sodium (Fosamax) 70 mg WEEKLY@0600 PO 05/31/21 06:00 05/30/21 22:18 DC Albuterol Sulfate (Ventolin Hfa Inhaler) 1 puff RTQID INH 05/30/21 16:00 06/10/21 19:36 Calcium Carbonate/ Glycine (Tums) 500 mg TID PRN PRN PO HEARTBURN / GAS 05/30/21 14:00 Throat Lozenges (Cepacol Sore Throat Lozenge) 1 linnette PRN Q2HR PRN PO COUGH 05/30/21 14:00 Pregabalin (Lyrica) 100 mg BID PO 05/30/21 21:00 06/10/21 19:36 Alendronate Sodium (Fosamax) 70 mg Sa PO 05/31/21 06:00 06/07/21 04:58 Mirtazapine (Remeron) 7.5 mg QHS PO 05/31/21 21:00 06/10/21 19:36 Divalproex Sodium (Depakote Sprinkles) 125 mg 0900,1700 PO 06/01/21 17:00 06/04/21 16:24 DC 06/04/21 08:01 Divalproex Sodium (Depakote Sprinkles) 250 mg 0900,1700 PO 06/04/21 17:00 06/10/21 17:14 Olanzapine (ZyPREXA ZYDIS) 2.5 mg PRN Q2HR PRN PO PSYCHOSIS 06/04/21 16:30 06/08/21 20:58 Trazodone HCl (Desyrel) 50 mg PRN QHS PRN PO INSOMNIA 06/06/21 20:30 06/09/21 19:49 Neomycin/ Polymyxin/Bacitr/ Hydrocort (Cortisporin Ophth) 2 abdi BID OU 06/10/21 21:00 06/13/21 23:00 06/10/21 19:35 Current Medications Medications (Trade) Dose Ordered Sig/Altaf Route PRN Reason Start Time Stop Time Status Last Admin Dose Admin Neomycin/ Polymyxin/Bacitr/ Hydrocort (Cortisporin Ophth) 2 abdi BID OU 06/10/21 21:00 06/13/21 23:00 06/10/21 19:35 I have reviewed the current psychotropics carefully including drug interactions. Risk benefit ratio favors no change other than as noted in my dictated progress note. Diagnosis: Problems: (1) Major neurocognitive disorder (2) Impulse control disorder, unspecified (3) Anxiety disorder, unspecified (4) Dementia, vascular, with depression (5) Dementia, vascular, with delusions (6) Dementia in Alzheimer's disease with depression (7) Dementia in Alzheimer's disease with delusions (8) Dementia of the Alzheimer's type with early onset with behavioral disturbance RENEE RAINEY MD Jun 10, 2021 22:45
--- NOTE | 2021-06-10 23:50 | NUR ---
Pt sitting in the hallway when approached. Pt disorganized, confused, and restless. Pt appears to have either increased weakness or is unwilling to stand and bear weight this evening when asked to do so, requiring staff assist x2 with mobility. This was discussed with Dr. Fonseca and new order to consult Dr. Solano for Parkinson's/weakness was received. Pt cooperative with assessment and compliant with medications administered crushed in pudding. No agitation, aggression, or SIB noted thus far this shift.
[2021-06-11] MEDS: CARBIDOPA/LEVODOPA 25/100MG TABLET PO SCH ×5 (06:20→21:00)
[2021-06-11 06:33] VITALS: BP 132/82
[2021-06-11] MEDS: NEOMYCIN/BACI/POLY/HC OPHTH OINTMENT 3.5GM TUBE. OU SCH ×2 (07:54→21:00)
[2021-06-11] MEDS: ALBUTEROL SULFATE 8GM INHALER. INH SCH ×4 (07:55→21:00)
[2021-06-11] MEDS: DIVALPROEX 125 MG CAP.SPRINK PO SCH ×2 (07:58→17:28)
[2021-06-11] MEDS: DULoxetine HCL 60 MG CAPSULE.DR PO SCH (07:58)
[2021-06-11] MEDS: PREGABALIN 50 MG CAPSULE PO SCH ×2 (07:58→21:00)
[2021-06-11] MEDS: CHOLECALCIFEROL (VITAMIN D3) 1,000 UNIT TABLET PO SCH (07:58)
--- NOTE | 2021-06-11 12:43 | NUR ---
Nursing note: Pt in dining room at time of AM med pass and assessment. He is pleasant, compliant with meds crushed in pudding and cooperative with assessment. He does not appear to be in any pain. Pt has made comments this shift about "going down to [place]" and "where are the cats?" He is currently sitting in the dining room eating lunch. Will continue to monitor.
[2021-06-11 15:26] VITALS: BP 108/73
[2021-06-11] MEDS: MIRTAZAPINE 7.5 MG TABLET. PO SCH (21:00)
--- NOTE | 2021-06-11 21:54 | PDOC ---
Exam Note: Hank Note: Please also refer to the separate dictated note~for this date of service dictated separately.~Patient seen individually. Discussed the patient with Nursing staff reviewed the chart.~Reviewed interim history and current functioning. Reviewed vital signs,~Labs/ Radiology~and current medications noted below. Continue current treatment with the changes noted in the dictated addendum note Assessment: Vital Signs/I&O: Vital Signs Date Time Temp Pulse Resp B/P (MAP) Pulse Ox O2 Delivery O2 Flow Rate FiO2 06/11/21 15:26 97.9 69 20 108/73 (85) 98 06/10/21 15:47 Room Air I & O 06/10/21 06/10/21 06/11/21 14:00 22:00 06:00 Intake Total 500 ml 150 ml 120 ml Balance 500 ml 150 ml 120 ml Labs: Laboratory Tests Test 06/11/21 05:49 SARS-CoV-2 (PCR) Negative (NEGATIVE) Current Medications: Meds: Laboratory Tests Test 06/11/21 05:49 Coronavirus (COVID-19)(PCR) Negative Current Medications Medications (Trade) Dose Ordered Sig/Altaf Route PRN Reason Start Time Stop Time Status Last Admin Dose Admin Acetaminophen (Tylenol) 650 mg PRN Q6HRS PRN PO MILD PAIN / TEMP > 100.3'F 05/30/21 13:00 Multi-Ingredient Ointment (Analgesic [place]) 1 abdi PRN QID PRN TP MUSCLE PAIN 05/30/21 13:00 Al Hydroxide/Mg Hydroxide (Mylanta Plus Xs) 15 ml PRN AFTMEALHC PRN PO DYSPEPSIA 05/30/21 13:00 Magnesium Hydroxide (Milk Of Magnesia) 2,400 mg PRN QHS PRN PO 3RD CHOICE CONSTIPATION 05/30/21 13:00 Alprazolam (Xanax) 0.5 mg PRN Q8HRS PRN PO ANXIETY 05/30/21 13:15 06/04/21 16:24 DC 06/04/21 13:23 Carbidopa/Levodopa (Sinemet 25/100) 1 tab 5XDAY PO 05/30/21 14:00 06/11/21 21:00 Vitamin D (Vitamin D3) 2,000 unit DAILY PO 05/31/21 09:00 06/11/21 07:58 Cyclobenzaprine HCl (Flexeril) 10 mg PRN Q8HRS PRN PO MUSCLE SPASMS 05/30/21 13:15 Docusate Sodium (Colace) 100 mg PRN DAILY PRN PO 1ST CHOICE CONSTIPATION 05/30/21 13:15 Duloxetine HCl (Cymbalta) 60 mg DAILY PO 05/31/21 09:00 06/11/21 07:58 Albuterol/ Ipratropium (Combivent Respimat 20-100 Mcg) 1 puff PRN TID PRN INH SHORTNESS OF BREATH 05/30/21 14:00 Memantine (Namenda) 5 mg BID PO 05/30/21 21:00 06/03/21 23:30 DC 06/03/21 20:42 Ondansetron HCl (Zofran Odt) 4 mg PRN Q4HRS PRN PO 1ST CHOICE NAUSEA/VOMITING 05/30/21 13:15 Polyethylene Glycol (miraLAX) 17 gm PRN DAILY PRN PO 2ND CHOICE CONSTIPATION 05/30/21 13:15 Promethazine HCl (Phenergan Supp) 25 mg PRN Q4HRS PRN RC 2ND CHOICE NAUSEA 05/30/21 13:15 Alendronate Sodium (Fosamax) 70 mg WEEKLY@0600 PO 05/31/21 06:00 05/30/21 22:18 DC Albuterol Sulfate (Ventolin Hfa Inhaler) 1 puff RTQID INH 05/30/21 16:00 06/11/21 21:00 Calcium Carbonate/ Glycine (Tums) 500 mg TID PRN PRN PO HEARTBURN / GAS 05/30/21 14:00 Throat Lozenges (Cepacol Sore Throat Lozenge) 1 linnette PRN Q2HR PRN PO COUGH 05/30/21 14:00 Pregabalin (Lyrica) 100 mg BID PO 05/30/21 21:00 06/11/21 21:00 Alendronate Sodium (Fosamax) 70 mg Sa PO 05/31/21 06:00 06/07/21 04:58 Mirtazapine (Remeron) 7.5 mg QHS PO 05/31/21 21:00 06/11/21 21:00 Divalproex Sodium (Depakote Sprinkles) 125 mg 0900,1700 PO 06/01/21 17:00 06/04/21 16:24 DC 06/04/21 08:01 Divalproex Sodium (Depakote Sprinkles) 250 mg 0900,1700 PO 06/04/21 17:00 06/11/21 17:28 Olanzapine (ZyPREXA ZYDIS) 2.5 mg PRN Q2HR PRN PO PSYCHOSIS 06/04/21 16:30 06/08/21 20:58 Trazodone HCl (Desyrel) 50 mg PRN QHS PRN PO INSOMNIA 06/06/21 20:30 06/09/21 19:49 Neomycin/ Polymyxin/Bacitr/ Hydrocort (Cortisporin Ophth) 2 abdi BID OU 06/10/21 21:00 06/13/21 23:00 06/11/21 21:00 I have reviewed the current psychotropics carefully including drug interactions. Risk benefit ratio favors no change other than as noted in my dictated progress note. Diagnosis: Problems: (1) Major neurocognitive disorder (2) Impulse control disorder, unspecified (3) Anxiety disorder, unspecified (4) Dementia, vascular, with depression (5) Dementia, vascular, with delusions (6) Dementia in Alzheimer's disease with depression (7) Dementia in Alzheimer's disease with delusions (8) Dementia of the Alzheimer's type with early onset with behavioral disturbance RENEE RAINEY MD Jun 11, 2021 21:54
--- NOTE | 2021-06-11 22:22 | NUR ---
Patient was in his bed with his legs up over the side rail. He is disorganized, calm and med compliant. Patient took medications crushed in a bite of pudding. He was cooperative and interactive, his speech is often hard to understand because it's mumbly. Patients feet have edema and skin is hyperpigmented. He denied pain when asked.
[2021-06-12] MEDS: traZODone 50 MG TABLET. PO PRN (00:31)
--- NOTE | 2021-06-12 00:59 | NUR ---
Patient is awake in bed, laying with his legs up near the side of the railing. Patient denied pain when asked. PRN Trazodone given for insomnia per order. Patients face felt warm and appeared flushed, temperature was 98.7F when checked. Will continue to monitor.
[2021-06-12 05:15] VITALS: BP 100/62
[2021-06-12] MEDS: CARBIDOPA/LEVODOPA 25/100MG TABLET PO SCH ×5 (06:24→22:43)
[2021-06-12] MEDS: ALBUTEROL SULFATE 8GM INHALER. INH SCH ×4 (08:12→22:41)
[2021-06-12] MEDS: DULoxetine HCL 60 MG CAPSULE.DR PO SCH (08:13)
[2021-06-12] MEDS: PREGABALIN 50 MG CAPSULE PO SCH ×2 (08:13→22:42)
[2021-06-12] MEDS: DIVALPROEX 125 MG CAP.SPRINK PO SCH ×2 (08:13→17:10)
[2021-06-12] MEDS: CHOLECALCIFEROL (VITAMIN D3) 1,000 UNIT TABLET PO SCH (08:13)
[2021-06-12] MEDS: NEOMYCIN/BACI/POLY/HC OPHTH OINTMENT 3.5GM TUBE. OU SCH ×2 (08:20→22:41)
--- NOTE | 2021-06-12 12:15 | NUR ---
RONNIE returned call to [place], , and left detailed message with update including tentative d/c date of 06/17/21. Requested return call from [place] should she have additional questions.
--- NOTE | 2021-06-12 15:42 | NUR ---
Pt was up this morning and was in the dining martines for breakfast. He refused to eat much of anything and started to get irritated with staff when they tried to assist him with feeding. Pt was medication compliant. Pt put himself on the floor a few times today and was extremely resistant when staff tried to help him back up into a chair. Pt continues to be weak and if staff is helping him transfer or stand, he will put all of his weight onto staff and not help. Pt. does continue to walk and get in and out of bed and walk to the bathroom by himself when he chooses without assistance. Pt. has been up in chair since lunch and socializing with other patients.
[2021-06-12 16:13] VITALS: BP 98/65
--- NOTE | 2021-06-12 20:00 | NUR ---
Patient was sitting in chair near [facility] and was very unsteady, leaning forward and almost falling out of the chair. Staff assisted him to his room and he went to bed shortly after shift change. Patient has no s/s pain noted at this time. Spoke with Dr Fonseca regarding patients appetite decrease, ambulation changes and communication. Received order for CBC, CMP, UA.
--- NOTE | 2021-06-12 21:57 | PDOC ---
Exam Note: Ahnk Note: Please also refer to the separate dictated note~for this date of service dictated separately.~Patient seen individually. Discussed the patient with Nursing staff reviewed the chart.~Reviewed interim history and current functioning. Reviewed vital signs,~Labs/ Radiology~and current medications noted below. Continue current treatment with the changes noted in the dictated addendum note Assessment: Vital Signs/I&O: Vital Signs Date Time Temp Pulse Resp B/P (MAP) Pulse Ox O2 Delivery O2 Flow Rate FiO2 06/12/21 16:13 97.2 85 16 98/65 (76) 93 06/12/21 05:15 Room Air I & O 06/11/21 06/11/21 06/12/21 14:00 22:00 06:00 Intake Total 360 ml 320 ml Balance 360 ml 320 ml Current Medications: Meds: Current Medications Medications (Trade) Dose Ordered Sig/Altaf Route PRN Reason Start Time Stop Time Status Last Admin Dose Admin Acetaminophen (Tylenol) 650 mg PRN Q6HRS PRN PO MILD PAIN / TEMP > 100.3'F 05/30/21 13:00 Multi-Ingredient Ointment (Analgesic [place]) 1 abdi PRN QID PRN TP MUSCLE PAIN 05/30/21 13:00 Al Hydroxide/Mg Hydroxide (Mylanta Plus Xs) 15 ml PRN AFTMEALHC PRN PO DYSPEPSIA 05/30/21 13:00 Magnesium Hydroxide (Milk Of Magnesia) 2,400 mg PRN QHS PRN PO 3RD CHOICE CONSTIPATION 05/30/21 13:00 Alprazolam (Xanax) 0.5 mg PRN Q8HRS PRN PO ANXIETY 05/30/21 13:15 06/04/21 16:24 DC 06/04/21 13:23 Carbidopa/Levodopa (Sinemet 25/100) 1 tab 5XDAY PO 05/30/21 14:00 06/12/21 17:10 Vitamin D (Vitamin D3) 2,000 unit DAILY PO 05/31/21 09:00 06/12/21 08:13 Cyclobenzaprine HCl (Flexeril) 10 mg PRN Q8HRS PRN PO MUSCLE SPASMS 05/30/21 13:15 Docusate Sodium (Colace) 100 mg PRN DAILY PRN PO 1ST CHOICE CONSTIPATION 05/30/21 13:15 Duloxetine HCl (Cymbalta) 60 mg DAILY PO 05/31/21 09:00 06/12/21 08:13 Albuterol/ Ipratropium (Combivent Respimat 20-100 Mcg) 1 puff PRN TID PRN INH SHORTNESS OF BREATH 05/30/21 14:00 Memantine (Namenda) 5 mg BID PO 05/30/21 21:00 06/03/21 23:30 DC 06/03/21 20:42 Ondansetron HCl (Zofran Odt) 4 mg PRN Q4HRS PRN PO 1ST CHOICE NAUSEA/VOMITING 05/30/21 13:15 Polyethylene Glycol (miraLAX) 17 gm PRN DAILY PRN PO 2ND CHOICE CONSTIPATION 05/30/21 13:15 Promethazine HCl (Phenergan Supp) 25 mg PRN Q4HRS PRN RC 2ND CHOICE NAUSEA 05/30/21 13:15 Alendronate Sodium (Fosamax) 70 mg WEEKLY@0600 PO 05/31/21 06:00 05/30/21 22:18 DC Albuterol Sulfate (Ventolin Hfa Inhaler) 1 puff RTQID INH 05/30/21 16:00 06/12/21 17:10 Calcium Carbonate/ Glycine (Tums) 500 mg TID PRN PRN PO HEARTBURN / GAS 05/30/21 14:00 Throat Lozenges (Cepacol Sore Throat Lozenge) 1 linnette PRN Q2HR PRN PO COUGH 05/30/21 14:00 Pregabalin (Lyrica) 100 mg BID PO 05/30/21 21:00 06/12/21 08:13 Alendronate Sodium (Fosamax) 70 mg Sa PO 05/31/21 06:00 06/07/21 04:58 Mirtazapine (Remeron) 7.5 mg QHS PO 05/31/21 21:00 06/11/21 21:00 Divalproex Sodium (Depakote Sprinkles) 125 mg 0900,1700 PO 06/01/21 17:00 06/04/21 16:24 DC 06/04/21 08:01 Divalproex Sodium (Depakote Sprinkles) 250 mg 0900,1700 PO 06/04/21 17:00 06/12/21 17:10 Olanzapine (ZyPREXA ZYDIS) 2.5 mg PRN Q2HR PRN PO PSYCHOSIS 06/04/21 16:30 06/08/21 20:58 Trazodone HCl (Desyrel) 50 mg PRN QHS PRN PO INSOMNIA 06/06/21 20:30 06/12/21 00:31 Neomycin/ Polymyxin/Bacitr/ Hydrocort (Cortisporin Ophth) 2 abdi BID OU 06/10/21 21:00 06/13/21 23:00 06/12/21 08:20 I have reviewed the current psychotropics carefully including drug interactions. Risk benefit ratio favors no change other than as noted in my dictated progress note. Diagnosis: Problems: (1) Major neurocognitive disorder (2) Impulse control disorder, unspecified (3) Anxiety disorder, unspecified (4) Dementia, vascular, with depression (5) Dementia, vascular, with delusions (6) Dementia in Alzheimer's disease with depression (7) Dementia in Alzheimer's disease with delusions (8) Dementia of the Alzheimer's type with early onset with behavioral disturban RENEE Adames MD Jun 12, 2021 21:57
--- NOTE | 2021-06-12 21:57 | PDOC ---
Exam Note: Hank Note: This note is a late entry for 06/10/2021 covers elements not covered in my initial note. Subjective: The patient was seen face to face in the evening of 06/10/2021 with Heather SAM, discussed and reviewed the chart. The patient slept 7-1/2 hours previous night. He has been acting helpless, somewhat resistive to cares, being a weight. His Parkinsons seems to be affecting his movements significantly and we will consult Dr. Solano, Neurology to see if any changes need to be made to help with this. He has not had another fall however since the day before. Review of Systems: Impaired ambulation. No CV, pulmonary, eye, ENT system symptoms on review. Reliability poor. Mental Status Exam: The patient is oriented to himself and at times situation. Speech low in rate and rhythm, low in volume. Abstraction fair. Computation impaired. Language function intact. Attention span short. Mood and affect somewhat anxious, restless. Laboratory Data: Reviewed. Impression: Major neurocognitive disorder Alzheimer, vascular with delusion, depression, behavioral disturbance. Anxiety disorder unspecified. Impulse control disorder unspecified. Plan: Continue current psychotropics unchanged. Consult Dr. Solano, Neurology. We may adjust Cymbalta in due course. Assessment: Vital Signs/I&O: Vital Signs Date Time Temp Pulse Resp B/P (MAP) Pulse Ox O2 Delivery O2 Flow Rate FiO2 06/12/21 16:13 97.2 85 16 98/65 (76) 93 06/12/21 05:15 Room Air I & O 06/11/21 06/11/21 06/12/21 14:00 22:00 06:00 Intake Total 360 ml 320 ml Balance 360 ml 320 ml Current Medications: Meds: Current Medications Medications (Trade) Dose Ordered Sig/Altaf Route PRN Reason Start Time Stop Time Status Last Admin Dose Admin Acetaminophen (Tylenol) 650 mg PRN Q6HRS PRN PO MILD PAIN / TEMP > 100.3'F 05/30/21 13:00 Multi-Ingredient Ointment (Analgesic [place]) 1 abdi PRN QID PRN TP MUSCLE PAIN 05/30/21 13:00 Al Hydroxide/Mg Hydroxide (Mylanta Plus Xs) 15 ml PRN AFTMEALHC PRN PO DYSPEPSIA 05/30/21 13:00 Magnesium Hydroxide (Milk Of Magnesia) 2,400 mg PRN QHS PRN PO 3RD CHOICE CONSTIPATION 05/30/21 13:00 Alprazolam (Xanax) 0.5 mg PRN Q8HRS PRN PO ANXIETY 05/30/21 13:15 06/04/21 16:24 DC 06/04/21 13:23 Carbidopa/Levodopa (Sinemet 25/100) 1 tab 5XDAY PO 05/30/21 14:00 06/12/21 17:10 Vitamin D (Vitamin D3) 2,000 unit DAILY PO 05/31/21 09:00 06/12/21 08:13 Cyclobenzaprine HCl (Flexeril) 10 mg PRN Q8HRS PRN PO MUSCLE SPASMS 05/30/21 13:15 Docusate Sodium (Colace) 100 mg PRN DAILY PRN PO 1ST CHOICE CONSTIPATION 05/30/21 13:15 Duloxetine HCl (Cymbalta) 60 mg DAILY PO 05/31/21 09:00 06/12/21 08:13 Albuterol/ Ipratropium (Combivent Respimat 20-100 Mcg) 1 puff PRN TID PRN INH SHORTNESS OF BREATH 05/30/21 14:00 Memantine (Namenda) 5 mg BID PO 05/30/21 21:00 06/03/21 23:30 DC 06/03/21 20:42 Ondansetron HCl (Zofran Odt) 4 mg PRN Q4HRS PRN PO 1ST CHOICE NAUSEA/VOMITING 05/30/21 13:15 Polyethylene Glycol (miraLAX) 17 gm PRN DAILY PRN PO 2ND CHOICE CONSTIPATION 05/30/21 13:15 Promethazine HCl (Phenergan Supp) 25 mg PRN Q4HRS PRN RC 2ND CHOICE NAUSEA 05/30/21 13:15 Alendronate Sodium (Fosamax) 70 mg WEEKLY@0600 PO 05/31/21 06:00 05/30/21 22:18 DC Albuterol Sulfate (Ventolin Hfa Inhaler) 1 puff RTQID INH 05/30/21 16:00 06/12/21 17:10 Calcium Carbonate/ Glycine (Tums) 500 mg TID PRN PRN PO HEARTBURN / GAS 05/30/21 14:00 Throat Lozenges (Cepacol Sore Throat Lozenge) 1 linnette PRN Q2HR PRN PO COUGH 05/30/21 14:00 Pregabalin (Lyrica) 100 mg BID PO 05/30/21 21:00 06/12/21 08:13 Alendronate Sodium (Fosamax) 70 mg Sa PO 05/31/21 06:00 06/07/21 04:58 Mirtazapine (Remeron) 7.5 mg QHS PO 05/31/21 21:00 06/11/21 21:00 Divalproex Sodium (Depakote Sprinkles) 125 mg 0900,1700 PO 06/01/21 17:00 06/04/21 16:24 DC 06/04/21 08:01 Divalproex Sodium (Depakote Sprinkles) 250 mg 0900,1700 PO 06/04/21 17:00 06/12/21 17:10 Olanzapine (ZyPREXA ZYDIS) 2.5 mg PRN Q2HR PRN PO PSYCHOSIS 06/04/21 16:30 06/08/21 20:58 Trazodone HCl (Desyrel) 50 mg PRN QHS PRN PO INSOMNIA 06/06/21 20:30 06/12/21 00:31 Neomycin/ Polymyxin/Bacitr/ Hydrocort (Cortisporin Ophth) 2 abdi BID OU 06/10/21 21:00 06/13/21 23:00 06/12/21 08:20 I have reviewed the current psychotropics carefully including drug interactions. Risk benefit ratio favors no change other than as noted in my dictated progress note. Diagnosis: Problems: (1) Major neurocognitive disorder (2) Impulse control disorder, unspecified (3) Anxiety disorder, unspecified (4) Dementia, vascular, with depression (5) Dementia, vascular, with delusions (6) Dementia in Alzheimer's disease with depression (7) Dementia in Alzheimer's disease with delusions (8) Dementia of the Alzheimer's type with early onset with behavioral disturban RENEE Adames MD Jun 12, 2021 21:57
[2021-06-12] MEDS: MIRTAZAPINE 7.5 MG TABLET. PO SCH (22:42)
--- NOTE | 2021-06-12 22:43 | NUR ---
Patient sleeping very soundly. He does not appear to be in any discomfort or pain at this time. Nurse attempted to wake patient up for HS medications, he is not sitting up to take them. Medications held at this time as they cannot be safely administered at this time d/t patient sleeping. Will continue to monitor. Will give HS medications if patient wakes up later tonight.
[2021-06-13 06:01] VITALS: BP 120/83
[2021-06-13] MEDS: CARBIDOPA/LEVODOPA 25/100MG TABLET PO SCH ×5 (06:26→20:07)
[2021-06-13 06:37] LABS: BASO # 0.1 x10^3/uL (0.0-0.2); BASO % 2 % (0-3); EOS # 0.1 x10^3/uL (0.0-0.7); EOS % 1 % (0-3); HEMATOCRIT 44.9 % (39.0-53.0); HEMOGLOBIN 14.7 g/dL (13.0-17.5); LYMPH # 1.8 x10^3/uL (1.0-4.8); LYMPH % 24 % (24-48); MEAN CORPUSCULAR HEMOGLOBIN 29 pg (25-35); MEAN CORPUSCULAR HGB CONC 33 g/dL (31-37); MEAN CORPUSCULAR VOLUME 90 fL (79-100); MONO # 0.8 x10^3/uL (0.0-1.1); MONO % 10 % (0-9); NEUT # 4.8 x10^3uL (1.8-7.7); NEUT % 63 % (31-73); PLATELET COUNT 158 x10^3/uL (140-400); RED BLOOD COUNT 4.99 x10^6/uL (4.30-5.70); RED CELL DISTRIBUTION WIDTH 14.4 % (11.5-14.5); WHITE BLOOD COUNT 7.6 x10^3/uL (4.0-11.0)
[2021-06-13 06:55] LABS: ALBUMIN 3.1 g/dL (3.4-5.0); ALBUMIN/GLOBULIN RATIO 0.9 (1.0-1.7); CALCIUM 8.3 mg/dL (8.5-10.1); CREATININE 1.1 mg/dL (0.7-1.3); GFR 65.8; POTASSIUM 3.9 mmol/L (3.5-5.1); TOTAL PROTEIN 6.7 g/dL (6.4-8.2)
[2021-06-13] MEDS: PREGABALIN 50 MG CAPSULE PO SCH ×2 (08:27→20:08)
[2021-06-13] MEDS: DIVALPROEX 125 MG CAP.SPRINK PO SCH ×2 (08:27→17:12)
[2021-06-13] MEDS: DULoxetine HCL 60 MG CAPSULE.DR PO SCH (08:27)
[2021-06-13] MEDS: CHOLECALCIFEROL (VITAMIN D3) 1,000 UNIT TABLET PO SCH (08:28)
[2021-06-13] MEDS: ALBUTEROL SULFATE 8GM INHALER. INH SCH ×4 (08:28→20:08)
[2021-06-13] MEDS: NEOMYCIN/BACI/POLY/HC OPHTH OINTMENT 3.5GM TUBE. OU SCH ×2 (08:28→20:08)
--- NOTE | 2021-06-13 08:32 | PDOC ---
Exam Note: Hank Note: This note is a late entry for 06/11/2021 covers elements not covered in my initial note. Subjective: The patient was seen face to face in the evening of 06/11/2021 with Tiff SAM, discussed and reviewed the chart. The patient slept 7-1/4 hours previous night. Reportedly the patient has been same as yesterday per nursing staff. He has been putting himself on the floor, less often somewhat withdrawn. He walks in a hunched manner, makes random comments where does he need to go to eat and that he is going to [place]. Also discussed with Adele SAM in t he evening. He ate no breakfast, slept through lunch, leaning forward, not opening his mouth to eat. He urinated in his bed. We are waiting Neurology consult per Dr. Solano for his Parkinsons management. Review of Systems: Impaired ambulation. No CV, pulmonary, eye, ENT system symptoms on review. Reliability poor. Mental Status Exam: The patient is oriented to himself. Insight and judgment, recent and remote memory, attention and concentration, fund of knowledge is poor with consistent with his diagnoses. Laboratory Data: Reviewed. Impression: Major depressive disorder recurrent. 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 Anxiety disorder unspecified. Impulse control disorder unspecified. Plan: Continue current psychotropics unchanged. Await Neurology consult. Adjust psychotropics further as clinically indicated. Assessment: Vital Signs/I&O: Vital Signs Date Time Temp Pulse Resp B/P (MAP) Pulse Ox O2 Delivery O2 Flow Rate FiO2 06/13/21 06:01 97.6 114 18 120/83 (95) 87 Room Air I & O 06/12/21 06/12/21 06/13/21 14:00 22:00 06:00 Intake Total 60 ml 60 ml Balance 60 ml 60 ml Labs: Laboratory Tests Test 06/13/21 06:20 White Blood Count 7.6 x10^3/uL (4.0-11.0) Red Blood Count 4.99 x10^6/uL (4.30-5.70) Hemoglobin 14.7 g/dL (13.0-17.5) Hematocrit 44.9 % (39.0-53.0) Mean Corpuscular Volume 90 fL (79-100) Mean Corpuscular Hemoglobin 29 pg (25-35) Mean Corpuscular Hemoglobin Concent 33 g/dL (31-37) Red Cell Distribution Width 14.4 % (11.5-14.5) Platelet Count 158 x10^3/uL (140-400) Neutrophils (%) (Auto) 63 % (31-73) Lymphocytes (%) (Auto) 24 % (24-48) Monocytes (%) (Auto) 10 % (0-9) H Eosinophils (%) (Auto) 1 % (0-3) Basophils (%) (Auto) 2 % (0-3) Neutrophils # (Auto) 4.8 x10^3uL (1.8-7.7) Lymphocytes # (Auto) 1.8 x10^3/uL (1.0-4.8) Monocytes # (Auto) 0.8 x10^3/uL (0.0-1.1) Eosinophils # (Auto) 0.1 x10^3/uL (0.0-0.7) Basophils # (Auto) 0.1 x10^3/uL (0.0-0.2) Sodium Level 147 mmol/L (136-145) H Potassium Level 3.9 mmol/L (3.5-5.1) Chloride Level 112 mmol/L (98-107) H Carbon Dioxide Level 27 mmol/L (21-32) Anion Gap 8 (6-14) Blood Urea Nitrogen 25 mg/dL (8-26) Creatinine 1.1 mg/dL (0.7-1.3) Estimated GFR (Cockcroft-Gault) 65.8 BUN/Creatinine Ratio 23 (6-20) H Glucose Level 85 mg/dL (70-99) Calcium Level 8.3 mg/dL (8.5-10.1) L Total Bilirubin 1.0 mg/dL (0.2-1.0) Aspartate Amino Transferase (AST) 47 U/L (15-37) H Alanine Aminotransferase (ALT) 15 U/L (16-63) L Alkaline Phosphatase 77 U/L (46-116) Total Protein 6.7 g/dL (6.4-8.2) Albumin 3.1 g/dL (3.4-5.0) L Albumin/Globulin Ratio 0.9 (1.0-1.7) L Current Medications: Meds: Laboratory Tests Test 06/13/21 06:20 White Blood Count 7.6 x10^3/uL Red Blood Count 4.99 x10^6/uL Hemoglobin 14.7 g/dL Hematocrit 44.9 % Mean Corpuscular Volume 90 fL Mean Corpuscular Hemoglobin 29 pg Mean Corpuscular Hemoglobin Concent 33 g/dL Red Cell Distribution Width 14.4 % Platelet Count 158 x10^3/uL Neutrophils (%) (Auto) 63 % Lymphocytes (%) (Auto) 24 % Monocytes (%) (Auto) 10 % Eosinophils (%) (Auto) 1 % Basophils (%) (Auto) 2 % Neutrophils # (Auto) 4.8 x10^3uL Lymphocytes # (Auto) 1.8 x10^3/uL Monocytes # (Auto) 0.8 x10^3/uL Eosinophils # (Auto) 0.1 x10^3/uL Basophils # (Auto) 0.1 x10^3/uL Sodium Level 147 mmol/L Potassium Level 3.9 mmol/L Chloride Level 112 mmol/L Carbon Dioxide Level 27 mmol/L Anion Gap 8 Blood Urea Nitrogen 25 mg/dL Creatinine 1.1 mg/dL Estimated GFR (Cockcroft-Gault) 65.8 BUN/Creatinine Ratio 23 Glucose Level 85 mg/dL Calcium Level 8.3 mg/dL Total Bilirubin 1.0 mg/dL Aspartate Amino Transf (AST/SGOT) 47 U/L Alanine Aminotransferase (ALT/SGPT) 15 U/L Alkaline Phosphatase 77 U/L Total Protein 6.7 g/dL Albumin 3.1 g/dL Albumin/Globulin Ratio 0.9 Current Medications Medications (Trade) Dose Ordered Sig/Altaf Route PRN Reason Start Time Stop Time Status Last Admin Dose Admin Acetaminophen (Tylenol) 650 mg PRN Q6HRS PRN PO MILD PAIN / TEMP > 100.3'F 05/30/21 13:00 Multi-Ingredient Ointment (Analgesic [place]) 1 abdi PRN QID PRN TP MUSCLE PAIN 05/30/21 13:00 Al Hydroxide/Mg Hydroxide (Mylanta Plus Xs) 15 ml PRN AFTMEALHC PRN PO DYSPEPSIA 05/30/21 13:00 Magnesium Hydroxide (Milk Of Magnesia) 2,400 mg PRN QHS PRN PO 3RD CHOICE CONSTIPATION 05/30/21 13:00 Alprazolam (Xanax) 0.5 mg PRN Q8HRS PRN PO ANXIETY 05/30/21 13:15 06/04/21 16:24 DC 06/04/21 13:23 Carbidopa/Levodopa (Sinemet 25/100) 1 tab 5XDAY PO 05/30/21 14:00 06/13/21 08:27 Vitamin D (Vitamin D3) 2,000 unit DAILY PO 05/31/21 09:00 06/13/21 08:28 Cyclobenzaprine HCl (Flexeril) 10 mg PRN Q8HRS PRN PO MUSCLE SPASMS 05/30/21 13:15 Docusate Sodium (Colace) 100 mg PRN DAILY PRN PO 1ST CHOICE CONSTIPATION 05/30/21 13:15 Duloxetine HCl (Cymbalta) 60 mg DAILY PO 05/31/21 09:00 06/13/21 08:27 Albuterol/ Ipratropium (Combivent Respimat 20-100 Mcg) 1 puff PRN TID PRN INH SHORTNESS OF BREATH 05/30/21 14:00 Memantine (Namenda) 5 mg BID PO 05/30/21 21:00 06/03/21 23:30 DC 06/03/21 20:42 Ondansetron HCl (Zofran Odt) 4 mg PRN Q4HRS PRN PO 1ST CHOICE NAUSEA/VOMITING 05/30/21 13:15 Polyethylene Glycol (miraLAX) 17 gm PRN DAILY PRN PO 2ND CHOICE CONSTIPATION 05/30/21 13:15 Promethazine HCl (Phenergan Supp) 25 mg PRN Q4HRS PRN RC 2ND CHOICE NAUSEA 05/30/21 13:15 Alendronate Sodium (Fosamax) 70 mg WEEKLY@0600 PO 05/31/21 06:00 05/30/21 22:18 DC Albuterol Sulfate (Ventolin Hfa Inhaler) 1 puff RTQID INH 05/30/21 16:00 06/13/21 08:28 Calcium Carbonate/ Glycine (Tums) 500 mg TID PRN PRN PO HEARTBURN / GAS 05/30/21 14:00 Throat Lozenges (Cepacol Sore Throat Lozenge) 1 linnette PRN Q2HR PRN PO COUGH 05/30/21 14:00 Pregabalin (Lyrica) 100 mg BID PO 05/30/21 21:00 06/13/21 08:27 Alendronate Sodium (Fosamax) 70 mg Sa PO 05/31/21 06:00 06/07/21 04:58 Mirtazapine (Remeron) 7.5 mg QHS PO 05/31/21 21:00 06/11/21 21:00 Divalproex Sodium (Depakote Sprinkles) 125 mg 0900,1700 PO 06/01/21 17:00 06/04/21 16:24 DC 06/04/21 08:01 Divalproex Sodium (Depakote Sprinkles) 250 mg 0900,1700 PO 06/04/21 17:00 06/13/21 08:27 Olanzapine (ZyPREXA ZYDIS) 2.5 mg PRN Q2HR PRN PO PSYCHOSIS 06/04/21 16:30 06/08/21 20:58 Trazodone HCl (Desyrel) 50 mg PRN QHS PRN PO INSOMNIA 06/06/21 20:30 06/12/21 00:31 Neomycin/ Polymyxin/Bacitr/ Hydrocort (Cortisporin Ophth) 2 abdi BID OU 06/10/21 21:00 06/13/21 23:00 06/13/21 08:28 I have reviewed the current psychotropics carefully including drug interactions. Risk benefit ratio favors no change other than as noted in my dictated progress note. Diagnosis: Problems: (1) Major neurocognitive disorder (2) Impulse control disorder, unspecified (3) Anxiety disorder, unspecified (4) Dementia, vascular, with depression (5) Dementia, vascular, with delusions (6) Dementia in Alzheimer's disease with depression (7) Dementia in Alzheimer's disease with delusions (8) Dementia of the Alzheimer's type with early onset with behavioral disturbance RENEE RAINEY MD Jun 13, 2021 08:31
--- NOTE | 2021-06-13 09:12 | PDOC ---
Exam Note: Hank Note: This note is a late entry for 06/12/2021 covers elements not covered in my initial note. Subjective: The patient was seen face to face in the evening of 06/12/2021 with Hina SAM, discussed and reviewed the chart. The patient slept 4 hours previous night. He ate no breakfast, slept through lunch. Again leaning forward, not opening his mouth to eat. He urinated in his bed. Consult with Dr. Solano for adjustments in his meds for Parkinsons is awaited. Review of Systems: Impaired ambulation. No CV, pulmonary, eye, ENT system symptoms on review. Reliability poor. Mental Status Exam: The patient is oriented to himself and situation. Speech moderate to marked latency, low in rate and rhythm, low in volume. Abstraction fair. Computation impaired. Language function intact. Mood and affect withdrawn. Laboratory Data: Reviewed. Impression: Major depressive disorder recurrent. 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 Anxiety disorder unspecified. Impulse control disorder unspecified. Plan: No change from initial note. Assessment: Vital Signs/I&O: Vital Signs Date Time Temp Pulse Resp B/P (MAP) Pulse Ox O2 Delivery O2 Flow Rate FiO2 06/13/21 06:01 97.6 114 18 120/83 (95) 87 Room Air I & O 06/12/21 06/12/21 06/13/21 14:00 22:00 06:00 Intake Total 60 ml 60 ml Balance 60 ml 60 ml Labs: Laboratory Tests Test 06/13/21 06:20 White Blood Count 7.6 x10^3/uL (4.0-11.0) Red Blood Count 4.99 x10^6/uL (4.30-5.70) Hemoglobin 14.7 g/dL (13.0-17.5) Hematocrit 44.9 % (39.0-53.0) Mean Corpuscular Volume 90 fL (79-100) Mean Corpuscular Hemoglobin 29 pg (25-35) Mean Corpuscular Hemoglobin Concent 33 g/dL (31-37) Red Cell Distribution Width 14.4 % (11.5-14.5) Platelet Count 158 x10^3/uL (140-400) Neutrophils (%) (Auto) 63 % (31-73) Lymphocytes (%) (Auto) 24 % (24-48) Monocytes (%) (Auto) 10 % (0-9) H Eosinophils (%) (Auto) 1 % (0-3) Basophils (%) (Auto) 2 % (0-3) Neutrophils # (Auto) 4.8 x10^3uL (1.8-7.7) Lymphocytes # (Auto) 1.8 x10^3/uL (1.0-4.8) Monocytes # (Auto) 0.8 x10^3/uL (0.0-1.1) Eosinophils # (Auto) 0.1 x10^3/uL (0.0-0.7) Basophils # (Auto) 0.1 x10^3/uL (0.0-0.2) Sodium Level 147 mmol/L (136-145) H Potassium Level 3.9 mmol/L (3.5-5.1) Chloride Level 112 mmol/L (98-107) H Carbon Dioxide Level 27 mmol/L (21-32) Anion Gap 8 (6-14) Blood Urea Nitrogen 25 mg/dL (8-26) Creatinine 1.1 mg/dL (0.7-1.3) Estimated GFR (Cockcroft-Gault) 65.8 BUN/Creatinine Ratio 23 (6-20) H Glucose Level 85 mg/dL (70-99) Calcium Level 8.3 mg/dL (8.5-10.1) L Total Bilirubin 1.0 mg/dL (0.2-1.0) Aspartate Amino Transferase (AST) 47 U/L (15-37) H Alanine Aminotransferase (ALT) 15 U/L (16-63) L Alkaline Phosphatase 77 U/L (46-116) Total Protein 6.7 g/dL (6.4-8.2) Albumin 3.1 g/dL (3.4-5.0) L Albumin/Globulin Ratio 0.9 (1.0-1.7) L Current Medications: Meds: Laboratory Tests Test 06/13/21 06:20 White Blood Count 7.6 x10^3/uL Red Blood Count 4.99 x10^6/uL Hemoglobin 14.7 g/dL Hematocrit 44.9 % Mean Corpuscular Volume 90 fL Mean Corpuscular Hemoglobin 29 pg Mean Corpuscular Hemoglobin Concent 33 g/dL Red Cell Distribution Width 14.4 % Platelet Count 158 x10^3/uL Neutrophils (%) (Auto) 63 % Lymphocytes (%) (Auto) 24 % Monocytes (%) (Auto) 10 % Eosinophils (%) (Auto) 1 % Basophils (%) (Auto) 2 % Neutrophils # (Auto) 4.8 x10^3uL Lymphocytes # (Auto) 1.8 x10^3/uL Monocytes # (Auto) 0.8 x10^3/uL Eosinophils # (Auto) 0.1 x10^3/uL Basophils # (Auto) 0.1 x10^3/uL Sodium Level 147 mmol/L Potassium Level 3.9 mmol/L Chloride Level 112 mmol/L Carbon Dioxide Level 27 mmol/L Anion Gap 8 Blood Urea Nitrogen 25 mg/dL Creatinine 1.1 mg/dL Estimated GFR (Cockcroft-Gault) 65.8 BUN/Creatinine Ratio 23 Glucose Level 85 mg/dL Calcium Level 8.3 mg/dL Total Bilirubin 1.0 mg/dL Aspartate Amino Transf (AST/SGOT) 47 U/L Alanine Aminotransferase (ALT/SGPT) 15 U/L Alkaline Phosphatase 77 U/L Total Protein 6.7 g/dL Albumin 3.1 g/dL Albumin/Globulin Ratio 0.9 Current Medications Medications (Trade) Dose Ordered Sig/Altaf Route PRN Reason Start Time Stop Time Status Last Admin Dose Admin Acetaminophen (Tylenol) 650 mg PRN Q6HRS PRN PO MILD PAIN / TEMP > 100.3'F 05/30/21 13:00 Multi-Ingredient Ointment (Analgesic [place]) 1 abdi PRN QID PRN TP MUSCLE PAIN 05/30/21 13:00 Al Hydroxide/Mg Hydroxide (Mylanta Plus Xs) 15 ml PRN AFTMEALHC PRN PO DYSPEPSIA 05/30/21 13:00 Magnesium Hydroxide (Milk Of Magnesia) 2,400 mg PRN QHS PRN PO 3RD CHOICE CONSTIPATION 05/30/21 13:00 Alprazolam (Xanax) 0.5 mg PRN Q8HRS PRN PO ANXIETY 05/30/21 13:15 06/04/21 16:24 DC 06/04/21 13:23 Carbidopa/Levodopa (Sinemet 25/100) 1 tab 5XDAY PO 05/30/21 14:00 06/13/21 08:27 Vitamin D (Vitamin D3) 2,000 unit DAILY PO 05/31/21 09:00 06/13/21 08:28 Cyclobenzaprine HCl (Flexeril) 10 mg PRN Q8HRS PRN PO MUSCLE SPASMS 05/30/21 13:15 Docusate Sodium (Colace) 100 mg PRN DAILY PRN PO 1ST CHOICE CONSTIPATION 05/30/21 13:15 Duloxetine HCl (Cymbalta) 60 mg DAILY PO 05/31/21 09:00 06/13/21 08:27 Albuterol/ Ipratropium (Combivent Respimat 20-100 Mcg) 1 puff PRN TID PRN INH SHORTNESS OF BREATH 05/30/21 14:00 Memantine (Namenda) 5 mg BID PO 05/30/21 21:00 06/03/21 23:30 DC 06/03/21 20:42 Ondansetron HCl (Zofran Odt) 4 mg PRN Q4HRS PRN PO 1ST CHOICE NAUSEA/VOMITING 05/30/21 13:15 Polyethylene Glycol (miraLAX) 17 gm PRN DAILY PRN PO 2ND CHOICE CONSTIPATION 05/30/21 13:15 Promethazine HCl (Phenergan Supp) 25 mg PRN Q4HRS PRN RC 2ND CHOICE NAUSEA 05/30/21 13:15 Alendronate Sodium (Fosamax) 70 mg WEEKLY@0600 PO 05/31/21 06:00 05/30/21 22:18 DC Albuterol Sulfate (Ventolin Hfa Inhaler) 1 puff RTQID INH 05/30/21 16:00 06/13/21 08:28 Calcium Carbonate/ Glycine (Tums) 500 mg TID PRN PRN PO HEARTBURN / GAS 05/30/21 14:00 Throat Lozenges (Cepacol Sore Throat Lozenge) 1 linnette PRN Q2HR PRN PO COUGH 05/30/21 14:00 Pregabalin (Lyrica) 100 mg BID PO 05/30/21 21:00 06/13/21 08:27 Alendronate Sodium (Fosamax) 70 mg Sa PO 05/31/21 06:00 06/07/21 04:58 Mirtazapine (Remeron) 7.5 mg QHS PO 05/31/21 21:00 06/11/21 21:00 Divalproex Sodium (Depakote Sprinkles) 125 mg 0900,1700 PO 06/01/21 17:00 06/04/21 16:24 DC 06/04/21 08:01 Divalproex Sodium (Depakote Sprinkles) 250 mg 0900,1700 PO 06/04/21 17:00 06/13/21 08:27 Olanzapine (ZyPREXA ZYDIS) 2.5 mg PRN Q2HR PRN PO PSYCHOSIS 06/04/21 16:30 06/08/21 20:58 Trazodone HCl (Desyrel) 50 mg PRN QHS PRN PO INSOMNIA 06/06/21 20:30 06/12/21 00:31 Neomycin/ Polymyxin/Bacitr/ Hydrocort (Cortisporin Ophth) 2 abdi BID OU 06/10/21 21:00 06/13/21 23:00 06/13/21 08:28 I have reviewed the current psychotropics carefully including drug interactions. Risk benefit ratio favors no change other than as noted in my dictated progress note. Diagnosis: Problems: (1) Major neurocognitive disorder (2) Impulse control disorder, unspecified (3) Anxiety disorder, unspecified (4) Dementia, vascular, with depression (5) Dementia, vascular, with delusions (6) Dementia in Alzheimer's disease with depression (7) Dementia in Alzheimer's disease with delusions (8) Dementia of the Alzheimer's type with early onset with behavioral disturbance RENEE RAINEY MD Jun 13, 2021 09:12
[2021-06-13 15:32] VITALS: BP 111/79
--- NOTE | 2021-06-13 17:24 | NUR ---
Nsg Note; Silver was awake and alert in the morning and through the day until around 1600, after which he became weaker and less alert. he has a weak voice and whispers answers to questions. he is unable to answer questions. he needs prompts to feed himself and took his meds crushed in pudding. he has been calm today
[2021-06-13] MEDS: MIRTAZAPINE 7.5 MG TABLET. PO SCH (20:07)
--- NOTE | 2021-06-13 21:59 | PDOC ---
Exam Note: Hank Note: Please also refer to the separate dictated note~for this date of service dictated separately.~Patient seen individually. Discussed the patient with Nursing staff reviewed the chart.~Reviewed interim history and current functioning. Reviewed vital signs,~Labs/ Radiology~and current medications noted below. Continue current treatment with the changes noted in the dictated addendum note Assessment: Vital Signs/I&O: Vital Signs Date Time Temp Pulse Resp B/P (MAP) Pulse Ox O2 Delivery O2 Flow Rate FiO2 06/13/21 15:32 97.2 76 18 111/79 (90) 96 Room Air I & O 06/12/21 06/12/21 06/13/21 14:00 22:00 06:00 Intake Total 60 ml 60 ml Balance 60 ml 60 ml Labs: Laboratory Tests Test 06/13/21 06:20 White Blood Count 7.6 x10^3/uL (4.0-11.0) Red Blood Count 4.99 x10^6/uL (4.30-5.70) Hemoglobin 14.7 g/dL (13.0-17.5) Hematocrit 44.9 % (39.0-53.0) Mean Corpuscular Volume 90 fL (79-100) Mean Corpuscular Hemoglobin 29 pg (25-35) Mean Corpuscular Hemoglobin Concent 33 g/dL (31-37) Red Cell Distribution Width 14.4 % (11.5-14.5) Platelet Count 158 x10^3/uL (140-400) Neutrophils (%) (Auto) 63 % (31-73) Lymphocytes (%) (Auto) 24 % (24-48) Monocytes (%) (Auto) 10 % (0-9) H Eosinophils (%) (Auto) 1 % (0-3) Basophils (%) (Auto) 2 % (0-3) Neutrophils # (Auto) 4.8 x10^3uL (1.8-7.7) Lymphocytes # (Auto) 1.8 x10^3/uL (1.0-4.8) Monocytes # (Auto) 0.8 x10^3/uL (0.0-1.1) Eosinophils # (Auto) 0.1 x10^3/uL (0.0-0.7) Basophils # (Auto) 0.1 x10^3/uL (0.0-0.2) Sodium Level 147 mmol/L (136-145) H Potassium Level 3.9 mmol/L (3.5-5.1) Chloride Level 112 mmol/L (98-107) H Carbon Dioxide Level 27 mmol/L (21-32) Anion Gap 8 (6-14) Blood Urea Nitrogen 25 mg/dL (8-26) Creatinine 1.1 mg/dL (0.7-1.3) Estimated GFR (Cockcroft-Gault) 65.8 BUN/Creatinine Ratio 23 (6-20) H Glucose Level 85 mg/dL (70-99) Calcium Level 8.3 mg/dL (8.5-10.1) L Total Bilirubin 1.0 mg/dL (0.2-1.0) Aspartate Amino Transferase (AST) 47 U/L (15-37) H Alanine Aminotransferase (ALT) 15 U/L (16-63) L Alkaline Phosphatase 77 U/L (46-116) Total Protein 6.7 g/dL (6.4-8.2) Albumin 3.1 g/dL (3.4-5.0) L Albumin/Globulin Ratio 0.9 (1.0-1.7) L Current Medications: Meds: Laboratory Tests Test 06/13/21 06:20 White Blood Count 7.6 x10^3/uL Red Blood Count 4.99 x10^6/uL Hemoglobin 14.7 g/dL Hematocrit 44.9 % Mean Corpuscular Volume 90 fL Mean Corpuscular Hemoglobin 29 pg Mean Corpuscular Hemoglobin Concent 33 g/dL Red Cell Distribution Width 14.4 % Platelet Count 158 x10^3/uL Neutrophils (%) (Auto) 63 % Lymphocytes (%) (Auto) 24 % Monocytes (%) (Auto) 10 % Eosinophils (%) (Auto) 1 % Basophils (%) (Auto) 2 % Neutrophils # (Auto) 4.8 x10^3uL Lymphocytes # (Auto) 1.8 x10^3/uL Monocytes # (Auto) 0.8 x10^3/uL Eosinophils # (Auto) 0.1 x10^3/uL Basophils # (Auto) 0.1 x10^3/uL Sodium Level 147 mmol/L Potassium Level 3.9 mmol/L Chloride Level 112 mmol/L Carbon Dioxide Level 27 mmol/L Anion Gap 8 Blood Urea Nitrogen 25 mg/dL Creatinine 1.1 mg/dL Estimated GFR (Cockcroft-Gault) 65.8 BUN/Creatinine Ratio 23 Glucose Level 85 mg/dL Calcium Level 8.3 mg/dL Total Bilirubin 1.0 mg/dL Aspartate Amino Transf (AST/SGOT) 47 U/L Alanine Aminotransferase (ALT/SGPT) 15 U/L Alkaline Phosphatase 77 U/L Total Protein 6.7 g/dL Albumin 3.1 g/dL Albumin/Globulin Ratio 0.9 Current Medications Medications (Trade) Dose Ordered Sig/Altaf Route PRN Reason Start Time Stop Time Status Last Admin Dose Admin Acetaminophen (Tylenol) 650 mg PRN Q6HRS PRN PO MILD PAIN / TEMP > 100.3'F 05/30/21 13:00 Multi-Ingredient Ointment (Analgesic [place]) 1 abdi PRN QID PRN TP MUSCLE PAIN 05/30/21 13:00 Al Hydroxide/Mg Hydroxide (Mylanta Plus Xs) 15 ml PRN AFTMEALHC PRN PO DYSPEPSIA 05/30/21 13:00 Magnesium Hydroxide (Milk Of Magnesia) 2,400 mg PRN QHS PRN PO 3RD CHOICE CONSTIPATION 05/30/21 13:00 Alprazolam (Xanax) 0.5 mg PRN Q8HRS PRN PO ANXIETY 05/30/21 13:15 06/04/21 16:24 DC 06/04/21 13:23 Carbidopa/Levodopa (Sinemet 25/100) 1 tab 5XDAY PO 05/30/21 14:00 06/13/21 20:07 Vitamin D (Vitamin D3) 2,000 unit DAILY PO 05/31/21 09:00 06/13/21 08:28 Cyclobenzaprine HCl (Flexeril) 10 mg PRN Q8HRS PRN PO MUSCLE SPASMS 05/30/21 13:15 Docusate Sodium (Colace) 100 mg PRN DAILY PRN PO 1ST CHOICE CONSTIPATION 05/30/21 13:15 Duloxetine HCl (Cymbalta) 60 mg DAILY PO 05/31/21 09:00 06/13/21 08:27 Albuterol/ Ipratropium (Combivent Respimat 20-100 Mcg) 1 puff PRN TID PRN INH SHORTNESS OF BREATH 05/30/21 14:00 Memantine (Namenda) 5 mg BID PO 05/30/21 21:00 06/03/21 23:30 DC 06/03/21 20:42 Ondansetron HCl (Zofran Odt) 4 mg PRN Q4HRS PRN PO 1ST CHOICE NAUSEA/VOMITING 05/30/21 13:15 Polyethylene Glycol (miraLAX) 17 gm PRN DAILY PRN PO 2ND CHOICE CONSTIPATION 05/30/21 13:15 Promethazine HCl (Phenergan Supp) 25 mg PRN Q4HRS PRN RC 2ND CHOICE NAUSEA 05/30/21 13:15 Alendronate Sodium (Fosamax) 70 mg WEEKLY@0600 PO 05/31/21 06:00 05/30/21 22:18 DC Albuterol Sulfate (Ventolin Hfa Inhaler) 1 puff RTQID INH 05/30/21 16:00 06/13/21 20:08 Calcium Carbonate/ Glycine (Tums) 500 mg TID PRN PRN PO HEARTBURN / GAS 05/30/21 14:00 Throat Lozenges (Cepacol Sore Throat Lozenge) 1 linnette PRN Q2HR PRN PO COUGH 05/30/21 14:00 Pregabalin (Lyrica) 100 mg BID PO 05/30/21 21:00 06/13/21 20:08 Alendronate Sodium (Fosamax) 70 mg Sa PO 05/31/21 06:00 06/07/21 04:58 Mirtazapine (Remeron) 7.5 mg QHS PO 05/31/21 21:00 06/13/21 20:07 Divalproex Sodium (Depakote Sprinkles) 125 mg 0900,1700 PO 06/01/21 17:00 06/04/21 16:24 DC 06/04/21 08:01 Divalproex Sodium (Depakote Sprinkles) 250 mg 0900,1700 PO 06/04/21 17:00 06/13/21 17:12 Olanzapine (ZyPREXA ZYDIS) 2.5 mg PRN Q2HR PRN PO PSYCHOSIS 06/04/21 16:30 06/08/21 20:58 Trazodone HCl (Desyrel) 50 mg PRN QHS PRN PO INSOMNIA 06/06/21 20:30 06/12/21 00:31 Neomycin/ Polymyxin/Bacitr/ Hydrocort (Cortisporin Ophth) 2 abdi BID OU 06/10/21 21:00 06/13/21 23:00 06/13/21 20:08 I have reviewed the current psychotropics carefully including drug interactions. Risk benefit ratio favors no change other than as noted in my dictated progress note. Diagnosis: Problems: (1) Major neurocognitive disorder (2) Impulse control disorder, unspecified (3) Anxiety disorder, unspecified (4) Dementia, vascular, with depression (5) Dementia, vascular, with delusions (6) Dementia in Alzheimer's disease with depression (7) Dementia in Alzheimer's disease with delusions (8) Dementia of the Alzheimer's type with early onset with behavioral disturbance RENEE RAINEY MD Jun 13, 2021 21:59
--- NOTE | 2021-06-13 23:45 | NUR ---
Patient is located in the hallway for assessments and medications, sitting in a wheelchair. He is restless, repeatedly trying to get up. This nurse explained to patient that we wanted him to stay seated for safety, since he is unsteady. He became irritable, stating "So I guess you want me to sit here for the rest of my life then." Nurse reiterated the reason that staff wants him to stay seated unless he is in bed. He continued to be irritable, but was cooperative with HS care. Compliant with medications crushed in chocolate pudding. He does not appear to be experiencing any pain or discomfort. No agitation. Patient appears to be sleeping comfortably at present time. Will continue to monitor.
[2021-06-14] MEDS: ALENDRONATE SODIUM 35 MG TABLET PO SCH (05:05)
[2021-06-14] MEDS: CARBIDOPA/LEVODOPA 25/100MG TABLET PO SCH ×5 (05:05→19:50)
[2021-06-14 06:13] VITALS: BP 111/69
[2021-06-14] MEDS: ALBUTEROL SULFATE 8GM INHALER. INH SCH ×4 (08:48→17:41)
[2021-06-14] MEDS: DIVALPROEX 125 MG CAP.SPRINK PO SCH ×2 (08:49→17:15)
[2021-06-14] MEDS: DULoxetine HCL 60 MG CAPSULE.DR PO SCH (08:49)
[2021-06-14] MEDS: PREGABALIN 50 MG CAPSULE PO SCH ×2 (08:49→19:51)
[2021-06-14] MEDS: CHOLECALCIFEROL (VITAMIN D3) 1,000 UNIT TABLET PO SCH (08:49)
[2021-06-14 15:37] VITALS: BP 119/77
--- NOTE | 2021-06-14 16:19 | RAD ---
PA and lateral chest. HISTORY: Increased congestion PA and lateral views were taken of the chest. I do not have an old study for comparison. There are ch anges from severe chronic obstructive pulmonary disease. The aorta is tortuous. The heart is not enla rged. There is no pleural effusion. There is linear scarring or atelectasis in the left midlung. Ther e is focal atelectasis or scarring in the right lung base. There are also mild right basilar infiltra cyndie. There are infiltrates posteriorly on the lateral view. IMPRESSION: 1. Severe COPD. 2. Bilateral linear scarring or atelectasis. 3. Right basilar infiltrates. Electronically signed by: Azam Rdz MD (06/14/2021 4:17 PM) [id number]
[2021-06-14] MEDS: MIRTAZAPINE 7.5 MG TABLET. PO SCH (19:50)
[2021-06-14 20:47] LABS: BILIRUBIN,URINE SMALL (NEG); CLARITY,URINE CLEAR; COLOR,URINE YELLOW; GLUCOSE,URINE NEG (NEG); NITRITE,URINE NEG (NEG)
[2021-06-14 20:48] LABS: BACTERIA,URINE 0 /HPF (0-FEW); RBC,URINE 0 /HPF (0-2); SQUAMOUS EPITHELIAL CELL,UR OCC /LPF; WBC,URINE RARE /HPF (0-4)
--- NOTE | 2021-06-14 22:11 | NUR ---
Patient is located in the hallway for assessments and medications, sitting in a wheelchair. He is flat, disorganized. Less irritable and resistive than previous evening. Compliant with medications crushed in chocolate pudding. Cooperative with toileting and HS care. He does not appear to be experiencing any pain or discomfort. No agitation. Patient appears to be sleeping comfortably at present time. Will continue to monitor.
--- NOTE | 2021-06-14 22:12 | PDOC ---
Exam Note: Hank Note: Please also refer to the separate dictated note~for this date of service dictated separately.~Patient seen individually. Discussed the patient with Nursing staff reviewed the chart.~Reviewed interim history and current functioning. Reviewed vital signs,~Labs/ Radiology~and current medications noted below. Continue current treatment with the changes noted in the dictated addendum note Assessment: Vital Signs/I&O: Vital Signs Date Time Temp Pulse Resp B/P (MAP) Pulse Ox O2 Delivery O2 Flow Rate FiO2 06/14/21 15:37 97.1 71 20 119/77 (91) 96 Room Air I & O 06/13/21 06/13/21 06/14/21 14:00 22:00 06:00 Intake Total 600 ml 240 ml 480 ml Balance 600 ml 240 ml 480 ml Labs: Laboratory Tests Test 06/14/21 20:30 Urine Collection Type Unknown Urine Color Yellow Urine Clarity Clear Urine pH 5.5 Urine Specific D[place] 1.025 Urine Protein Trace (NEG-TRACE) Urine Glucose (UA) Neg mg/dL (NEG) Urine Ketones (Stick) 15 mg/dL (NEG) Urine Blood Neg (NEG) Urine Nitrite Neg (NEG) Urine Bilirubin Small (NEG) Urine Urobilinogen Dipstick 2.0 mg/dL (0.2 mg/dL) Urine Leukocyte Esterase Neg (NEG) Urine RBC 0 /HPF (0-2) Urine WBC Rare /HPF (0-4) Urine Squamous Epithelial Cells Occ /LPF Urine Bacteria 0 /HPF (0-FEW) Current Medications: Meds: Laboratory Tests Test 06/14/21 20:30 Urine Collection Type Unknown Urine Color Yellow Urine Clarity Clear Urine pH 5.5 Urine Specific [place] 1.025 Urine Protein Trace Urine Glucose (UA) Neg mg/dL Urine Ketones (Stick) 15 mg/dL Urine Blood Neg Urine Nitrite Neg Urine Bilirubin Small Urine Urobilinogen Dipstick 2.0 mg/dL Urine Leukocyte Esterase Neg Urine RBC 0 /HPF Urine WBC Rare /HPF Urine Squamous Epithelial Cells Occ /LPF Urine Bacteria 0 /HPF Current Medications Medications (Trade) Dose Ordered Sig/Altaf Route PRN Reason Start Time Stop Time Status Last Admin Dose Admin Acetaminophen (Tylenol) 650 mg PRN Q6HRS PRN PO MILD PAIN / TEMP > 100.3'F 05/30/21 13:00 Multi-Ingredient Ointment (Analgesic [place]) 1 abdi PRN QID PRN TP MUSCLE PAIN 05/30/21 13:00 Al Hydroxide/Mg Hydroxide (Mylanta Plus Xs) 15 ml PRN AFTMEALHC PRN PO DYSPEPSIA 05/30/21 13:00 Magnesium Hydroxide (Milk Of Magnesia) 2,400 mg PRN QHS PRN PO 3RD CHOICE CONSTIPATION 05/30/21 13:00 Alprazolam (Xanax) 0.5 mg PRN Q8HRS PRN PO ANXIETY 05/30/21 13:15 06/04/21 16:24 DC 06/04/21 13:23 Carbidopa/Levodopa (Sinemet 25/100) 1 tab 5XDAY PO 05/30/21 14:00 06/14/21 19:50 Vitamin D (Vitamin D3) 2,000 unit DAILY PO 05/31/21 09:00 06/14/21 08:49 Cyclobenzaprine HCl (Flexeril) 10 mg PRN Q8HRS PRN PO MUSCLE SPASMS 05/30/21 13:15 Docusate Sodium (Colace) 100 mg PRN DAILY PRN PO 1ST CHOICE CONSTIPATION 05/30/21 13:15 Duloxetine HCl (Cymbalta) 60 mg DAILY PO 05/31/21 09:00 06/14/21 08:49 Albuterol/ Ipratropium (Combivent Respimat 20-100 Mcg) 1 puff PRN TID PRN INH SHORTNESS OF BREATH 05/30/21 14:00 Memantine (Namenda) 5 mg BID PO 05/30/21 21:00 06/03/21 23:30 DC 06/03/21 20:42 Ondansetron HCl (Zofran Odt) 4 mg PRN Q4HRS PRN PO 1ST CHOICE NAUSEA/VOMITING 05/30/21 13:15 Polyethylene Glycol (miraLAX) 17 gm PRN DAILY PRN PO 2ND CHOICE CONSTIPATION 05/30/21 13:15 Promethazine HCl (Phenergan Supp) 25 mg PRN Q4HRS PRN RC 2ND CHOICE NAUSEA 05/30/21 13:15 Alendronate Sodium (Fosamax) 70 mg WEEKLY@0600 PO 05/31/21 06:00 05/30/21 22:18 DC Albuterol Sulfate (Ventolin Hfa Inhaler) 1 puff RTQID INH 05/30/21 16:00 06/14/21 17:41 Calcium Carbonate/ Glycine (Tums) 500 mg TID PRN PRN PO HEARTBURN / GAS 05/30/21 14:00 Throat Lozenges (Cepacol Sore Throat Lozenge) 1 linnette PRN Q2HR PRN PO COUGH 05/30/21 14:00 Pregabalin (Lyrica) 100 mg BID PO 05/30/21 21:00 06/14/21 19:51 Alendronate Sodium (Fosamax) 70 mg Sa PO 05/31/21 06:00 06/14/21 05:05 Mirtazapine (Remeron) 7.5 mg QHS PO 05/31/21 21:00 06/14/21 19:50 Divalproex Sodium (Depakote Sprinkles) 125 mg 0900,1700 PO 06/01/21 17:00 06/04/21 16:24 DC 06/04/21 08:01 Divalproex Sodium (Depakote Sprinkles) 250 mg 0900,1700 PO 06/04/21 17:00 06/14/21 17:15 Olanzapine (ZyPREXA ZYDIS) 2.5 mg PRN Q2HR PRN PO PSYCHOSIS 06/04/21 16:30 06/08/21 20:58 Trazodone HCl (Desyrel) 50 mg PRN QHS PRN PO INSOMNIA 06/06/21 20:30 06/12/21 00:31 Neomycin/ Polymyxin/Bacitr/ Hydrocort (Cortisporin Ophth) 2 abdi BID OU 06/10/21 21:00 06/13/21 23:00 DC 06/13/21 20:08 I have reviewed the current psychotropics carefully including drug interactions. Risk benefit ratio favors no change other than as noted in my dictated progress note. Diagnosis: Problems: (1) Major neurocognitive disorder (2) Impulse control disorder, unspecified (3) Anxiety disorder, unspecified (4) Dementia, vascular, with depression (5) Dementia, vascular, with delusions (6) Dementia in Alzheimer's disease with depression (7) Dementia in Alzheimer's disease with delusions (8) Dementia of the Alzheimer's type with early onset with behavioral disturbance RENEE RAINEY MD Jun 14, 2021 22:12
[2021-06-15] MEDS: CARBIDOPA/LEVODOPA 25/100MG TABLET PO SCH ×6 (05:39→22:00)
[2021-06-15 06:07] VITALS: BP 124/82
[2021-06-15] MEDS: DULoxetine HCL 60 MG CAPSULE.DR PO SCH (08:06)
[2021-06-15] MEDS: CHOLECALCIFEROL (VITAMIN D3) 1,000 UNIT TABLET PO SCH (08:07)
[2021-06-15] MEDS: DIVALPROEX 125 MG CAP.SPRINK PO SCH ×2 (08:07→17:09)
[2021-06-15] MEDS: PREGABALIN 50 MG CAPSULE PO SCH ×2 (08:07→19:40)
[2021-06-15] MEDS: ALBUTEROL SULFATE 8GM INHALER. INH SCH ×4 (08:12→19:40)
[2021-06-15 10:36] LABS: BASO % 1 % (0-3); EOS # 0.1 x10^3/uL (0.0-0.7); EOS % 2 % (0-3); HEMATOCRIT 49.5 % (39.0-53.0); HEMOGLOBIN 16.3 g/dL (13.0-17.5); LYMPH # 1.8 x10^3/uL (1.0-4.8); LYMPH % 21 % (24-48); MEAN CORPUSCULAR HEMOGLOBIN 30 pg (25-35); MEAN CORPUSCULAR HGB CONC 33 g/dL (31-37); MEAN CORPUSCULAR VOLUME 92 fL (79-100); MONO # 0.8 x10^3/uL (0.0-1.1); MONO % 9 % (0-9); NEUT # 5.9 x10^3uL (1.8-7.7); NEUT % 68 % (31-73); PLATELET COUNT 183 x10^3/uL (140-400); RED CELL DISTRIBUTION WIDTH 14.4 % (11.5-14.5); WHITE BLOOD COUNT 8.7 x10^3/uL (4.0-11.0)
[2021-06-15 10:48] LABS: ALBUMIN 3.5 g/dL (3.4-5.0); ALBUMIN/GLOBULIN RATIO 0.8 (1.0-1.7); CALCIUM 8.7 mg/dL (8.5-10.1); GFR 73.5; POTASSIUM 3.6 mmol/L (3.5-5.1); TOTAL PROTEIN 7.8 g/dL (6.4-8.2)
[2021-06-15 15:52] VITALS: BP 126/88
[2021-06-15] MEDS: MIRTAZAPINE 7.5 MG TABLET. PO SCH (19:39)
--- NOTE | 2021-06-15 21:57 | PDOC ---
Exam Note: Hank Note: Please also refer to the separate dictated note~for this date of service dictated separately.~Patient seen individually. Discussed the patient with Nursing staff reviewed the chart.~Reviewed interim history and current functioning. Reviewed vital signs,~Labs/ Radiology~and current medications noted below. Continue current treatment with the changes noted in the dictated addendum note Assessment: Vital Signs/I&O: Vital Signs Date Time Temp Pulse Resp B/P (MAP) Pulse Ox O2 Delivery O2 Flow Rate FiO2 06/15/21 15:52 97.8 78 16 126/88 (101) 97 06/14/21 15:37 Room Air I & O 06/14/21 06/14/21 06/15/21 15:00 23:00 07:00 Intake Total 480 ml 720 ml Balance 480 ml 720 ml Labs: Laboratory Tests Test 06/15/21 09:44 White Blood Count 8.7 x10^3/uL (4.0-11.0) Red Blood Count 5.40 x10^6/uL (4.30-5.70) Hemoglobin 16.3 g/dL (13.0-17.5) Hematocrit 49.5 % (39.0-53.0) Mean Corpuscular Volume 92 fL (79-100) Mean Corpuscular Hemoglobin 30 pg (25-35) Mean Corpuscular Hemoglobin Concent 33 g/dL (31-37) Red Cell Distribution Width 14.4 % (11.5-14.5) Platelet Count 183 x10^3/uL (140-400) Neutrophils (%) (Auto) 68 % (31-73) Lymphocytes (%) (Auto) 21 % (24-48) L Monocytes (%) (Auto) 9 % (0-9) Eosinophils (%) (Auto) 2 % (0-3) Basophils (%) (Auto) 1 % (0-3) Neutrophils # (Auto) 5.9 x10^3uL (1.8-7.7) Lymphocytes # (Auto) 1.8 x10^3/uL (1.0-4.8) Monocytes # (Auto) 0.8 x10^3/uL (0.0-1.1) Eosinophils # (Auto) 0.1 x10^3/uL (0.0-0.7) Basophils # (Auto) 0.0 x10^3/uL (0.0-0.2) Sodium Level 145 mmol/L (136-145) Potassium Level 3.6 mmol/L (3.5-5.1) Chloride Level 106 mmol/L (98-107) Carbon Dioxide Level 28 mmol/L (21-32) Anion Gap 11 (6-14) Blood Urea Nitrogen 21 mg/dL (8-26) Creatinine 1.0 mg/dL (0.7-1.3) Estimated GFR (Cockcroft-Gault) 73.5 BUN/Creatinine Ratio 21 (6-20) H Glucose Level 91 mg/dL (70-99) Calcium Level 8.7 mg/dL (8.5-10.1) Total Bilirubin 1.0 mg/dL (0.2-1.0) Aspartate Amino Transferase (AST) 39 U/L (15-37) H Alanine Aminotransferase (ALT) 14 U/L (16-63) L Alkaline Phosphatase 92 U/L (46-116) Total Protein 7.8 g/dL (6.4-8.2) Albumin 3.5 g/dL (3.4-5.0) Albumin/Globulin Ratio 0.8 (1.0-1.7) L Current Medications: Meds: Laboratory Tests Test 06/15/21 09:44 White Blood Count 8.7 x10^3/uL Red Blood Count 5.40 x10^6/uL Hemoglobin 16.3 g/dL Hematocrit 49.5 % Mean Corpuscular Volume 92 fL Mean Corpuscular Hemoglobin 30 pg Mean Corpuscular Hemoglobin Concent 33 g/dL Red Cell Distribution Width 14.4 % Platelet Count 183 x10^3/uL Neutrophils (%) (Auto) 68 % Lymphocytes (%) (Auto) 21 % Monocytes (%) (Auto) 9 % Eosinophils (%) (Auto) 2 % Basophils (%) (Auto) 1 % Neutrophils # (Auto) 5.9 x10^3uL Lymphocytes # (Auto) 1.8 x10^3/uL Monocytes # (Auto) 0.8 x10^3/uL Eosinophils # (Auto) 0.1 x10^3/uL Basophils # (Auto) 0.0 x10^3/uL Sodium Level 145 mmol/L Potassium Level 3.6 mmol/L Chloride Level 106 mmol/L Carbon Dioxide Level 28 mmol/L Anion Gap 11 Blood Urea Nitrogen 21 mg/dL Creatinine 1.0 mg/dL Estimated GFR (Cockcroft-Gault) 73.5 BUN/Creatinine Ratio 21 Glucose Level 91 mg/dL Calcium Level 8.7 mg/dL Total Bilirubin 1.0 mg/dL Aspartate Amino Transf (AST/SGOT) 39 U/L Alanine Aminotransferase (ALT/SGPT) 14 U/L Alkaline Phosphatase 92 U/L Total Protein 7.8 g/dL Albumin 3.5 g/dL Albumin/Globulin Ratio 0.8 Current Medications Medications (Trade) Dose Ordered Sig/Altaf Route PRN Reason Start Time Stop Time Status Last Admin Dose Admin Acetaminophen (Tylenol) 650 mg PRN Q6HRS PRN PO MILD PAIN / TEMP > 100.3'F 05/30/21 13:00 Multi-Ingredient Ointment (Analgesic [place]) 1 abdi PRN QID PRN TP MUSCLE PAIN 05/30/21 13:00 Al Hydroxide/Mg Hydroxide (Mylanta Plus Xs) 15 ml PRN AFTMEALHC PRN PO DYSPEPSIA 05/30/21 13:00 Magnesium Hydroxide (Milk Of Magnesia) 2,400 mg PRN QHS PRN PO 3RD CHOICE CONSTIPATION 05/30/21 13:00 Alprazolam (Xanax) 0.5 mg PRN Q8HRS PRN PO ANXIETY 05/30/21 13:15 06/04/21 16:24 DC 06/04/21 13:23 Carbidopa/Levodopa (Sinemet 25/100) 1 tab 5XDAY PO 05/30/21 14:00 06/15/21 13:20 DC 06/15/21 10:02 Vitamin D (Vitamin D3) 2,000 unit DAILY PO 05/31/21 09:00 06/15/21 08:07 Cyclobenzaprine HCl (Flexeril) 10 mg PRN Q8HRS PRN PO MUSCLE SPASMS 05/30/21 13:15 Docusate Sodium (Colace) 100 mg PRN DAILY PRN PO 1ST CHOICE CONSTIPATION 05/30/21 13:15 Duloxetine HCl (Cymbalta) 60 mg DAILY PO 05/31/21 09:00 06/15/21 08:06 Albuterol/ Ipratropium (Combivent Respimat 20-100 Mcg) 1 puff PRN TID PRN INH SHORTNESS OF BREATH 05/30/21 14:00 Memantine (Namenda) 5 mg BID PO 05/30/21 21:00 06/03/21 23:30 DC 06/03/21 20:42 Ondansetron HCl (Zofran Odt) 4 mg PRN Q4HRS PRN PO 1ST CHOICE NAUSEA/VOMITING 05/30/21 13:15 Polyethylene Glycol (miraLAX) 17 gm PRN DAILY PRN PO 2ND CHOICE CONSTIPATION 05/30/21 13:15 Promethazine HCl (Phenergan Supp) 25 mg PRN Q4HRS PRN RC 2ND CHOICE NAUSEA 05/30/21 13:15 Alendronate Sodium (Fosamax) 70 mg WEEKLY@0600 PO 05/31/21 06:00 05/30/21 22:18 DC Albuterol Sulfate (Ventolin Hfa Inhaler) 1 puff RTQID INH 05/30/21 16:00 06/15/21 19:40 Calcium Carbonate/ Glycine (Tums) 500 mg TID PRN PRN PO HEARTBURN / GAS 05/30/21 14:00 Throat Lozenges (Cepacol Sore Throat Lozenge) 1 linnette PRN Q2HR PRN PO COUGH 05/30/21 14:00 Pregabalin (Lyrica) 100 mg BID PO 05/30/21 21:00 06/15/21 19:40 Alendronate Sodium (Fosamax) 70 mg Sa PO 05/31/21 06:00 06/14/21 05:05 Mirtazapine (Remeron) 7.5 mg QHS PO 05/31/21 21:00 06/15/21 19:39 Divalproex Sodium (Depakote Sprinkles) 125 mg 0900,1700 PO 06/01/21 17:00 06/04/21 16:24 DC 06/04/21 08:01 Divalproex Sodium (Depakote Sprinkles) 250 mg 0900,1700 PO 06/04/21 17:00 06/15/21 17:09 Olanzapine (ZyPREXA ZYDIS) 2.5 mg PRN Q2HR PRN PO PSYCHOSIS 06/04/21 16:30 06/08/21 20:58 Trazodone HCl (Desyrel) 50 mg PRN QHS PRN PO INSOMNIA 06/06/21 20:30 06/12/21 00:31 Neomycin/ Polymyxin/Bacitr/ Hydrocort (Cortisporin Ophth) 2 abdi BID OU 06/10/21 21:00 06/13/21 23:00 DC 06/13/21 20:08 Carbidopa/Levodopa (Sinemet 25/100) 1 tab 6XDAY PO 06/15/21 15:00 06/15/21 19:39 Current Medications Medications (Trade) Dose Ordered Sig/Altaf Route PRN Reason Start Time Stop Time Status Last Admin Dose Admin Carbidopa/Levodopa (Sinemet 25/100) 1 tab 6XDAY PO 06/15/21 15:00 06/15/21 19:39 I have reviewed the current psychotropics carefully including drug interactions. Risk benefit ratio favors no change other than as noted in my dictated progress note. Diagnosis: Problems: (1) Major neurocognitive disorder (2) Impulse control disorder, unspecified (3) Anxiety disorder, unspecified (4) Dementia, vascular, with depression (5) Dementia, vascular, with delusions (6) Dementia in Alzheimer's disease with depression (7) Dementia in Alzheimer's disease with delusions (8) Dementia of the Alzheimer's type with early onset with behavioral disturbance RENEE RAINEY MD Jun 15, 2021 21:57
[2021-06-15] MEDS: traZODone 50 MG TABLET. PO PRN (23:50)
[2021-06-16 05:45] VITALS: BP 139/91
--- NOTE | 2021-06-16 06:29 | PDOC ---
Exam Note: Hank Note: This note is a late entry for 06/13/2021 covers elements not covered in my initial note. Subjective: The patient was seen face to face in the evening of 06/13/2021 with Micheline SAM, discussed and reviewed the chart. The patient slept 8-1/2 hours previous night. He has been somewhat listless in the morning, little more active and interactive later in the day. Nursing staff wondered about the possible UTI contributing to his ongoing confusion and we will check UA given his Parkinsons disease and ongoing movement disorder. We will also have a consult with Dr. Solano, Neurology for this. Otherwise the patient has been somewhat withdrawn, is a fall risk, walks bent over forward. Review of Systems: Impaired ambulation. No CV, pulmonary, eye, ENT system symptoms on review. Mental Status Exam: The patient is oriented to himself and situation. Speech moderate to marked latency, low in rate and rhythm, low in volume. Abstraction fair. Computation impaired. Language function intact. Mood and affect withdrawn. Laboratory Data: Reviewed. Impression: Major depressive disorder recurrent. 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 Anxiety disorder unspecified. Impulse control disorder unspecified. Plan: No change from initial note. Assessment: Vital Signs/I&O: Vital Signs Date Time Temp Pulse Resp B/P (MAP) Pulse Ox O2 Delivery O2 Flow Rate FiO2 06/16/21 05:45 97.0 58 16 139/91 (107) 92 Room Air I & O 06/15/21 06/15/21 06/16/21 15:00 23:00 07:00 Intake Total 600 ml 240 ml Balance 600 ml 240 ml Labs: Laboratory Tests Test 06/15/21 09:44 White Blood Count 8.7 x10^3/uL (4.0-11.0) Red Blood Count 5.40 x10^6/uL (4.30-5.70) Hemoglobin 16.3 g/dL (13.0-17.5) Hematocrit 49.5 % (39.0-53.0) Mean Corpuscular Volume 92 fL (79-100) Mean Corpuscular Hemoglobin 30 pg (25-35) Mean Corpuscular Hemoglobin Concent 33 g/dL (31-37) Red Cell Distribution Width 14.4 % (11.5-14.5) Platelet Count 183 x10^3/uL (140-400) Neutrophils (%) (Auto) 68 % (31-73) Lymphocytes (%) (Auto) 21 % (24-48) L Monocytes (%) (Auto) 9 % (0-9) Eosinophils (%) (Auto) 2 % (0-3) Basophils (%) (Auto) 1 % (0-3) Neutrophils # (Auto) 5.9 x10^3uL (1.8-7.7) Lymphocytes # (Auto) 1.8 x10^3/uL (1.0-4.8) Monocytes # (Auto) 0.8 x10^3/uL (0.0-1.1) Eosinophils # (Auto) 0.1 x10^3/uL (0.0-0.7) Basophils # (Auto) 0.0 x10^3/uL (0.0-0.2) Sodium Level 145 mmol/L (136-145) Potassium Level 3.6 mmol/L (3.5-5.1) Chloride Level 106 mmol/L (98-107) Carbon Dioxide Level 28 mmol/L (21-32) Anion Gap 11 (6-14) Blood Urea Nitrogen 21 mg/dL (8-26) Creatinine 1.0 mg/dL (0.7-1.3) Estimated GFR (Cockcroft-Gault) 73.5 BUN/Creatinine Ratio 21 (6-20) H Glucose Level 91 mg/dL (70-99) Calcium Level 8.7 mg/dL (8.5-10.1) Total Bilirubin 1.0 mg/dL (0.2-1.0) Aspartate Amino Transferase (AST) 39 U/L (15-37) H Alanine Aminotransferase (ALT) 14 U/L (16-63) L Alkaline Phosphatase 92 U/L (46-116) Total Protein 7.8 g/dL (6.4-8.2) Albumin 3.5 g/dL (3.4-5.0) Albumin/Globulin Ratio 0.8 (1.0-1.7) L Current Medications: Meds: Laboratory Tests Test 06/15/21 09:44 White Blood Count 8.7 x10^3/uL Red Blood Count 5.40 x10^6/uL Hemoglobin 16.3 g/dL Hematocrit 49.5 % Mean Corpuscular Volume 92 fL Mean Corpuscular Hemoglobin 30 pg Mean Corpuscular Hemoglobin Concent 33 g/dL Red Cell Distribution Width 14.4 % Platelet Count 183 x10^3/uL Neutrophils (%) (Auto) 68 % Lymphocytes (%) (Auto) 21 % Monocytes (%) (Auto) 9 % Eosinophils (%) (Auto) 2 % Basophils (%) (Auto) 1 % Neutrophils # (Auto) 5.9 x10^3uL Lymphocytes # (Auto) 1.8 x10^3/uL Monocytes # (Auto) 0.8 x10^3/uL Eosinophils # (Auto) 0.1 x10^3/uL Basophils # (Auto) 0.0 x10^3/uL Sodium Level 145 mmol/L Potassium Level 3.6 mmol/L Chloride Level 106 mmol/L Carbon Dioxide Level 28 mmol/L Anion Gap 11 Blood Urea Nitrogen 21 mg/dL Creatinine 1.0 mg/dL Estimated GFR (Cockcroft-Gault) 73.5 BUN/Creatinine Ratio 21 Glucose Level 91 mg/dL Calcium Level 8.7 mg/dL Total Bilirubin 1.0 mg/dL Aspartate Amino Transf (AST/SGOT) 39 U/L Alanine Aminotransferase (ALT/SGPT) 14 U/L Alkaline Phosphatase 92 U/L Total Protein 7.8 g/dL Albumin 3.5 g/dL Albumin/Globulin Ratio 0.8 Current Medications Medications (Trade) Dose Ordered Sig/Altaf Route PRN Reason Start Time Stop Time Status Last Admin Dose Admin Acetaminophen (Tylenol) 650 mg PRN Q6HRS PRN PO MILD PAIN / TEMP > 100.3'F 05/30/21 13:00 Multi-Ingredient Ointment (Analgesic [place]) 1 abdi PRN QID PRN TP MUSCLE PAIN 05/30/21 13:00 Al Hydroxide/Mg Hydroxide (Mylanta Plus Xs) 15 ml PRN AFTMEALHC PRN PO DYSPEPSIA 05/30/21 13:00 Magnesium Hydroxide (Milk Of Magnesia) 2,400 mg PRN QHS PRN PO 3RD CHOICE CONSTIPATION 05/30/21 13:00 Alprazolam (Xanax) 0.5 mg PRN Q8HRS PRN PO ANXIETY 05/30/21 13:15 06/04/21 16:24 DC 06/04/21 13:23 Carbidopa/Levodopa (Sinemet 25/100) 1 tab 5XDAY PO 05/30/21 14:00 06/15/21 13:20 DC 06/15/21 10:02 Vitamin D (Vitamin D3) 2,000 unit DAILY PO 05/31/21 09:00 06/15/21 08:07 Cyclobenzaprine HCl (Flexeril) 10 mg PRN Q8HRS PRN PO MUSCLE SPASMS 05/30/21 13:15 Docusate Sodium (Colace) 100 mg PRN DAILY PRN PO 1ST CHOICE CONSTIPATION 05/30/21 13:15 Duloxetine HCl (Cymbalta) 60 mg DAILY PO 05/31/21 09:00 06/15/21 08:06 Albuterol/ Ipratropium (Combivent Respimat 20-100 Mcg) 1 puff PRN TID PRN INH SHORTNESS OF BREATH 05/30/21 14:00 Memantine (Namenda) 5 mg BID PO 05/30/21 21:00 06/03/21 23:30 DC 06/03/21 20:42 Ondansetron HCl (Zofran Odt) 4 mg PRN Q4HRS PRN PO 1ST CHOICE NAUSEA/VOMITING 05/30/21 13:15 Polyethylene Glycol (miraLAX) 17 gm PRN DAILY PRN PO 2ND CHOICE CONSTIPATION 05/30/21 13:15 Promethazine HCl (Phenergan Supp) 25 mg PRN Q4HRS PRN RC 2ND CHOICE NAUSEA 05/30/21 13:15 Alendronate Sodium (Fosamax) 70 mg WEEKLY@0600 PO 05/31/21 06:00 05/30/21 22:18 DC Albuterol Sulfate (Ventolin Hfa Inhaler) 1 puff RTQID INH 05/30/21 16:00 06/15/21 19:40 Calcium Carbonate/ Glycine (Tums) 500 mg TID PRN PRN PO HEARTBURN / GAS 05/30/21 14:00 Throat Lozenges (Cepacol Sore Throat Lozenge) 1 linnette PRN Q2HR PRN PO COUGH 05/30/21 14:00 Pregabalin (Lyrica) 100 mg BID PO 05/30/21 21:00 06/15/21 19:40 Alendronate Sodium (Fosamax) 70 mg Sa PO 05/31/21 06:00 06/14/21 05:05 Mirtazapine (Remeron) 7.5 mg QHS PO 05/31/21 21:00 06/15/21 19:39 Divalproex Sodium (Depakote Sprinkles) 125 mg 0900,1700 PO 06/01/21 17:00 06/04/21 16:24 DC 06/04/21 08:01 Divalproex Sodium (Depakote Sprinkles) 250 mg 0900,1700 PO 06/04/21 17:00 06/15/21 17:09 Olanzapine (ZyPREXA ZYDIS) 2.5 mg PRN Q2HR PRN PO PSYCHOSIS 06/04/21 16:30 06/08/21 20:58 Trazodone HCl (Desyrel) 50 mg PRN QHS PRN PO INSOMNIA 06/06/21 20:30 06/15/21 23:50 Neomycin/ Polymyxin/Bacitr/ Hydrocort (Cortisporin Ophth) 2 abdi BID OU 06/10/21 21:00 06/13/21 23:00 DC 06/13/21 20:08 Carbidopa/Levodopa (Sinemet 25/100) 1 tab 6XDAY PO 06/15/21 15:00 06/15/21 22:00 Current Medications Medications (Trade) Dose Ordered Sig/Altaf Route PRN Reason Start Time Stop Time Status Last Admin Dose Admin Carbidopa/Levodopa (Sinemet 25/100) 1 tab 6XDAY PO 06/15/21 15:00 06/15/21 22:00 I have reviewed the current psychotropics carefully including drug interactions. Risk benefit ratio favors no change other than as noted in my dictated progress note. 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
[2021-06-16] MEDS: CARBIDOPA/LEVODOPA 25/100MG TABLET PO SCH ×6 (06:30→22:00)
--- NOTE | 2021-06-16 06:47 | PDOC ---
Exam Note: Hank Note: This note is a late entry for 06/14/2021 covers elements not covered in my initial note. Subjective: The patient was seen face to face in the evening of 06/14/2021 with Micheline SAM, discussed and reviewed the chart. The patient slept 7-3/4 hours previous night. He remains confused, appeared tired, withdrawn in the morning, more alert in the evening. Chest x-ray is negative. UA is unremarkable. He remains confused anxious, restless. He remains a fall risk and staff is monitoring this closely. Review of Systems: Impaired ambulation. No CV, pulmonary, eye, ENT system symptoms on review. Reliability poor. Mental Status Exam: The patient is oriented to himself and situation. Speech moderate to marked latency, low in rate and rhythm, low in volume. Abstraction fair. Computation impaired. Language function intact. Mood and affect withdrawn. Laboratory Data: Reviewed. Impression: Major depressive disorder recurrent. 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 Anxiety disorder unspecified. Impulse control disorder unspecified. Plan: No change from initial note. Assessment: Vital Signs/I&O: Vital Signs Date Time Temp Pulse Resp B/P (MAP) Pulse Ox O2 Delivery O2 Flow Rate FiO2 06/16/21 05:45 97.0 58 16 139/91 (107) 92 Room Air I & O 06/15/21 06/15/21 06/16/21 15:00 23:00 07:00 Intake Total 600 ml 240 ml Balance 600 ml 240 ml Labs: Laboratory Tests Test 06/15/21 09:44 White Blood Count 8.7 x10^3/uL (4.0-11.0) Red Blood Count 5.40 x10^6/uL (4.30-5.70) Hemoglobin 16.3 g/dL (13.0-17.5) Hematocrit 49.5 % (39.0-53.0) Mean Corpuscular Volume 92 fL (79-100) Mean Corpuscular Hemoglobin 30 pg (25-35) Mean Corpuscular Hemoglobin Concent 33 g/dL (31-37) Red Cell Distribution Width 14.4 % (11.5-14.5) Platelet Count 183 x10^3/uL (140-400) Neutrophils (%) (Auto) 68 % (31-73) Lymphocytes (%) (Auto) 21 % (24-48) L Monocytes (%) (Auto) 9 % (0-9) Eosinophils (%) (Auto) 2 % (0-3) Basophils (%) (Auto) 1 % (0-3) Neutrophils # (Auto) 5.9 x10^3uL (1.8-7.7) Lymphocytes # (Auto) 1.8 x10^3/uL (1.0-4.8) Monocytes # (Auto) 0.8 x10^3/uL (0.0-1.1) Eosinophils # (Auto) 0.1 x10^3/uL (0.0-0.7) Basophils # (Auto) 0.0 x10^3/uL (0.0-0.2) Sodium Level 145 mmol/L (136-145) Potassium Level 3.6 mmol/L (3.5-5.1) Chloride Level 106 mmol/L (98-107) Carbon Dioxide Level 28 mmol/L (21-32) Anion Gap 11 (6-14) Blood Urea Nitrogen 21 mg/dL (8-26) Creatinine 1.0 mg/dL (0.7-1.3) Estimated GFR (Cockcroft-Gault) 73.5 BUN/Creatinine Ratio 21 (6-20) H Glucose Level 91 mg/dL (70-99) Calcium Level 8.7 mg/dL (8.5-10.1) Total Bilirubin 1.0 mg/dL (0.2-1.0) Aspartate Amino Transferase (AST) 39 U/L (15-37) H Alanine Aminotransferase (ALT) 14 U/L (16-63) L Alkaline Phosphatase 92 U/L (46-116) Total Protein 7.8 g/dL (6.4-8.2) Albumin 3.5 g/dL (3.4-5.0) Albumin/Globulin Ratio 0.8 (1.0-1.7) L Current Medications: Meds: Laboratory Tests Test 06/15/21 09:44 White Blood Count 8.7 x10^3/uL Red Blood Count 5.40 x10^6/uL Hemoglobin 16.3 g/dL Hematocrit 49.5 % Mean Corpuscular Volume 92 fL Mean Corpuscular Hemoglobin 30 pg Mean Corpuscular Hemoglobin Concent 33 g/dL Red Cell Distribution Width 14.4 % Platelet Count 183 x10^3/uL Neutrophils (%) (Auto) 68 % Lymphocytes (%) (Auto) 21 % Monocytes (%) (Auto) 9 % Eosinophils (%) (Auto) 2 % Basophils (%) (Auto) 1 % Neutrophils # (Auto) 5.9 x10^3uL Lymphocytes # (Auto) 1.8 x10^3/uL Monocytes # (Auto) 0.8 x10^3/uL Eosinophils # (Auto) 0.1 x10^3/uL Basophils # (Auto) 0.0 x10^3/uL Sodium Level 145 mmol/L Potassium Level 3.6 mmol/L Chloride Level 106 mmol/L Carbon Dioxide Level 28 mmol/L Anion Gap 11 Blood Urea Nitrogen 21 mg/dL Creatinine 1.0 mg/dL Estimated GFR (Cockcroft-Gault) 73.5 BUN/Creatinine Ratio 21 Glucose Level 91 mg/dL Calcium Level 8.7 mg/dL Total Bilirubin 1.0 mg/dL Aspartate Amino Transf (AST/SGOT) 39 U/L Alanine Aminotransferase (ALT/SGPT) 14 U/L Alkaline Phosphatase 92 U/L Total Protein 7.8 g/dL Albumin 3.5 g/dL Albumin/Globulin Ratio 0.8 Current Medications Medications (Trade) Dose Ordered Sig/Altaf Route PRN Reason Start Time Stop Time Status Last Admin Dose Admin Acetaminophen (Tylenol) 650 mg PRN Q6HRS PRN PO MILD PAIN / TEMP > 100.3'F 05/30/21 13:00 Multi-Ingredient Ointment (Analgesic [place]) 1 abdi PRN QID PRN TP MUSCLE PAIN 05/30/21 13:00 Al Hydroxide/Mg Hydroxide (Mylanta Plus Xs) 15 ml PRN AFTMEALHC PRN PO DYSPEPSIA 05/30/21 13:00 Magnesium Hydroxide (Milk Of Magnesia) 2,400 mg PRN QHS PRN PO 3RD CHOICE CONSTIPATION 05/30/21 13:00 Alprazolam (Xanax) 0.5 mg PRN Q8HRS PRN PO ANXIETY 05/30/21 13:15 06/04/21 16:24 DC 06/04/21 13:23 Carbidopa/Levodopa (Sinemet 25/100) 1 tab 5XDAY PO 05/30/21 14:00 06/15/21 13:20 DC 06/15/21 10:02 Vitamin D (Vitamin D3) 2,000 unit DAILY PO 05/31/21 09:00 06/15/21 08:07 Cyclobenzaprine HCl (Flexeril) 10 mg PRN Q8HRS PRN PO MUSCLE SPASMS 05/30/21 13:15 Docusate Sodium (Colace) 100 mg PRN DAILY PRN PO 1ST CHOICE CONSTIPATION 05/30/21 13:15 Duloxetine HCl (Cymbalta) 60 mg DAILY PO 05/31/21 09:00 06/15/21 08:06 Albuterol/ Ipratropium (Combivent Respimat 20-100 Mcg) 1 puff PRN TID PRN INH SHORTNESS OF BREATH 05/30/21 14:00 Memantine (Namenda) 5 mg BID PO 05/30/21 21:00 06/03/21 23:30 DC 06/03/21 20:42 Ondansetron HCl (Zofran Odt) 4 mg PRN Q4HRS PRN PO 1ST CHOICE NAUSEA/VOMITING 05/30/21 13:15 Polyethylene Glycol (miraLAX) 17 gm PRN DAILY PRN PO 2ND CHOICE CONSTIPATION 05/30/21 13:15 Promethazine HCl (Phenergan Supp) 25 mg PRN Q4HRS PRN RC 2ND CHOICE NAUSEA 05/30/21 13:15 Alendronate Sodium (Fosamax) 70 mg WEEKLY@0600 PO 05/31/21 06:00 05/30/21 22:18 DC Albuterol Sulfate (Ventolin Hfa Inhaler) 1 puff RTQID INH 05/30/21 16:00 06/15/21 19:40 Calcium Carbonate/ Glycine (Tums) 500 mg TID PRN PRN PO HEARTBURN / GAS 05/30/21 14:00 Throat Lozenges (Cepacol Sore Throat Lozenge) 1 linnette PRN Q2HR PRN PO COUGH 05/30/21 14:00 Pregabalin (Lyrica) 100 mg BID PO 05/30/21 21:00 06/15/21 19:40 Alendronate Sodium (Fosamax) 70 mg Sa PO 05/31/21 06:00 06/14/21 05:05 Mirtazapine (Remeron) 7.5 mg QHS PO 05/31/21 21:00 06/15/21 19:39 Divalproex Sodium (Depakote Sprinkles) 125 mg 0900,1700 PO 06/01/21 17:00 06/04/21 16:24 DC 06/04/21 08:01 Divalproex Sodium (Depakote Sprinkles) 250 mg 0900,1700 PO 06/04/21 17:00 06/15/21 17:09 Olanzapine (ZyPREXA ZYDIS) 2.5 mg PRN Q2HR PRN PO PSYCHOSIS 06/04/21 16:30 06/08/21 20:58 Trazodone HCl (Desyrel) 50 mg PRN QHS PRN PO INSOMNIA 06/06/21 20:30 06/15/21 23:50 Neomycin/ Polymyxin/Bacitr/ Hydrocort (Cortisporin Ophth) 2 abdi BID OU 06/10/21 21:00 06/13/21 23:00 DC 06/13/21 20:08 Carbidopa/Levodopa (Sinemet 25/100) 1 tab 6XDAY PO 06/15/21 15:00 06/16/21 06:30 Current Medications Medications (Trade) Dose Ordered Sig/Altaf Route PRN Reason Start Time Stop Time Status Last Admin Dose Admin Carbidopa/Levodopa (Sinemet 25/100) 1 tab 6XDAY PO 06/15/21 15:00 06/16/21 06:30 I have reviewed the current psychotropics carefully including drug interactions. Risk benefit ratio favors no change other than as noted in my dictated progress note. Diagnosis: Problems: (1) Major neurocognitive disorder (2) Impulse control disorder, unspecified (3) Anxiety disorder, unspecified (4) Dementia, vascular, with depression (5) Dementia, vascular, with delusions (6) Dementia in Alzheimer's disease with depression (7) Dementia in Alzheimer's disease with delusions (8) Dementia due to Parkinson's disease with behavioral disturbance RENEE RAINEY MD Jun 16, 2021 06:47
[2021-06-16] MEDS: DIVALPROEX 125 MG CAP.SPRINK PO SCH ×2 (08:22→17:00)
[2021-06-16] MEDS: CHOLECALCIFEROL (VITAMIN D3) 1,000 UNIT TABLET PO SCH (08:22)
[2021-06-16] MEDS: ALBUTEROL SULFATE 8GM INHALER. INH SCH ×4 (08:22→19:44)
[2021-06-16] MEDS: DULoxetine HCL 60 MG CAPSULE.DR PO SCH (08:23)
[2021-06-16] MEDS: PREGABALIN 50 MG CAPSULE PO SCH ×2 (08:23→19:44)
--- NOTE | 2021-06-16 11:30 | NUR ---
Nursing note: Pt in dining room at time of AM med pass and assessment. He is compliant with meds crushed in pudding and cooperative with assessment. He does not appear to be in any pain. Pt is very restless and anxious this AM because he "got accepted to the [employer]" and has to go. PRN given with good effect. He is currently sitting in the quiet martines to be monitored closely d/t him being unsteady on his feet. Will continue to monitor.
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
--- NOTE | 2021-06-16 13:48 | NUR ---
RONNIE left message for Raquel at [facility] to update and coordinate d/c planning for 06/18/21. Faxed current notes, medication list, and labs for Raquel to review and requested return phone call with transport time. Laurel, , declined invite to listen to team meeting today and RONNIE left her an update message with progress report and d/c plan after team meeting was completed. Addendum: 06/16/21 at 1357 by BRIAN TRUJILLO Received return call from Raquel with hop picker time at 9am on 06/18/21.
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
--- NOTE | 2021-06-16 14:13 | NUR ---
[facility] Social Work Discharge Planning Form Patient Name SILVER ROBERT Admit Date: 05/30/21 DISCHARGE PLAN Discharge Destination: [facility] Care Assessment: Previously completed Transportation: [facility] to transport on 06/18/21 at 9am. Special Instructions/Notes: Upon return to [facility], schedule follow up appointment with house physician in 7-10 days. Out patient psychotropic medication management is available at [facility] located at [address] [place] [address]. Silver's /POA, Laurel, would need to take her POA document to [facility] and complete the intake paperwork in order to schedule an appointment. DISCHARGE TO FACILITY Facility: [facility] Address: [facility] [place] [address] Contact Name: RONNIE García/activities PCP: Dr. Adamson [phone], (fax) Psychiatrist: See above "Special Instructions"
[2021-06-16 16:26] VITALS: BP 146/93
[2021-06-16] MEDS: MIRTAZAPINE 7.5 MG TABLET. PO SCH (19:44)
--- NOTE | 2021-06-16 21:59 | PDOC ---
Exam Note: Hank Note: Please also refer to the separate dictated note~for this date of service dictated separately.~Patient seen individually. Discussed the patient with Nursing staff reviewed the chart.~Reviewed interim history and current functioning. Reviewed vital signs,~Labs/ Radiology~and current medications noted below. Continue current treatment with the changes noted in the dictated addendum note Assessment: Vital Signs/I&O: Vital Signs Date Time Temp Pulse Resp B/P (MAP) Pulse Ox O2 Delivery O2 Flow Rate FiO2 06/16/21 16:26 97.5 54 22 146/93 (110) 97 06/16/21 05:45 Room Air I & O 06/15/21 06/15/21 06/16/21 15:00 23:00 07:00 Intake Total 600 ml 240 ml Balance 600 ml 240 ml Current Medications: Meds: Current Medications Medications (Trade) Dose Ordered Sig/Altaf Route PRN Reason Start Time Stop Time Status Last Admin Dose Admin Acetaminophen (Tylenol) 650 mg PRN Q6HRS PRN PO MILD PAIN / TEMP > 100.3'F 05/30/21 13:00 Multi-Ingredient Ointment (Analgesic [place]) 1 abdi PRN QID PRN TP MUSCLE PAIN 05/30/21 13:00 Al Hydroxide/Mg Hydroxide (Mylanta Plus Xs) 15 ml PRN AFTMEALHC PRN PO DYSPEPSIA 05/30/21 13:00 Magnesium Hydroxide (Milk Of Magnesia) 2,400 mg PRN QHS PRN PO 3RD CHOICE CONSTIPATION 05/30/21 13:00 Alprazolam (Xanax) 0.5 mg PRN Q8HRS PRN PO ANXIETY 05/30/21 13:15 06/04/21 16:24 DC 06/04/21 13:23 Carbidopa/Levodopa (Sinemet 25/100) 1 tab 5XDAY PO 05/30/21 14:00 06/15/21 13:20 DC 06/15/21 10:02 Vitamin D (Vitamin D3) 2,000 unit DAILY PO 05/31/21 09:00 06/16/21 08:22 Cyclobenzaprine HCl (Flexeril) 10 mg PRN Q8HRS PRN PO MUSCLE SPASMS 05/30/21 13:15 Docusate Sodium (Colace) 100 mg PRN DAILY PRN PO 1ST CHOICE CONSTIPATION 05/30/21 13:15 Duloxetine HCl (Cymbalta) 60 mg DAILY PO 05/31/21 09:00 06/16/21 08:23 Albuterol/ Ipratropium (Combivent Respimat 20-100 Mcg) 1 puff PRN TID PRN INH SHORTNESS OF BREATH 05/30/21 14:00 Memantine (Namenda) 5 mg BID PO 05/30/21 21:00 06/03/21 23:30 DC 06/03/21 20:42 Ondansetron HCl (Zofran Odt) 4 mg PRN Q4HRS PRN PO 1ST CHOICE NAUSEA/VOMITING 05/30/21 13:15 Polyethylene Glycol (miraLAX) 17 gm PRN DAILY PRN PO 2ND CHOICE CONSTIPATION 05/30/21 13:15 Promethazine HCl (Phenergan Supp) 25 mg PRN Q4HRS PRN RC 2ND CHOICE NAUSEA 05/30/21 13:15 Alendronate Sodium (Fosamax) 70 mg WEEKLY@0600 PO 05/31/21 06:00 05/30/21 22:18 DC Albuterol Sulfate (Ventolin Hfa Inhaler) 1 puff RTQID INH 05/30/21 16:00 06/16/21 19:44 Calcium Carbonate/ Glycine (Tums) 500 mg TID PRN PRN PO HEARTBURN / GAS 05/30/21 14:00 Throat Lozenges (Cepacol Sore Throat Lozenge) 1 linnette PRN Q2HR PRN PO COUGH 05/30/21 14:00 Pregabalin (Lyrica) 100 mg BID PO 05/30/21 21:00 06/16/21 19:44 Alendronate Sodium (Fosamax) 70 mg Sa PO 05/31/21 06:00 06/14/21 05:05 Mirtazapine (Remeron) 7.5 mg QHS PO 05/31/21 21:00 06/16/21 19:44 Divalproex Sodium (Depakote Sprinkles) 125 mg 0900,1700 PO 06/01/21 17:00 06/04/21 16:24 DC 06/04/21 08:01 Divalproex Sodium (Depakote Sprinkles) 250 mg 0900,1700 PO 06/04/21 17:00 06/16/21 08:22 Olanzapine (ZyPREXA ZYDIS) 2.5 mg PRN Q2HR PRN PO PSYCHOSIS 06/04/21 16:30 06/16/21 09:27 Trazodone HCl (Desyrel) 50 mg PRN QHS PRN PO INSOMNIA 06/06/21 20:30 06/15/21 23:50 Neomycin/ Polymyxin/Bacitr/ Hydrocort (Cortisporin Ophth) 2 abdi BID OU 06/10/21 21:00 06/13/21 23:00 DC 06/13/21 20:08 Carbidopa/Levodopa (Sinemet 25/100) 1 tab 6XDAY PO 06/15/21 15:00 06/16/21 18:18 I have reviewed the current psychotropics carefully including drug interactions. Risk benefit ratio favors no change other than as noted in my dictated progress note. Diagnosis: Problems: (1) Major neurocognitive disorder (2) Impulse control disorder, unspecified (3) Anxiety disorder, unspecified (4) Dementia, vascular, with depression (5) Dementia, vascular, with delusions (6) Dementia in Alzheimer's disease with depression (7) Dementia in Alzheimer's disease with delusions (8) Dementia due to Parkinson's disease with behavioral disturbance RENEE RAINEY MD Jun 16, 2021 21:59
--- NOTE | 2021-06-17 01:20 | NUR ---
Last evening pt sat quietly in wc in the hallway and was cooperative and social with peers. After going to bed he slept while and is now awake and restless. PRN trazodone given.
[2021-06-17] MEDS ORDERED: BENZ1LOZ48 PO (03:10)
[2021-06-17] MEDS ORDERED: DIVA125C2 PO (03:11)
[2021-06-17] MEDS ORDERED: MAG-115 PO (03:11)
[2021-06-17] MEDS ORDERED: MAGN24003 PO (03:11)
[2021-06-17] MEDS ORDERED: MIRT7.5T8 PO (03:12)
[2021-06-17] MEDS ORDERED: OLAN5TAB7 PO (03:12)
[2021-06-17] MEDS ORDERED: METH57CR17 TP (03:12)
[2021-06-17] MEDS ORDERED: TRAZ-120 PO (03:13)
[2021-06-17 05:30] VITALS: BP 109/73
[2021-06-17] MEDS: CARBIDOPA/LEVODOPA 25/100MG TABLET PO SCH ×6 (05:33→22:00)
[2021-06-17] MEDS: PREGABALIN 50 MG CAPSULE PO SCH ×2 (08:32→19:37)
[2021-06-17] MEDS: ALBUTEROL SULFATE 8GM INHALER. INH SCH ×4 (08:32→19:37)
[2021-06-17] MEDS: CHOLECALCIFEROL (VITAMIN D3) 1,000 UNIT TABLET PO SCH (08:33)
[2021-06-17] MEDS: DIVALPROEX 125 MG CAP.SPRINK PO SCH ×2 (08:33→17:16)
[2021-06-17] MEDS: DULoxetine HCL 60 MG CAPSULE.DR PO SCH (08:33)
--- NOTE | 2021-06-17 14:58 | NUR ---
Nurse Note Patient alert oriented to self, confused. Patient is complaint with medication. No behaviors at this time. appetite is adequate feeds self. No new behaviors noted. Planned discharge for WednesdayJun.18
[2021-06-17 15:47] VITALS: BP 110/73
[2021-06-17] MEDS: MIRTAZAPINE 7.5 MG TABLET. PO SCH (19:37)
--- NOTE | 2021-06-17 21:56 | PDOC ---
Exam Note: Hank Note: Please also refer to the separate dictated note~for this date of service dictated separately.~Patient seen individually. Discussed the patient with Nursing staff reviewed the chart.~Reviewed interim history and current functioning. Reviewed vital signs,~Labs/ Radiology~and current medications noted below. Continue current treatment with the changes noted in the dictated addendum note Assessment: Vital Signs/I&O: Vital Signs Date Time Temp Pulse Resp B/P (MAP) Pulse Ox O2 Delivery O2 Flow Rate FiO2 06/17/21 15:47 97.6 61 18 110/73 (85) 94 06/16/21 05:45 Room Air I & O 06/16/21 06/16/21 06/17/21 15:00 23:00 07:00 Intake Total 480 ml 240 ml Balance 480 ml 240 ml Current Medications: Meds: Current Medications Medications (Trade) Dose Ordered Sig/Altaf Route PRN Reason Start Time Stop Time Status Last Admin Dose Admin Acetaminophen (Tylenol) 650 mg PRN Q6HRS PRN PO MILD PAIN / TEMP > 100.3'F 05/30/21 13:00 Multi-Ingredient Ointment (Analgesic [place]) 1 abdi PRN QID PRN TP MUSCLE PAIN 05/30/21 13:00 Al Hydroxide/Mg Hydroxide (Mylanta Plus Xs) 15 ml PRN AFTMEALHC PRN PO DYSPEPSIA 05/30/21 13:00 Magnesium Hydroxide (Milk Of Magnesia) 2,400 mg PRN QHS PRN PO 3RD CHOICE CONSTIPATION 05/30/21 13:00 Alprazolam (Xanax) 0.5 mg PRN Q8HRS PRN PO ANXIETY 05/30/21 13:15 06/04/21 16:24 DC 06/04/21 13:23 Carbidopa/Levodopa (Sinemet 25/100) 1 tab 5XDAY PO 05/30/21 14:00 06/15/21 13:20 DC 06/15/21 10:02 Vitamin D (Vitamin D3) 2,000 unit DAILY PO 05/31/21 09:00 06/17/21 08:33 Cyclobenzaprine HCl (Flexeril) 10 mg PRN Q8HRS PRN PO MUSCLE SPASMS 05/30/21 13:15 Docusate Sodium (Colace) 100 mg PRN DAILY PRN PO 1ST CHOICE CONSTIPATION 05/30/21 13:15 Duloxetine HCl (Cymbalta) 60 mg DAILY PO 05/31/21 09:00 06/17/21 08:33 Albuterol/ Ipratropium (Combivent Respimat 20-100 Mcg) 1 puff PRN TID PRN INH SHORTNESS OF BREATH 05/30/21 14:00 Memantine (Namenda) 5 mg BID PO 05/30/21 21:00 06/03/21 23:30 DC 06/03/21 20:42 Ondansetron HCl (Zofran Odt) 4 mg PRN Q4HRS PRN PO 1ST CHOICE NAUSEA/VOMITING 05/30/21 13:15 Polyethylene Glycol (miraLAX) 17 gm PRN DAILY PRN PO 2ND CHOICE CONSTIPATION 05/30/21 13:15 Promethazine HCl (Phenergan Supp) 25 mg PRN Q4HRS PRN RC 2ND CHOICE NAUSEA 05/30/21 13:15 Alendronate Sodium (Fosamax) 70 mg WEEKLY@0600 PO 05/31/21 06:00 05/30/21 22:18 DC Albuterol Sulfate (Ventolin Hfa Inhaler) 1 puff RTQID INH 05/30/21 16:00 06/17/21 19:37 Calcium Carbonate/ Glycine (Tums) 500 mg TID PRN PRN PO HEARTBURN / GAS 05/30/21 14:00 Throat Lozenges (Cepacol Sore Throat Lozenge) 1 linnette PRN Q2HR PRN PO COUGH 05/30/21 14:00 Pregabalin (Lyrica) 100 mg BID PO 05/30/21 21:00 06/17/21 19:37 Alendronate Sodium (Fosamax) 70 mg Sa PO 05/31/21 06:00 06/14/21 05:05 Mirtazapine (Remeron) 7.5 mg QHS PO 05/31/21 21:00 06/17/21 19:37 Divalproex Sodium (Depakote Sprinkles) 125 mg 0900,1700 PO 06/01/21 17:00 06/04/21 16:24 DC 06/04/21 08:01 Divalproex Sodium (Depakote Sprinkles) 250 mg 0900,1700 PO 06/04/21 17:00 06/17/21 17:16 Olanzapine (ZyPREXA ZYDIS) 2.5 mg PRN Q2HR PRN PO PSYCHOSIS 06/04/21 16:30 06/16/21 09:27 Trazodone HCl (Desyrel) 50 mg PRN QHS PRN PO INSOMNIA 06/06/21 20:30 06/15/21 23:50 Neomycin/ Polymyxin/Bacitr/ Hydrocort (Cortisporin Ophth) 2 abdi BID OU 06/10/21 21:00 06/13/21 23:00 DC 06/13/21 20:08 Carbidopa/Levodopa (Sinemet 25/100) 1 tab 6XDAY PO 06/15/21 15:00 06/17/21 19:37 I have reviewed the current psychotropics carefully including drug interactions. Risk benefit ratio favors no change other than as noted in my dictated progress note. Diagnosis: Problems: (1) Major neurocognitive disorder (2) Impulse control disorder, unspecified (3) Anxiety disorder, unspecified (4) Dementia, vascular, with depression (5) Dementia, vascular, with delusions (6) Dementia in Alzheimer's disease with depression (7) Dementia in Alzheimer's disease with delusions (8) Dementia due to Parkinson's disease with behavioral disturbance RENEE RAINEY MD Jun 17, 2021 21:56
[2021-06-18] MEDS: CARBIDOPA/LEVODOPA 25/100MG TABLET PO SCH ×2 (04:51→08:45)
[2021-06-18 06:05] VITALS: BP 134/80
[2021-06-18] MEDS: DIVALPROEX 125 MG CAP.SPRINK PO SCH (08:44)
[2021-06-18] MEDS: ALBUTEROL SULFATE 8GM INHALER. INH SCH (08:44)
[2021-06-18] MEDS: PREGABALIN 50 MG CAPSULE PO SCH (08:45)
[2021-06-18] MEDS: CHOLECALCIFEROL (VITAMIN D3) 1,000 UNIT TABLET PO SCH (08:45)
[2021-06-18] MEDS: DULoxetine HCL 60 MG CAPSULE.DR PO SCH (08:45)
--- NOTE | 2021-06-18 08:56 | PDOC ---
Exam Note: Hank Note: This note is a late entry for 06/15/2021 covers elements not covered in my initial note. Subjective: The patient was seen face to face in the evening of 06/15/2021 with Micheline SAM, discussed and reviewed the chart. The patient slept 7 hours previous night. Overall the he remains somewhat withdrawn. For his P arkinsons, Dr. Solano did see him from a neurological standpoint and Sinemet has been increased from 5 times a day to 6 times a day. He has been a little more interactive at certain times and more withdrawn at other times. He is not aggressive or disruptive. Review of Systems: Impaired ambulation consequent to his Parkinsons. No CV, pulmonary, eye, ENT system symptoms on review. Mental Status Exam: The patient is oriented to himself and situation. Speech moderate to marked latency, low in rate and rhythm, low in volume. Abstraction fair. Computation impaired. Language function intact. Mood and affect withdrawn. Laboratory Data: Reviewed. Impression: Major depressive disorder recurrent. 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 Anxiety disorder unspecified. Impulse control disorder unspecified. Plan: No change from initial note. Assessment: Vital Signs/I&O: Vital Signs Date Time Temp Pulse Resp B/P (MAP) Pulse Ox O2 Delivery O2 Flow Rate FiO2 06/18/21 06:05 97.1 62 16 134/80 (98) 93 06/16/21 05:45 Room Air I & O 06/17/21 06/17/21 06/18/21 15:00 23:00 07:00 Intake Total 960 ml 480 ml Balance 960 ml 480 ml Current Medications: Meds: Current Medications Medications (Trade) Dose Ordered Sig/Altaf Route PRN Reason Start Time Stop Time Status Last Admin Dose Admin Acetaminophen (Tylenol) 650 mg PRN Q6HRS PRN PO MILD PAIN / TEMP > 100.3'F 05/30/21 13:00 Multi-Ingredient Ointment (Analgesic [place]) 1 abdi PRN QID PRN TP MUSCLE PAIN 05/30/21 13:00 Al Hydroxide/Mg Hydroxide (Mylanta Plus Xs) 15 ml PRN AFTMEALHC PRN PO DYSPEPSIA 05/30/21 13:00 Magnesium Hydroxide (Milk Of Magnesia) 2,400 mg PRN QHS PRN PO 3RD CHOICE CONSTIPATION 05/30/21 13:00 Alprazolam (Xanax) 0.5 mg PRN Q8HRS PRN PO ANXIETY 05/30/21 13:15 06/04/21 16:24 DC 06/04/21 13:23 Carbidopa/Levodopa (Sinemet 25/100) 1 tab 5XDAY PO 05/30/21 14:00 06/15/21 13:20 DC 06/15/21 10:02 Vitamin D (Vitamin D3) 2,000 unit DAILY PO 05/31/21 09:00 06/18/21 08:45 Cyclobenzaprine HCl (Flexeril) 10 mg PRN Q8HRS PRN PO MUSCLE SPASMS 05/30/21 13:15 Docusate Sodium (Colace) 100 mg PRN DAILY PRN PO 1ST CHOICE CONSTIPATION 05/30/21 13:15 Duloxetine HCl (Cymbalta) 60 mg DAILY PO 05/31/21 09:00 06/18/21 08:45 Albuterol/ Ipratropium (Combivent Respimat 20-100 Mcg) 1 puff PRN TID PRN INH SHORTNESS OF BREATH 05/30/21 14:00 Memantine (Namenda) 5 mg BID PO 05/30/21 21:00 06/03/21 23:30 DC 06/03/21 20:42 Ondansetron HCl (Zofran Odt) 4 mg PRN Q4HRS PRN PO 1ST CHOICE NAUSEA/VOMITING 05/30/21 13:15 Polyethylene Glycol (miraLAX) 17 gm PRN DAILY PRN PO 2ND CHOICE CONSTIPATION 05/30/21 13:15 Promethazine HCl (Phenergan Supp) 25 mg PRN Q4HRS PRN RC 2ND CHOICE NAUSEA 05/30/21 13:15 Alendronate Sodium (Fosamax) 70 mg WEEKLY@0600 PO 05/31/21 06:00 05/30/21 22:18 DC Albuterol Sulfate (Ventolin Hfa Inhaler) 1 puff RTQID INH 05/30/21 16:00 06/18/21 08:44 Calcium Carbonate/ Glycine (Tums) 500 mg TID PRN PRN PO HEARTBURN / GAS 05/30/21 14:00 Throat Lozenges (Cepacol Sore Throat Lozenge) 1 linnette PRN Q2HR PRN PO COUGH 05/30/21 14:00 Pregabalin (Lyrica) 100 mg BID PO 05/30/21 21:00 06/18/21 08:45 Alendronate Sodium (Fosamax) 70 mg Sa PO 05/31/21 06:00 06/14/21 05:05 Mirtazapine (Remeron) 7.5 mg QHS PO 05/31/21 21:00 06/17/21 19:37 Divalproex Sodium (Depakote Sprinkles) 125 mg 0900,1700 PO 06/01/21 17:00 06/04/21 16:24 DC 06/04/21 08:01 Divalproex Sodium (Depakote Sprinkles) 250 mg 0900,1700 PO 06/04/21 17:00 06/18/21 08:44 Olanzapine (ZyPREXA ZYDIS) 2.5 mg PRN Q2HR PRN PO PSYCHOSIS 06/04/21 16:30 06/16/21 09:27 Trazodone HCl (Desyrel) 50 mg PRN QHS PRN PO INSOMNIA 06/06/21 20:30 06/15/21 23:50 Neomycin/ Polymyxin/Bacitr/ Hydrocort (Cortisporin Ophth) 2 abdi BID OU 06/10/21 21:00 06/13/21 23:00 DC 06/13/21 20:08 Carbidopa/Levodopa (Sinemet 25/100) 1 tab 6XDAY PO 06/15/21 15:00 06/18/21 08:45 I have reviewed the current psychotropics carefully including drug interactions. Risk benefit ratio favors no change other than as noted in my dictated progress note. Diagnosis: Problems: (1) Major neurocognitive disorder (2) Impulse control disorder, unspecified (3) Anxiety disorder, unspecified (4) Dementia, vascular, with depression (5) Dementia, vascular, with delusions (6) Dementia in Alzheimer's disease with depression (7) Dementia in Alzheimer's disease with delusions (8) Dementia due to Parkinson's disease with behavioral disturbance RENEE RAINEY MD Jun 18, 2021 08:56
--- NOTE | 2021-06-18 09:21 | PDOC ---
Exam Note: Hank Note: This note is a late entry for 06/16/2021 covers elements not covered in my initial note. Subjective: The patient was reviewed at treatment team meeting individually in the morning on 06/16/2021 with Laine Sanchez, Chio Hurd (social sciences research scientist), Desi, activity therapy and Tiff SAM, discussed and reviewed the chart. The patient slept 7-1/2 hours previous night. Average sleep 6-3/4 hours. Appetite 50%. Patient remains somewhat withdrawn, at times little more interactive at other times and per nursing report they stated his mood has been back and forth. At times he has been weight per nursing staff even though he is able to assist somewhat with himself. He has been delusional, talking about [facility]. He has been wandering at times one on one, little interaction in groups. Review of Systems: Impaired ambulation consequent to his Parkinsons. No CV, pulmonary, eye, ENT system symptoms on review. Mental Status Exam: The patient is oriented to himself. Insight and judgment, recent and remote memory, attention and concentration is poor consistent with his diagnoses. Laboratory Data: Reviewed. Impression: Major depressive disorder recurrent. 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 Anxiety disorder unspecified. Impulse control disorder unspecified. Plan: Continue current psychotropics. Adjust further as clinically indicated. Assessment: Vital Signs/I&O: Vital Signs Date Time Temp Pulse Resp B/P (MAP) Pulse Ox O2 Delivery O2 Flow Rate FiO2 06/18/21 06:05 97.1 62 16 134/80 (98) 93 06/16/21 05:45 Room Air I & O 06/17/21 06/17/21 06/18/21 15:00 23:00 07:00 Intake Total 960 ml 480 ml Balance 960 ml 480 ml Current Medications: Meds: Current Medications Medications (Trade) Dose Ordered Sig/Altaf Route PRN Reason Start Time Stop Time Status Last Admin Dose Admin Acetaminophen (Tylenol) 650 mg PRN Q6HRS PRN PO MILD PAIN / TEMP > 100.3'F 05/30/21 13:00 Multi-Ingredient Ointment (Analgesic [place]) 1 abdi PRN QID PRN TP MUSCLE PAIN 05/30/21 13:00 Al Hydroxide/Mg Hydroxide (Mylanta Plus Xs) 15 ml PRN AFTMEALHC PRN PO DYSPEPSIA 05/30/21 13:00 Magnesium Hydroxide (Milk Of Magnesia) 2,400 mg PRN QHS PRN PO 3RD CHOICE CONSTIPATION 05/30/21 13:00 Alprazolam (Xanax) 0.5 mg PRN Q8HRS PRN PO ANXIETY 05/30/21 13:15 06/04/21 16:24 DC 06/04/21 13:23 Carbidopa/Levodopa (Sinemet 25/100) 1 tab 5XDAY PO 05/30/21 14:00 06/15/21 13:20 DC 06/15/21 10:02 Vitamin D (Vitamin D3) 2,000 unit DAILY PO 05/31/21 09:00 06/18/21 08:45 Cyclobenzaprine HCl (Flexeril) 10 mg PRN Q8HRS PRN PO MUSCLE SPASMS 05/30/21 13:15 Docusate Sodium (Colace) 100 mg PRN DAILY PRN PO 1ST CHOICE CONSTIPATION 05/30/21 13:15 Duloxetine HCl (Cymbalta) 60 mg DAILY PO 05/31/21 09:00 06/18/21 08:45 Albuterol/ Ipratropium (Combivent Respimat 20-100 Mcg) 1 puff PRN TID PRN INH SHORTNESS OF BREATH 05/30/21 14:00 Memantine (Namenda) 5 mg BID PO 05/30/21 21:00 06/03/21 23:30 DC 06/03/21 20:42 Ondansetron HCl (Zofran Odt) 4 mg PRN Q4HRS PRN PO 1ST CHOICE NAUSEA/VOMITING 05/30/21 13:15 Polyethylene Glycol (miraLAX) 17 gm PRN DAILY PRN PO 2ND CHOICE CONSTIPATION 05/30/21 13:15 Promethazine HCl (Phenergan Supp) 25 mg PRN Q4HRS PRN RC 2ND CHOICE NAUSEA 05/30/21 13:15 Alendronate Sodium (Fosamax) 70 mg WEEKLY@0600 PO 05/31/21 06:00 05/30/21 22:18 DC Albuterol Sulfate (Ventolin Hfa Inhaler) 1 puff RTQID INH 05/30/21 16:00 06/18/21 08:44 Calcium Carbonate/ Glycine (Tums) 500 mg TID PRN PRN PO HEARTBURN / GAS 05/30/21 14:00 Throat Lozenges (Cepacol Sore Throat Lozenge) 1 linnette PRN Q2HR PRN PO COUGH 05/30/21 14:00 Pregabalin (Lyrica) 100 mg BID PO 05/30/21 21:00 06/18/21 08:45 Alendronate Sodium (Fosamax) 70 mg Sa PO 05/31/21 06:00 06/14/21 05:05 Mirtazapine (Remeron) 7.5 mg QHS PO 05/31/21 21:00 06/17/21 19:37 Divalproex Sodium (Depakote Sprinkles) 125 mg 0900,1700 PO 06/01/21 17:00 06/04/21 16:24 DC 06/04/21 08:01 Divalproex Sodium (Depakote Sprinkles) 250 mg 0900,1700 PO 06/04/21 17:00 06/18/21 08:44 Olanzapine (ZyPREXA ZYDIS) 2.5 mg PRN Q2HR PRN PO PSYCHOSIS 06/04/21 16:30 06/16/21 09:27 Trazodone HCl (Desyrel) 50 mg PRN QHS PRN PO INSOMNIA 06/06/21 20:30 06/15/21 23:50 Neomycin/ Polymyxin/Bacitr/ Hydrocort (Cortisporin Ophth) 2 abdi BID OU 06/10/21 21:00 06/13/21 23:00 DC 06/13/21 20:08 Carbidopa/Levodopa (Sinemet 25/100) 1 tab 6XDAY PO 06/15/21 15:00 06/18/21 08:45 I have reviewed the current psychotropics carefully including drug interactions. Risk benefit ratio favors no change other than as noted in my dictated progress note. Diagnosis: Problems: (1) Major neurocognitive disorder (2) Impulse control disorder, unspecified (3) Anxiety disorder, unspecified (4) Dementia, vascular, with depression (5) Dementia, vascular, with delusions (6) Dementia in Alzheimer's disease with depression (7) Dementia in Alzheimer's disease with delusions (8) Dementia due to Parkinson's disease with behavioral disturbance RENEE RAINEY MD Jun 18, 2021 09:21
--- NOTE | 2021-06-18 10:29 | PDOC ---
Exam Note: Hank Note: This note is a late entry for 06/17/2021 covers elements not covered in my initial note. Subjective: The patient was seen face to face in the evening of 06/17/2021 with Suze SAM, discussed and reviewed the chart. The patient slept 5-1/4 hours previous night. The patient has been followed with Dr. Solano for his Parkinsons. He remains withdrawn. No new behaviors or aggression noted. Review of Systems: Impaired ambulation consequent to his Parkinsons. No CV, pulmonary, eye, ENT system symptoms on review. Mental Status Exam: The patient is oriented to himself. Insight and judgment, recent and remote memory, attention and concentration is poor consistent with his diagnoses. Laboratory Data: Reviewed. Impression: Major depressive disorder recurrent. 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 Anxiety disorder unspecified. Impulse control disorder unspecified. Plan: Continue current psychotropics. Adjust further as clinically indicated. Assessment: Vital Signs/I&O: Vital Signs Date Time Temp Pulse Resp B/P (MAP) Pulse Ox O2 Delivery O2 Flow Rate FiO2 06/18/21 06:05 97.1 62 16 134/80 (98) 93 06/16/21 05:45 Room Air I & O 06/17/21 06/17/21 06/18/21 15:00 23:00 07:00 Intake Total 960 ml 480 ml Balance 960 ml 480 ml Current Medications: Meds: Current Medications Medications (Trade) Dose Ordered Sig/Altaf Route PRN Reason Start Time Stop Time Status Last Admin Dose Admin Acetaminophen (Tylenol) 650 mg PRN Q6HRS PRN PO MILD PAIN / TEMP > 100.3'F 05/30/21 13:00 Multi-Ingredient Ointment (Analgesic [place]) 1 abdi PRN QID PRN TP MUSCLE PAIN 05/30/21 13:00 Al Hydroxide/Mg Hydroxide (Mylanta Plus Xs) 15 ml PRN AFTMEALHC PRN PO DYSPEPSIA 05/30/21 13:00 Magnesium Hydroxide (Milk Of Magnesia) 2,400 mg PRN QHS PRN PO 3RD CHOICE CONSTIPATION 05/30/21 13:00 Alprazolam (Xanax) 0.5 mg PRN Q8HRS PRN PO ANXIETY 05/30/21 13:15 06/04/21 16:24 DC 06/04/21 13:23 Carbidopa/Levodopa (Sinemet 25/100) 1 tab 5XDAY PO 05/30/21 14:00 06/15/21 13:20 DC 06/15/21 10:02 Vitamin D (Vitamin D3) 2,000 unit DAILY PO 05/31/21 09:00 06/18/21 08:45 Cyclobenzaprine HCl (Flexeril) 10 mg PRN Q8HRS PRN PO MUSCLE SPASMS 05/30/21 13:15 Docusate Sodium (Colace) 100 mg PRN DAILY PRN PO 1ST CHOICE CONSTIPATION 05/30/21 13:15 Duloxetine HCl (Cymbalta) 60 mg DAILY PO 05/31/21 09:00 06/18/21 08:45 Albuterol/ Ipratropium (Combivent Respimat 20-100 Mcg) 1 puff PRN TID PRN INH SHORTNESS OF BREATH 05/30/21 14:00 Memantine (Namenda) 5 mg BID PO 05/30/21 21:00 06/03/21 23:30 DC 06/03/21 20:42 Ondansetron HCl (Zofran Odt) 4 mg PRN Q4HRS PRN PO 1ST CHOICE NAUSEA/VOMITING 05/30/21 13:15 Polyethylene Glycol (miraLAX) 17 gm PRN DAILY PRN PO 2ND CHOICE CONSTIPATION 05/30/21 13:15 Promethazine HCl (Phenergan Supp) 25 mg PRN Q4HRS PRN RC 2ND CHOICE NAUSEA 05/30/21 13:15 Alendronate Sodium (Fosamax) 70 mg WEEKLY@0600 PO 05/31/21 06:00 05/30/21 22:18 DC Albuterol Sulfate (Ventolin Hfa Inhaler) 1 puff RTQID INH 05/30/21 16:00 06/18/21 08:44 Calcium Carbonate/ Glycine (Tums) 500 mg TID PRN PRN PO HEARTBURN / GAS 05/30/21 14:00 Throat Lozenges (Cepacol Sore Throat Lozenge) 1 linnette PRN Q2HR PRN PO COUGH 05/30/21 14:00 Pregabalin (Lyrica) 100 mg BID PO 05/30/21 21:00 06/18/21 08:45 Alendronate Sodium (Fosamax) 70 mg Sa PO 05/31/21 06:00 06/14/21 05:05 Mirtazapine (Remeron) 7.5 mg QHS PO 05/31/21 21:00 06/17/21 19:37 Divalproex Sodium (Depakote Sprinkles) 125 mg 0900,1700 PO 06/01/21 17:00 06/04/21 16:24 DC 06/04/21 08:01 Divalproex Sodium (Depakote Sprinkles) 250 mg 0900,1700 PO 06/04/21 17:00 06/18/21 08:44 Olanzapine (ZyPREXA ZYDIS) 2.5 mg PRN Q2HR PRN PO PSYCHOSIS 06/04/21 16:30 06/16/21 09:27 Trazodone HCl (Desyrel) 50 mg PRN QHS PRN PO INSOMNIA 06/06/21 20:30 06/15/21 23:50 Neomycin/ Polymyxin/Bacitr/ Hydrocort (Cortisporin Ophth) 2 abdi BID OU 06/10/21 21:00 06/13/21 23:00 DC 06/13/21 20:08 Carbidopa/Levodopa (Sinemet 25/100) 1 tab 6XDAY PO 06/15/21 15:00 06/18/21 08:45 I have reviewed the current psychotropics carefully including drug interactions. Risk benefit ratio favors no change other than as noted in my dictated progress note. Diagnosis: Problems: (1) Major neurocognitive disorder (2) Impulse control disorder, unspecified (3) Anxiety disorder, unspecified (4) Dementia, vascular, with depression (5) Dementia, vascular, with delusions (6) Dementia in Alzheimer's disease with depression (7) Dementia in Alzheimer's disease with delusions (8) Dementia due to Parkinson's disease with behavioral disturbance RENEE RAINEY MD Jun 18, 2021 10:29
--- NOTE | 2021-06-18 10:51 | NUR ---
Pt was medication compliant, calm, and cooperative this morning. He had breakfast and then [facility] was here about 0950 to pick him up. Pt. has been discharged and report was given to CECY Dempsey at [facility]
--- NOTE | 2021-06-18 21:52 | PDOC ---
Exam Note: Hank Note: Please also refer to the separate dictated note~for this date of service dictated separately.~Patient seen individually. Discussed the patient with Nursing staff reviewed the chart.~Reviewed interim history and current functioning. Reviewed vital signs,~Labs/ Radiology~and current medications noted below. Continue current treatment with the changes noted in the dictated addendum note Assessment: Vital Signs/I&O: Vital Signs Date Time Temp Pulse Resp B/P (MAP) Pulse Ox O2 Delivery O2 Flow Rate FiO2 06/18/21 06:05 97.1 62 16 134/80 (98) 93 06/16/21 05:45 Room Air I & O 06/17/21 06/17/21 06/18/21 15:00 23:00 07:00 Intake Total 960 ml 480 ml Balance 960 ml 480 ml Current Medications: Meds: Current Medications Medications (Trade) Dose Ordered Sig/Altaf Route PRN Reason Start Time Stop Time Status Last Admin Dose Admin Acetaminophen (Tylenol) 650 mg PRN Q6HRS PRN PO MILD PAIN / TEMP > 100.3'F 05/30/21 13:00 06/18/21 10:53 DC Multi-Ingredient Ointment (Analgesic [place]) 1 abdi PRN QID PRN TP MUSCLE PAIN 05/30/21 13:00 06/18/21 10:53 DC Al Hydroxide/Mg Hydroxide (Mylanta Plus Xs) 15 ml PRN AFTMEALHC PRN PO DYSPEPSIA 05/30/21 13:00 06/18/21 10:53 DC Magnesium Hydroxide (Milk Of Magnesia) 2,400 mg PRN QHS PRN PO 3RD CHOICE CONSTIPATION 05/30/21 13:00 06/18/21 10:53 DC Alprazolam (Xanax) 0.5 mg PRN Q8HRS PRN PO ANXIETY 05/30/21 13:15 06/04/21 16:24 DC 06/04/21 13:23 Carbidopa/Levodopa (Sinemet 25/100) 1 tab 5XDAY PO 05/30/21 14:00 06/15/21 13:20 DC 06/15/21 10:02 Vitamin D (Vitamin D3) 2,000 unit DAILY PO 05/31/21 09:00 06/18/21 10:53 DC 06/18/21 08:45 Cyclobenzaprine HCl (Flexeril) 10 mg PRN Q8HRS PRN PO MUSCLE SPASMS 05/30/21 13:15 06/18/21 10:53 DC Docusate Sodium (Colace) 100 mg PRN DAILY PRN PO 1ST CHOICE CONSTIPATION 05/30/21 13:15 06/18/21 10:53 DC Duloxetine HCl (Cymbalta) 60 mg DAILY PO 05/31/21 09:00 06/18/21 10:53 DC 06/18/21 08:45 Albuterol/ Ipratropium (Combivent Respimat 20-100 Mcg) 1 puff PRN TID PRN INH SHORTNESS OF BREATH 05/30/21 14:00 06/18/21 10:53 DC Memantine (Namenda) 5 mg BID PO 05/30/21 21:00 06/03/21 23:30 DC 06/03/21 20:42 Ondansetron HCl (Zofran Odt) 4 mg PRN Q4HRS PRN PO 1ST CHOICE NAUSEA/VOMITING 05/30/21 13:15 06/18/21 10:53 DC Polyethylene Glycol (miraLAX) 17 gm PRN DAILY PRN PO 2ND CHOICE CONSTIPATION 05/30/21 13:15 06/18/21 10:53 DC Promethazine HCl (Phenergan Supp) 25 mg PRN Q4HRS PRN RC 2ND CHOICE NAUSEA 05/30/21 13:15 06/18/21 10:53 DC Alendronate Sodium (Fosamax) 70 mg WEEKLY@0600 PO 05/31/21 06:00 05/30/21 22:18 DC Albuterol Sulfate (Ventolin Hfa Inhaler) 1 puff RTQID INH 05/30/21 16:00 06/18/21 10:53 DC 06/18/21 08:44 Calcium Carbonate/ Glycine (Tums) 500 mg TID PRN PRN PO HEARTBURN / GAS 05/30/21 14:00 06/18/21 10:53 DC Throat Lozenges (Cepacol Sore Throat Lozenge) 1 linnette PRN Q2HR PRN PO COUGH 05/30/21 14:00 06/18/21 10:53 DC Pregabalin (Lyrica) 100 mg BID PO 05/30/21 21:00 06/18/21 10:53 DC 9/1/21 08:45 Alendronate Sodium (Fosamax) 70 mg Sa PO 05/31/21 06:00 06/18/21 10:53 DC 06/14/21 05:05 Mirtazapine (Remeron) 7.5 mg QHS PO 05/31/21 21:00 06/18/21 10:53 DC 06/17/21 19:37 Divalproex Sodium (Depakote Sprinkles) 125 mg 0900,1700 PO 06/01/21 17:00 06/04/21 16:24 DC 06/04/21 08:01 Divalproex Sodium (Depakote Sprinkles) 250 mg 0900,1700 PO 06/04/21 17:00 06/18/21 10:53 DC 06/18/21 08:44 Olanzapine (ZyPREXA ZYDIS) 2.5 mg PRN Q2HR PRN PO PSYCHOSIS 06/04/21 16:30 06/18/21 10:53 DC 06/16/21 09:27 Trazodone HCl (Desyrel) 50 mg PRN QHS PRN PO INSOMNIA 06/06/21 20:30 06/18/21 10:53 DC 06/15/21 23:50 Neomycin/ Polymyxin/Bacitr/ Hydrocort (Cortisporin Ophth) 2 abdi BID OU 06/10/21 21:00 06/13/21 23:00 DC 06/13/21 20:08 Carbidopa/Levodopa (Sinemet 25/100) 1 tab 6XDAY PO 06/15/21 15:00 06/18/21 10:53 DC 06/18/21 08:45 I have reviewed the current psychotropics carefully including drug interactions. Risk benefit ratio favors no change other than as noted in my dictated progress note. Diagnosis: Problems: (1) Major neurocognitive disorder (2) Impulse control disorder, unspecified (3) Anxiety disorder, unspecified (4) Dementia, vascular, with depression (5) Dementia, vascular, with delusions (6) Dementia in Alzheimer's disease with depression (7) Dementia in Alzheimer's disease with delusions (8) Dementia due to Parkinson's disease with behavioral disturbance RENEE RAINEY MD Jun 18, 2021 21:52
--- NOTE | 2021-06-19 22:07 | DS ---
DATE OF DISCHARGE: 06/18/2021 DISCHARGE SUMMARY/PSYCHIATRIC PROGRESS NOTE This is a late entry, date of service 06/18, covers elements not covered in my initial note. REASON FOR ADMISSION: Please refer to the admission history for details. Briefly, the patient is a 71-year-old male referred to us from [facility] by his primary care physician/psychiatrist on account of worsening confusion within the context of his diagnosis of major neurocognitive disorder, Alzheimer vascular possibly secondary to Parkinson's with delusion, depression, behavioral disturbance. The patient had been agitated with staff at the halfway, making verbal threats to beat their "asses." He grabbed a staff from the buttock while she was assisting him to bed. He was wandering in the halls and in others' rooms. He was resistive to cares, attempting to hit staff. He had attempted to hug and kiss staff and showed his genitals to staff. He was hallucinating that his was present when she was not. He had failed outpatient psychiatric interventions. Behavior is deemed dangerous, unmanageable, resulting in this referral. SIGNIFICANT FINDINGS AND CLINICAL COURSE: Following admission, the patient was seen daily individually by myself from a psychiatric standpoint, medical followup with Dr. Silva/Dr. Miller. The patient remained confused, withdrawn at times, more oriented than other times consistent with his diagnosis of dementia with Parkinson's versus Lewy body. Adjustments were made in his psychotropics and he seemed to respond to a combination of Cymbalta 60 mg a day, remained on Lyrica 100 mg b.i.d., Sinemet was adjusted by Dr. Solano for his Parkinson's, Remeron 7.5 mg at bedtime, Depakote sprinkles 250 mg twice a day, Zyprexa p.r.n., trazodone p.r.n. REVIEW OF SYSTEMS: Prior to discharge on 06/18, ambulation impaired. No CV, , pulmonary, eye, ENT system symptoms on review. Reliability poor. MENTAL STATUS EXAMINATION: Oriented to himself. Insight, judgment, recent and remote memory, attention, concentration, fund of knowledge poor consistent with his diagnosis. CONDITION ON DISCHARGE: Improved. FINAL DIAGNOSES: Major neurocognitive disorder, multifactorial, possibly secondary to Parkinson's, rule out Lewy body Alzheimer's with delusion, depression, behavioral disturbance; anxiety disorder, unspecified; impulse control disorder, unspecified. DISCHARGE MEDICATIONS: Please refer to the MRAD. DISCHARGE INSTRUCTIONS: Outpatient psychiatric and medical followup at the halfway. Time for discharge day management greater than [address]: Jordon TID: [id number]
== END 2021-06-18 09:50 | DRG 57 ==
LOC: GEROPSY 11:15
PROVIDERS: ADMIT Psychiatry & Neurology Psychiatry; ATTEND Psychiatry & Neurology Psychiatry
DX: G20 Parkinson's disease (principal); F01.50 Vascular dementia, unspecified severity, without behavioral disturbance, psychotic disturbance, mood disturbance, and anxiety; F02.81 Dementia in other diseases classified elsewhere, unspecified severity, with behavioral disturbance; F33.9 Major depressive disorder, recurrent, unspecified; F41.9 Anxiety disorder, unspecified; F63.9 Impulse disorder, unspecified; G30.9 Alzheimer's disease, unspecified; G47.00 Insomnia, unspecified; J43.9 Emphysema, unspecified; M81.0 Age-related osteoporosis without current pathological fracture; G89.29 Other chronic pain; K21.9 Gastro-esophageal reflux disease without esophagitis; Z91.81 History of falling; Z20.822 Contact with and (suspected) exposure to COVID-19
CPT/HCPCS: 36415; 71046; 80053; 80061; 80164; 81001; 82306; 82607; 82947; 83036; 83540; 83550; 83735; 84436; 84443; 84480; 85025; 85379; 86592; 93005; G0378; G0379; U0003; 97535